=== PATIENT | female | born 1945 | race Caucasian/White ===

== ENCOUNTER 2025-01-26 16:02 | Inpatient (IN) | payer MEDICARE, OTHER, SELFPAY ==
[2025-01-26] VITALS (11 sets, daily range): BP systolic 111–197; BP diastolic 52–86; PULSE 83–123; RESP 13–38; TEMP 36.9–39; O2SAT 94–99; BMI 23.0
--- NOTE | 2025-01-26 | ECG_ITS ---
Test Reason : ? stemi Blood Pressure : */* mmHG Vent. Rate : 121 BPM Atrial Rate : 121 BPM P-R Int : 154 ms QRS Dur : 90 ms QT Int : 328 ms P-R-T Axes : 95 24 96 degrees QTcB Int : 465 ms Sinus tachycardia with Premature atrial complexes Nonspecific ST and T wave abnormality Abnormal ECG When compared with ECG of 26-Jan-2025 16:06, No significant changes seen Referred By: Generic ED Physician Electronically Signed By: ALONSO BOX
--- NOTE | 2025-01-26 | ECG_ITS ---
Test Reason : tachycardia Blood Pressure : */* mmHG Vent. Rate : 119 BPM Atrial Rate : 119 BPM P-R Int : 160 ms QRS Dur : 86 ms QT Int : 338 ms P-R-T Axes : -5 -37 -28 degrees QTcB Int : 475 ms Sinus tachycardia Left axis deviation Nonspecific ST and T wave abnormality Abnormal ECG When compared with ECG of 26-Jan-2025 16:18, No significant changes seen Referred By: Moustapha Downing Electronically Signed By: ALONSO BOX
--- NOTE | 2025-01-26 | ECG_ITS ---
Test Reason : svt Blood Pressure : */* mmHG Vent. Rate : 182 BPM Atrial Rate : * BPM P-R Int : * ms QRS Dur : 86 ms QT Int : 230 ms P-R-T Axes : * 42 163 degrees QTcB Int : 400 ms Atrial fibrillation with rapid ventricular response Marked ST abnormality, possible lateral subendocardial injury Abnormal ECG When compared with ECG of 26-Jan-2025 18:33, Atrial fibrillation has replaced Sinus rhythm Vent. rate has increased by [address] now depressed in Anterior leads T wave inversion now evident in Lateral leads Referred By: Moustapha Downing Electronically Signed By: ALONSO BOX
--- NOTE | ~2025-01-26 | XR_ITS ---
CLINICAL HISTORY: vomiting Single view chest. Findings: The heart is enlarged. There is no CHF. No focal consolidation or pleural effusion is seen. Impression: No consolidation. There is prominence of the right hilum presumably due to the pulmonary artery however consider comparison to previous to ensure stability. This document has been electronically signed by: Grzegorz Flanagan MD on 01/26/2025 17:14:19
--- NOTE | ~2025-01-26 | FL_ITS ---
EXAMINATION: FL GUIDANCE ONLY HISTORY: RIGHT URETERAL STONE COMPARISON: Correlation is made with an unenhanced CT of the abdomen and pelvis dated 01/26/2025. TECHNIQUE: Fluoroscopy time: 96.6 seconds. Cumulative Dose: 27.39 mGy. Images: 4. FINDINGS: Images demonstrate placement of a right nephroureteral stent. Partial contrast opacification of the right intrarenal collecting system demonstrates a filling defect in the renal pelvis and an additional filling defect in a calyx in the interpolar region, compatible with calculi. FL/FL guidance in OR IMPRESSION: Fluoroscopy during procedure. Please see procedure report for additional information. Electronically signed by: Edgar Ayala MD 01/28/2025 07:12 AM EDT
--- NOTE | ~2025-01-26 | CT_ITS ---
CLINICAL HISTORY: fever, cough CT of the chest without contrast. No comparison. Findings: There is an incompletely visualized lipoma in the posterior paraspinous muscles on the right at the cervicothoracic junction. Small hiatal hernia. Mild mediastinal adenopathy is likely reactive. There is minimal pleural fluid on the right. There is severe interstitial pulmonary edema. Mild patchy airspace opacities bilaterally likely represent a combination of atelectasis and pulmonary edema. 5 mm pulmonary nodule adjacent to the left hilum series 4, image 57. There is mild motion artifact. Findings in the abdomen are described separately. Impression: Severe interstitial pulmonary edema. 5 mm nodule adjacent to the left hilum consider comparison to previous or follow-up. Other findings as above. This document has been electronically signed by: Grzegorz Flanagan MD on 01/26/2025 19:08:13
--- NOTE | ~2025-01-26 | CT_ITS ---
CLINICAL HISTORY: diffuse abd pain and vomiting CT of the abdomen and pelvis without intravenous contrast. No comparison. Findings: The liver is unremarkable. The gallbladder is mildly distended without definite cholelithiasis or adjacent inflammatory change. There is right nephrolithiasis. There are at least 2 stones in the proximal right ureter measuring up to 9 mm with moderate hydronephrosis and ill-defined perinephric fluid. There is pancreatic atrophy. There is no abdominal aortic aneurysm. There is severe aortoiliac atherosclerosis with multifocal high-grade stenosis. No diverticulitis is identified. Normal appendix. No bowel obstruction. There is a punctate collection of gas in the bladder. There are calcified uterine fibroids. There is prominent septal thickening in the lower lungs. Impression: Proximal right ureteral stones with moderate hydronephrosis. Severe aortoiliac atherosclerosis. Prominent septal thickening in the lower lung suspicious for pulmonary edema. Punctate collection of gas in the bladder possibly iatrogenic correlate clinically. Other findings as above. This document has been electronically signed by: Grzegorz Flanagan MD on 01/26/2025 18:12:21
--- NOTE | ~2025-01-26 | XR_ITS ---
CLINICAL HISTORY: ?chf 2 views chest Comparison: CT/SR - CT CHEST WO IV CON - 01/26/25 18:07 EDT CR - XR CHEST 1V - 01/26/25 16:38 EDT Findings: Cardiac and mediastinal contours are normal. Mild chronic interstitial prominence with scattered peribronchial thickening. No focal consolidation. Trace effusions possible. No pneumothorax. No acute osseous finding. Impression: Mild chronic interstitial prominence with scattered peribronchial thickening. No focal consolidation. No overt edema. Trace effusions possible. This document has been electronically signed by: Yang Wagner MD on 01/30/2025 11:33:40
--- NOTE | 2025-01-26 16:03 | ECG_ITS ---
Test Reason : CP Blood Pressure : */* mmHG Vent. Rate : 114 BPM Atrial Rate : 114 BPM P-R Int : 200 ms QRS Dur : 90 ms QT Int : 350 ms P-R-T Axes : 76 11 82 degrees QTcB Int : 482 ms Sinus tachycardia with Premature atrial complexes Nonspecific ST and T wave abnormality Abnormal ECG No previous ECGs available Referred By: Vanesa García Electronically Signed By: ALONSO BOX
--- NOTE | 2025-01-26 16:26 | ED.GENADULT ---
HPI - General Adult General Chief complaint: General Medical Stated complaint: chest pain Time Seen by Provider: 01/26/25 16:19 Source: patient and family ( Son) Mode of arrival: ambulatory Limitations: no limitations History of Present Illness ED Provider: DR. Downing HPI narrative: a 79-year-old female brought in by her son for evaluation of a generalized weakness, overall not feeling well, abdominal pain, nausea, and vomiting, no recent travel, no lower extremities swelling or tenderness, No chest pain, no shortness of breath, no fever no chills. Last bowel was this morning and was normal with no blood, no dysuria, no frequency urination. Related Data Allergies Allergy/AdvReac Type Severity Reaction Status Date / Time No Known Allergies Allergy Verified 01/26/25 16:32 Review of Systems Review of Systems: all other systems are reviewed and are negative Constitutional: Reports as per HPI and Reports no additional constitutional complaints Eyes: Reports as per HPI and Reports no additional eye complaints Reports system reviewed and no additional complaints, except as documented Cardiovascular: Reports as per HPI and Reports no additional cardiovascular complaints Respiratory: Reports as per HPI and Reports no additional respiratory complaints Gastrointestinal: Reports as per HPI and Reports no additional gastrointestinal complaints Genitourinary: Reports no additional female genitourinary complaints Musculoskeletal: Reports no additional musculoskeletal complaints Skin/Breast: Reports system reviewed and no additional complaints, except as docu Psychiatric: Reports no additional psychiatric complaints Endocrine: Reports no additional endocrine complaints Hematologic/Lymphatic: Reports no additional hematologic/lymphatic complaints Allergic/Immunologic: Reports no additional allergic/immunologic complaints Reports system reviewed and no additional complaints, except as documented and Reports Abnormal speech present [facility] Social History Social History Smoked in Last 30 Days: No Advance Directives: No Advance Directives Information Provided: No Physical Exam ED Vital Signs: Vital Signs - 24 hr 01/26/25 16:31 01/26/25 17:49 01/26/25 18:47 Temperature 101.4 F H 98.5 F Pulse Rate 114 H 116 H 123 H Respiratory Rate 18 24 H 38 H Blood Pressure 183/70 H 197/86 H 190/77 H Pulse Oximetry 94 97 96 Oxygen Delivery Method Room Air Oxymask Oxymask Oxygen Flow Rate 6 6 BMI result Body Mass Index 23.0 Vital signs have been reviewed and appear to be correct. Blood pressure elevated. Heart rate normal. Respiratory rate normal. Temperature normal. Oxygen saturation normal. Appearance: Alert. Oriented X3. No acute distress. Head: Normal external exam. Normocephalic. Atraumatic. No Love signs noted. No raccoon eyes noted Eyes: PERRLA. EOMI. Conjunctiva and sclera normal. Eyelids normal. ENT: TM's Normal. Pharynx normal. Uvula midline. Moist mucous membranes. No trismus noted. No drooling noted. No muffled voice noted. Neck: Normal inspection. Neck supple. FROM. No adenopathy. Thyroid Normal. No meningeal signs. No neck mass noted. CVS: Normal heart rate and rhythm. Heart sound normal. No murmurs noted. Pulses normal throughout. Respiratory: No respiratory distress. Painless inspiration. Breath sounds normal. No wheezes/rales/rhonchi noted. Chest nontender. No accessory muscle usage noted or decreased air movement noted. Abdomen: Soft and nontender. Bowel sounds normal in all 4 quadrants. No distention noted. No organomegaly noted. No visible injury noted. Back: R CVA tenderness. Full range of motion noted. Skin: Skin warm and dry. Normal skin color. Normal skin turgor. No rashes/lesions/lacerations noted. Extremities: No lower extremity edema. Extremities exhibit normal range of motion. Extremities nontender. Neuro: Oriented X 3. Cranial nerve exam: II-XII are grossly intact No motor deficit. No sensory deficit. Reflexes normal. Course Reevaluation(s) Reevaluation #1: 1. right proximal ureteric obstructive stone with perinephric stranding, patient with right pyelonephritis, patient received ceftriaxone, meet criteria for severe sepsis. 2. Patient received IV fluids for sepsis protocol, and ceftriaxone. 3. Case discussed with Dr. Bowers for obstructive uropathy wanted the patient to be admitted to medical service the case discussed with Dr. Conteh who accepted the patient to his service. 4. Patient had 1 episode of rapid atrial fibrillation that was controlled with metoprolol. Time: 19:19 Medications Administered Discontinued Medications Generic Name Dose Route Start Last Admin Trade Name Freq PRN Reason Stop Dose Admin Al Hydroxide/Mg Hydroxide 30 ml 01/26/25 16:26 01/26/25 17:51 Magnesium Hydrox/Alum Hydrox 30 Ml Oral.Susp PO 01/26/25 16:27 30 ml ONCE ONE Administration Ceftriaxone Sodium 1 gm 01/26/25 16:41 01/26/25 16:51 Ceftriaxone Sodium 1 Gm Vial IVPUSH 01/26/25 16:42 1 gm ONCE ONE Administration Famotidine 20 mg 01/26/25 16:26 01/26/25 16:30 Famotidine/Pf 20 Mg/2 Ml Vial IVPUSH 01/26/25 16:27 20 mg ONCE ONE Administration Sodium Chloride 1,000 mls @ 999 mls/hr 01/26/25 16:24 01/26/25 17:30 Ns IV 01/26/25 17:24 Infused .Q1H1M ONE Infusion Lactated Ringer's 1,000 mls @ 999 mls/hr 01/26/25 16:45 01/26/25 17:30 Lr IV 01/26/25 17:45 999 mls/hr .Q1H1M NATALIIA Infusion Acetaminophen 1,000 mg in 100 mls @ 400 mls/hr 01/26/25 18:58 01/26/25 19:00 Ofirmev IV 01/26/25 19:12 400 mls/hr ONCE ONE Administration Metoprolol Tartrate 5 mg 01/26/25 18:55 01/26/25 19:01 Metoprolol Tartrate 5 Mg/5 Ml Vial IVPUSH 01/26/25 18:56 5 mg ONCE ONE Administration Protocol Ondansetron HCl 4 mg 01/26/25 16:26 01/26/25 16:30 Ondansetron Hcl 4 Mg/2 Ml Vial IVPUSH 01/26/25 16:27 4 mg ONCE ONE Administration Ondansetron HCl 4 mg 01/26/25 18:57 01/26/25 19:00 Ondansetron Hcl 4 Mg/2 Ml Vial IVPUSH 01/26/25 18:58 4 mg ONCE ONE Administration Medical Decision Making Differential Diagnosis Differential Diagnoses: The differential diagnosis associated with the presentation includes ( simple UTI, pyelonephritis, kidney stone, pneumonia, pneumothorax, congestive heart failure, sepsis,) Admission/Observation Consideration of admission/observation: Escalation of care including admission/observation considered Consult Healthcare Provider Management of the patient was discussed with: Hospitalist ( Dr. Conteh) and [employer] ( Dr. Bowers) Lab Data MDM Lab Attestation statement: I reviewed the patient's lab results. 01/26/25 16:26 01/26/25 16:26 Labs: Lab Results 01/26/25 01/26/25 01/26/25 Range/Units 16:26 16:46 17:19 WBC 17.5 H (4.8-10.8) X10*3/uL RBC 5.21 (4.20-5.50) X10*6/uL Hgb 14.7 (12.0-16.0) g/dl Hct 40.8 (37.0-47.0) % MCV 78.3 L (80.0-98.0) fL MCH 28.2 (27.0-33.0) pg MCHC 36.0 H (31.0-35.0) g/dl RDW 13.8 (11.0-16.0) % Plt Count 205 (160-400) X10*3/uL MPV 9.9 (9.4-12.3) fL Immature Gran % (Auto) 0.6 H (0.0-0.4) % Neut % (Auto) 89.0 H (45-73) % Lymph % (Auto) 3.1 L (20-40) % [place] % (Auto) 7.2 (2-11) % Eos % (Auto) 0.0 (0-4) % Baso % (Auto) 0.1 (0-2) % Lymph # (Auto) 0.5 L (1.2-4.9) X10*3/uL [place] # (Auto) 1.3 H (0.1-1.2) X10*3/uL Eos # (Auto) 0.0 (0.0-0.4) X10*3/uL Baso # (Auto) 0.0 (0.0-0.2) X10*3/uL Abs Immat Gran (auto) 0.11 H (0.00-0.03) X10*3/uL Absolute Neuts (auto) 15.6 H (2.0-8.3) x10*3/uL Absolute Nucleated RBC 0.000 (0.0-0.012) X10*3/uL Nucleated RBC % (auto) 0.0 (0.0-0.2) /100WBC PT 13.1 H (10.9-12.4) SEC INR 1.1 (0.9-1.1) Hold Blue Top SEE NOTE Sodium 136 (135-145) mmol/L Potassium 3.9 (3.3-5.1) mmol/L Chloride 102 (96-108) mmol/L Carbon Dioxide 20 L (22-29) mmol/L Anion Gap 18 (12-20) BUN 32 H (9-16) mg/dL Creatinine 0.85 (0.5-1.4) mg/dL Estim Creat Clear Calc 41.1 Estimated GFR > 60 Random Glucose 235 H (60-115) mg/dL Lactic Acid 2.7 H* (0.5-2.0) mmol/L Calcium 10.1 (8.4-10.2) mg/dL Total Bilirubin 1.3 H (0.0-1.0) mg/dL Direct Bilirubin 0.4 (0.0-0.5) mg/dL AST 26 (5-31) U/L ALT 13 (0-31) U/L Alkaline Phosphatase 74 (39-117) U/L Troponin I High Sens 25.5 H (<3.5-17.0) ng/L B-Natriuretic Peptide 1041 H (<100) pg/mL Total Protein 7.9 (6.5-8.0) g/dL Albumin 4.5 (3.5-5.0) g/dL Lipase 15 (8-78) U/L Urine Color Yellow Urine Appearance Cloudy Urine pH 5.5 (5.0-9.0) Ur Specific [place] 1.025 (1.005-1.025) Urine Protein 300 (3+) H (Neg-Trace) mg/dL Urine Glucose (UA) >=1000 H (Negative) mg/dL Urine Ketones 15 (Negative) mg/dL Urine Blood Small (1+) H (Negative) Urine Nitrite Positive H (Negative) Ur Leukocyte Esterase Moderate (2+) H (Negative) Urine RBC 0-2 (0-2) /HPF Urine WBC 6-10 (0-5) /HPF Ur Squamous Epith Cells 0-2 (0-2) /HPF Urine Bacteria 4+ (None Seen) Hyaline Casts 3-5 (0-2) /LPF Influenza Type A (PCR) NEGATIVE (Negative) Influenza Type B (PCR) NEGATIVE (Negative) RSV RNA Qual (PCR) NEGATIVE (Negative) SARS-CoV-2 RNA (RT-PCR) NEGATIVE (Negative) Independent Interpretation I performed an independent interpretation of an: CT Scan ( chest: Abdomen pelvis:Severe interstitial pulmonary edema. 5 mm nodule adjacent to the left hilum consider comparison to previous or follow-up.Proximal right ureteral stones with moderate hydronephrosis. Severe aortoiliac atherosclerosis. Prominent septal thickening in the lower lung suspicious fo) Radiology Impression Discussion of test interpretation with radiology: I have reviewed the radiologist's reading. Critical Care Time Critical Care Time Critical Care Time: Yes Total Critical Care Time: 60 Attestation: The patient was critically ill with a high probability of imminent or life-threatening deterioration. I spent greater than 30 minutes of discontinuous time evaluating the patient, delivering critical care at the bedside, discussing evaluating data with consultants. Critical care time does not include time spent performing separately billable procedures or teaching. Time spent performing critical care was 60 minutes. Discharge Plan Discharge Clinical Impression: Acute pyelonephritis, Acute unilateral obstructive uropathy, Sepsis, Atrial fibrillation with RVR Patient Disposition: Admitted As Inpatient Print Language: Divehi
[2025-01-26] MEDS: 0.9 % Sodium Chloride 1,000 ML 999 ML IV (16:29)
[2025-01-26] MEDS: ondansetron HCL 4 MG/2 ML VIAL IVPUSH ×2 (16:30→19:00)
[2025-01-26] MEDS: Famotidine/PF 20 MG/2 ML VIAL IVPUSH (16:30)
[2025-01-26 16:36] LABS: MANUAL DIFF FLAG NO
[2025-01-26 16:38] LABS: Basophils Percent Auto 0.1 % (0-2); Hematocrit 40.8 % (37.0-47.0); Hemoglobin 14.7 g/dl (12.0-16.0); Imm Gran Abs Auto 0.11 X10*3/uL (0.00-0.03); Imm Gran Pct Auto 0.6 % (0.0-0.4); Lymphocytes Absolute Auto 0.5 X10*3/uL (1.2-4.9); Lymphocytes Percent Auto 3.1 % (20-40); Mean Corpuscular Hemoglobin 28.2 pg (27.0-33.0); Mean Corpuscular Volume 78.3 fL (80.0-98.0); Mean Platelet Volume 9.9 fL (9.4-12.3); Monocytes Absolute Auto 1.3 X10*3/uL (0.1-1.2); Monocytes Percent Auto 7.2 % (2-11); Neutrophils Absolute Auto 15.6 x10*3/uL (2.0-8.3); Platelet Count 205 X10*3/uL (160-400); Red Blood Count 5.21 X10*6/uL (4.20-5.50); Red Cell Distribution Width 13.8 % (11.0-16.0); White Blood Count 17.5 X10*3/uL (4.8-10.8)
[2025-01-26 16:48] LABS: INTERNATIONAL NORM RATIO 1.1 (0.9-1.1); Prothrombin Time 13.1 SEC (10.9-12.4)
[2025-01-26] MEDS: cefTRIAXone sodium 1 GM VIAL IVPUSH (16:51)
[2025-01-26] MEDS: Lactated Ringers 1,000 ML 999 ML IV (16:52)
[2025-01-26 17:00] LABS: B Type Natriuretic Peptide 1041 pg/mL (<100); Troponin-I High Sensitivity 25.5 ng/L (<3.5-17.0)
[2025-01-26 17:01] LABS: Alanine Aminotransferase 13 U/L (0-31); Albumin Level 4.5 g/dL (3.5-5.0); Alkaline Phosphatase 74 U/L (39-117); Anion Gap 18 (12-20); Aspartate Amino Transferase 26 U/L (5-31); Bilirubin Direct 0.4 mg/dL (0.0-0.5); Bilirubin Total 1.3 mg/dL (0.0-1.0); Blood Urea Nitrogen 32 mg/dL (9-16); Calcium 10.1 mg/dL (8.4-10.2); Carbon Dioxide 20 mmol/L (22-29); Chloride 102 mmol/L (96-108); Creatinine Clr Calc Pharmacy 41.1; Estimated Glomerular Filt Rate > 60; Glucose Random 235 mg/dL (60-115); Lipase 15 U/L (8-78); Potassium 3.9 mmol/L (3.3-5.1); Sodium 136 mmol/L (135-145); Total Protein 7.9 g/dL (6.5-8.0)
[2025-01-26 17:13] LABS: Lactic Acid 2.7 mmol/L (0.5-2.0)
[2025-01-26 17:29] LABS: Appearance Urine Cloudy; Color Urine Yellow; Glucose Urine UA >=1000 mg/dL (Negative); Leukocyte Esterase Urine Moderate (2+) (Negative); Nitrite Urine Positive (Negative); PH 5.5 (5.0-9.0); Specific Gravity - Urine 1.025 (1.005-1.025); UMIC TRIGGER UACC YES; Urine Blood Small (1+) (Negative); Urine Ketones 15 mg/dL (Negative); Urine Protein 300 (3+) mg/dL (Neg-Trace)
[2025-01-26 17:46] LABS: Bacteria Urine 4+ (None Seen); RBC Urine 0-2 /HPF (0-2); Squamous Epithelial Cell Urine 0-2 /HPF (0-2); UACC Culture Trigger YES
--- NOTE | 2025-01-26 17:49 | PC.NURSE ---
patient was found to be hypoxic at 81% on room air and tachypneic w/ respirations in the 30's. patient reporting feeling short of breath. placed on 6L oxymask, oxygen now 97%. provider made aware.
[2025-01-26] MEDS: Magnesium Hydrox/Alum Hydrox 30 ML ORAL.SUSP PO (17:51)
[2025-01-26 17:58] LABS: Influenza A PCR NEGATIVE (Negative); Influenza B PCR NEGATIVE (Negative); Resp Syncy Virus RNA Qual PCR NEGATIVE (Negative); SARS COV2 PCR INHOUSE NEGATIVE (Negative)
[2025-01-26 18:50] LABS: Reflex Lactate? Lactic Acid Added
[2025-01-26] MEDS: Acetaminophen 1,000 MG/100 ML PIGGYBACK 400 MG IV (19:00)
[2025-01-26] MEDS: Metoprolol Tartrate 5 MG/5 ML VIAL IVPUSH (19:01)
[2025-01-26] MEDS: Furosemide 40 MG/4 ML VIAL IVPUSH (19:27)
--- NOTE | 2025-01-26 19:33 | P.HPHOSP_ITS ---
History of Present Illness Date of Service: 01/26/25 Chief Complaint: Abd pain, nausea, vomiting This is a 79-year-old female with pertinent history of dis-dulvjbl-unegwvajt diabetes mellitus, hypertension, mood disorder, mixed hyperlipidemia who presents due to the emergency department for evaluation of generalized weakness and abdominal pain. Patient states she has been feeling unwell for a week. She has been feeling weak and is with easy fatigability and malaise. Also has been having right-sided flank pain which radiates to her groin. Has associated nausea and nonbloody emesis. Also having chills but no documented temperature at home. Minimal dyspnea but no chest pain or palpitations. Patient does endorse burning with micturition but no changes in bowel habits. In the emergency department, patient was found to be septic and urine concerning for UTI. Imaging with right ureteral stone with hydronephrosis. Also found to be in AFib with RVR. Imaging also revealed interstitial pulmonary edema and BNP was found to be elevated. Review of Systems 2 Constitutional: Constitutional: Reports fatigue, Reports lethargy, Reports malaise and Reports weakness Cardiovascular: Cardiovascular: Reports dyspnea on exertion Respiratory: Respiratory: Reports dyspnea on exertion Gastrointestinal: Gastrointestinal: Reports no additional gastrointestinal complaints Genitourinary: Genitourinary: Reports dysuria Neurologic: Reports weakness Endocrine: Endocrine: Reports fatigue PMFSH Medical History Mood disorder Mixed hyperlipidemia Hypertension Non-insulin dependent type 2 diabetes mellitus Pertinent family history: No family history of early CAD Social History Smoked in Last 30 Days: No Advance Directives: No Advance Directives Information Provided: No Meds Allergies Allergy/AdvReac Type Severity Reaction Status Date / Time No Known Allergies Allergy Verified 01/26/25 16:32 Home Medications ?Medication ?Instructions ?Recorded ?Confirmed ?Last Taken ?Type atenolol 100 mg tablet 100 mg PO DAILY 01/26/25 Unknown History glipizide 2.5 mg tablet, extended 2.5 mg PO DAILY 01/26/25 Unknown History release 24 hr lisinopril 40 mg tablet 60 mg PO DAILY 01/26/25 Unknown History metformin 500 mg tablet,extended 500 mg PO TID 01/26/25 Unknown History release 24 hr nifedipine 30 mg tablet,extended 30 mg PO DAILY 01/26/25 Unknown History release sertraline 100 mg tablet 100 mg PO DAILY 01/26/25 Unknown History simvastatin 80 mg tablet 80 mg PO DAILY 01/26/25 Unknown History Physical Exam 2 Vital Signs and Narrative: Vital Signs: Last Vital Signs Temp 100 F 01/26/25 19:23 Pulse 114 H 01/26/25 19:23 Resp 17 01/26/25 19:23 BP 145/60 H 01/26/25 19:27 Pulse Ox 97 01/26/25 19:23 O2 Del Method Nasal Cannula 01/26/25 19:23 O2 Flow Rate 4 01/26/25 19:23 BMI result Body Mass Index 23.0 Middle-aged female lying in bed in no distress Neck supple Irregularly irregular Bilateral crackles present Abdomen with right-sided CVA tenderness, no rigidity Patient is awake, alert and oriented x3; no focal motor deficit Psych: Normal mood Results Labs 01/26/25 16:26 01/26/25 16:26 Labs: Laboratory Results - last 24 hr 01/26/25 01/26/25 01/26/25 16:26 16:46 17:19 MCV 78.3 L MCH 28.2 MCHC 36.0 H RDW 13.8 Plt Count 205 MPV 9.9 Immature Gran % (Auto) 0.6 H Neut % (Auto) 89.0 H Lymph % (Auto) 3.1 L [place] % (Auto) 7.2 Eos % (Auto) 0.0 Baso % (Auto) 0.1 Lymph # (Auto) 0.5 L [place] # (Auto) 1.3 H Eos # (Auto) 0.0 Baso # (Auto) 0.0 Abs Immat Gran (auto) 0.11 H Absolute Neuts (auto) 15.6 H Absolute Nucleated RBC 0.000 Nucleated RBC % (auto) 0.0 PT 13.1 H INR 1.1 Hold Blue Top SEE NOTE Anion Gap 18 Estim Creat Clear Calc 41.1 Estimated GFR > 60 Random Glucose 235 H Lactic Acid 2.7 H* Calcium 10.1 Total Bilirubin 1.3 H Direct Bilirubin 0.4 AST 26 ALT 13 Alkaline Phosphatase 74 B-Natriuretic Peptide 1041 H Total Protein 7.9 Albumin 4.5 Lipase 15 Urine Color Yellow Urine Appearance Cloudy Urine pH 5.5 Ur Specific [place] 1.025 Urine Protein 300 (3+) H Urine Glucose (UA) >=1000 H Urine Ketones 15 Urine Blood Small (1+) H Urine Nitrite Positive H Ur Leukocyte Esterase Moderate (2+) H Urine RBC 0-2 Urine WBC 6-10 Ur Squamous Epith Cells 0-2 Urine Bacteria 4+ Hyaline Casts 3-5 Influenza Type A (PCR) NEGATIVE Influenza Type B (PCR) NEGATIVE RSV RNA Qual (PCR) NEGATIVE SARS-CoV-2 RNA (RT-PCR) NEGATIVE Assessment and Plan (1) Sepsis: Status: Acute (2) Atrial fibrillation with RVR: Status: Acute (3) Acute unilateral obstructive uropathy: Status: Acute (4) Acute pyelonephritis: Status: Acute (5) Congestive heart failure: Status: Acute Plan This is a 79-year-old female with pertinent history of lrh-trwgzaa-uurxzjhzy diabetes mellitus, hypertension, mood disorder, mixed hyperlipidemia who presents due to the emergency department for evaluation of generalized weakness and abdominal pain. #. Severe sepsis due to right-sided clinical pyelonephritis with ureteral stones and moderate hydronephrosis: Will admit patient with IV ceftriaxone. Consulted Urology, appreciate assistance. Lactic acid, urine culture and blood culture obtained #. AFib with RVR: Rate controlled with IV Lopressor push in the ER. Continue to monitor. Obtaining TSH and echo. Consulted Cardiology #. Acute decompensated congestive heart failure, unknown EF: Likely worsened due to iatrogenic administration of crystalloids. Will give 1 dose of IV Lasix and monitor volume status. Echo as above #. Acute lactic acidosis due to sepsis #. Xol-icqtkbs-ushippqmc diabetes mellitus with hyperglycemia: Initiating Accu-Cheks with sliding scale insulin #. Hypertension: Resume home antihypertensives once med rec is complete #. Mixed hyperlipidemia: On statin #. Mood disorder: Resume home mood stabilizers Med rec pending DVT prophylaxis: Hold Lovenox until urological evaluation Full code. Discussed with patient at bedside Admit as inpatient and will require two night minimum hospital stay for IV antibiotics, IV diuresis, monitoring of heart rate (as above), which is not possible in a lesser acute setting. Specialist consult pending Quality Stroke Does the patient have a stroke diagnosis?: No VTE Prior VTE?: No VTE Risk Level:: Medical - moderate - high VTE Device Contraindication: N/A - Device Ordered VTE Drug Contraindication: Treatment Not Indicated
[2025-01-26 19:40] LABS: ~Lactic Acid-LAB USE ONLY 2.1 mmol/L (0.5-2.0)
[2025-01-26 20:24] LABS: Troponin-I High Sensitivity 47.7 ng/L (<3.5-17.0)
[2025-01-26 21:14] LABS: Reflex Lactate? 2 Y
[2025-01-26 21:49] LABS: ~Lactic Acid-LAB USE ONLY 1.7 mmol/L (0.5-2.0)
--- NOTE | 2025-01-26 22:39 | PHA.MEDREC ---
Addendum entered by Geoffrey Barrera 01/26/25 22:52: reviewed Original Note: Pharmacy Consult ? Medication Reconciliation Pharmacy has completed the medication reconciliation. Spoke with patient and she was able to confirm her medications. Patient confirmed her Lisinopril 40mg tab and confirmed she takes 1 1/2 tab (60mg) daily of that.
[2025-01-26] MEDS: Insulin Lispro 100 UNIT/ML 3 ML VIAL SUBCUT (23:10)
[2025-01-26 23:16] LABS: Glucose, Whole Blood 257 mg/dL (60-115)
[2025-01-27] VITALS (13 sets, daily range): BP systolic 131–197; BP diastolic 51–87; PULSE 68–98; RESP 17–24; TEMP 36.2–38.4; O2SAT 86–98; BMI 23.2
--- NOTE | 2025-01-27 07:00 | CA_ITS ---
Transthoracic Echocardiogram Patient (Last, First, Middle): Yumiko Rosenbaum C Gender: Female Date of : 1945 Age: 79 Procedure Date: 01/27/2025 Procedure Type: Transthoracic Echocardiogram Location: [facility] – [place] Height: 154.94 cm Weight: 55.34 kg BSA: 1.53 m2 Heart Rate: bpm BP: 147 / 63 mmHg Rn House Supervisor: TO Referring MD: Renee Conteh MD Symptoms: CHF Study Quality: Adequate ECG Rhythm: Sinus Conclusions: - The left ventricular systolic function is low normal. The calculated ejection fraction is 54% by biplane method. - Evidence suggests grade II (moderate) diastolic dysfunction. - There is moderate mitral annular calcification. There is mild mitral valve regurgitation. - There is mild to moderate tricuspid valve regurgitation. - Moderate pulmonary hypertension is present. Findings Left Ventricle Normal left ventricular cavity size. The left ventricular systolic function is low normal. The calculated ejection fraction is 54% by biplane method. There is no evidence of regional wall motion abnormalities. Evidence suggests grade II (moderate) diastolic dysfunction. There is mild septal asymmetric hypertrophy. Right Ventricle Normal right ventricular cavity size and systolic function. Atria The left atrium is moderately dilated. The right atrium is mildly dilated. Aortic Valve There is a normal trileaflet aortic valve. There is mild calcification of the aortic valve. There is no aortic valve stenosis. There is no aortic valve regurgitation. Mitral Valve There is moderate mitral annular calcification. There is mild mitral valve regurgitation. There is no mitral valve stenosis. Pulmonic Valve The pulmonic valve is likely normal. Tricuspid Valve Normal tricuspid valve structure. There is mild to moderate tricuspid valve regurgitation. Moderate pulmonary hypertension is present. Great Vessels The asc aorta is normal in size. Venous The inferior vena cava is mildly dilated and collapses less than 50% with inspiration. Radiolucent structure in the liver, 9.4 x 4.2 cm. Cystic versus gallbladder. Correlate with dedicated imaging. Pericardium/Pleural There is no evidence of pericardial effusion. Prior Study Comparison No prior study available for comparison. Measurements 2D Linear Measurements IVSd: 1.13 0.6-0.9/0.6-1.0 cm LVIDd: 4.36 3.9-5.3/4.2-5.9 cm LVIDd Index: 2.85 2.4-3.2/2.2-3.1 cm/m2 LVIDs: 3.47 2.0-3.6 cm LVPWd: 0.83 0.7-1.1 cm LA Diam: 3.70 2.7-3.8/3.0-4.0 cm LAIDs Index: 2.42 1.5-2.3 cm/m2 LV Mass: 176.34 67-162/88-224 g LV Mass Index: 115.25 43-95/49-115 g/m2 LVOT Diam: 1.90 3.0+(-)1.3 cm 2D Systolic Function EF 4C: 56.10 >55% EF 2C: 51.10 >55% EF BiP: 53.90 >55% Mitral Valve MV VTI: 0.32 MV Pk Js: 1.48 MV Mn Js: 0.65 MV Pk Grad: 9.00 MV Mn Grad: 2.00 MV Pk E: 1.35 MV PK A: 0.44 MV Decel Time: 135.00 E/A: 3.10 E'Lateral: 4.24 E'Medial: 3.81 E/E' Med: 35.40 E/E' Lat: 31.80 PHT: 40.00 MVA PHT: 5.50 MVA Continuity: 1.21 Decel [place]: 10.02 Aortic Valve AoV Pk Js: 1.51 AoV Mn Js: 1.15 AoV VTI: 0.35 AoV Pk Grad: 9.00 Aov Mn Grad: 6.00 OMID Cont.VTI: 1.11 LVOT LVOT Pk Js: 0.61 LVOT Mn Js: 0.42 LVOT VTI: 0.14 LVOT Pk Grad: 1.00 LVOT Mn Grad: 1.00 LVOT Diam: 1.90 LVOT Area: 2.84 Diastolic Function MV Pk E: 1.35 MV Pk A: 0.44 E/A: 3.10 E'Medial: 3.81 E/E' Med: 35.40 E' Laterial: 4.24 E/E' Lat: 31.80 Right Ventricle TAPSE (mm): 16.10 TVS' Js: 11.30 Tricuspid Valve TR Pk Js: 3.61 TR Pk Grad: 52.00 RA Press: 15.00 RVSP: 67.00 Great Vessels Aorta Sinus of Valsalva: 2.97 2.0-3.5 cm Ao Asc: 3.30 2.1-3.4 cm Updated in Other Vendor System with Status of Final Simeon Rock MD electronically signed on 01/27/2025 3:33:15 PM with status of Final
[2025-01-27 07:51] LABS: Glucose, Whole Blood 182 mg/dL (60-115)
[2025-01-27 08:14] LABS: Hematocrit 34.8 % (37.0-47.0); Hemoglobin 12.2 g/dl (12.0-16.0); Mean Corpuscular HGB Conc 35.1 g/dl (31.0-35.0); Mean Corpuscular Hemoglobin 28.2 pg (27.0-33.0); Mean Corpuscular Volume 80.4 fL (80.0-98.0); Mean Platelet Volume 10.5 fL (9.4-12.3); Platelet Count 145 X10*3/uL (160-400); Red Blood Count 4.33 X10*6/uL (4.20-5.50); Red Cell Distribution Width 13.7 % (11.0-16.0); White Blood Count 10.7 X10*3/uL (4.8-10.8)
[2025-01-27 08:18] LABS: Anion Gap 14 (12-20); Blood Urea Nitrogen 27 mg/dL (9-16); Calcium 8.9 mg/dL (8.4-10.2); Carbon Dioxide 24 mmol/L (22-29); Chloride 104 mmol/L (96-108); Creatinine Clr Calc Pharmacy 47.9; Estimated Glomerular Filt Rate > 60; Glucose Random 176 mg/dL (60-115); Potassium 3.6 mmol/L (3.3-5.1); Sodium 138 mmol/L (135-145)
[2025-01-27] MEDS: Insulin Lispro 100 UNIT/ML 3 ML VIAL SUBCUT ×3 (08:18→22:04)
[2025-01-27] MEDS: 0.9 % Sodium Chloride Flush 3 ML SYRINGE IVFLUSH ×3 (08:19→17:52)
[2025-01-27] MEDS: atenoloL 100 MG TABLET PO (08:20)
[2025-01-27 08:43] LABS: Thyroid Stimulating Hormone 0.57 uIU/mL (0.32-4.0)
--- NOTE | 2025-01-27 09:04 | MHC.CM.PN ---
IMM 01/27/25, Pt lives alone, she does not have home health services or use DME. PCP is confirmed: Zhao Carrillo, HCP is her sons, she will complete form here and it will be added to chart. Family to transport home at [place]. DCP: home, self care, CM to follow for DC needs.
--- NOTE | 2025-01-27 09:49 | HO.PM.IMPN ---
Subjective Subjective Date of Service: 01/27/25 Interval History: weakness, right flank pain Physical Exam Vital Signs: Vital Signs: Last Vital Signs Temp 97.7 F 01/27/25 08:00 Pulse 93 01/27/25 08:00 Resp 17 01/27/25 08:00 BP 183/74 H 01/27/25 08:00 Pulse Ox 98 01/27/25 08:00 O2 Del Method Room Air 01/27/25 08:00 O2 Flow Rate 2 01/27/25 02:42 BMI result Body Mass Index 23.2 General: AO X 3, no acute distress Resp: CTA bilateral, no accessory muscles used CVS: S1,S2,RRR GI: soft, non tender, non distended Neuro: motor grossly intact, alert Psych: appropriate affect, appropriate insight Objective Data Active Medications Acetaminophen (Acetaminophen 325 Mg Tablet) 650 mg PO Q6H PRN PRN Reason: Pain, Mild 1-3,fever,headache Atenolol (Atenolol 100 Mg Tablet) 100 mg PO DAILY [facility] TO [facility]; Protocol Last Admin: 01/27/25 08:20 Dose: 100 mg Documented By: ZULEYKA Calcium Carbonate (Calcium Carbonate 750 Mg Tab.Chew) 750 mg PO Q4H PRN PRN Reason: Heartburn Ceftriaxone Sodium (Ceftriaxone Sodium 1 Gm Vial) 1 gm IVPUSH Q24H [facility]ENDING S[facility] TO [facility] Dextrose (Dextrose 50 % 25 Gm/50 Ml Syringe) 25 gm IVPUSH Q15M PRN; Protocol PRN Reason: per Hypoglycemia Standing Ord. Glucose (Glucose Gel 15 Gm Gel..Gram.) 15 gm PO Q15M PRN; Protocol PRN Reason: per Hypoglycemia Standing Ord. Insulin Human Lispro (Insulin Lispro 100 Unit/Ml 3 Ml Vial) 0 unit SUBCUT QIDACHS [facility]ENDING [facility] TO [facility]; Protocol Last Admin: 01/27/25 08:18 Dose: 2 unit Documented By: ZULEYKA Magnesium Hydroxide (Milk Of Magnesia 30 Ml Oral.Susp) 30 ml PO DAILY PRN PRN Reason: Constipation Melatonin (Melatonin 3 Mg Tablet) 6 mg PO BEDTIME PRN PRN Reason: Insomnia Ondansetron HCl (Ondansetron Hcl 4 Mg/2 Ml Vial) 4 mg IVPUSH Q8H PRN PRN Reason: Nausea and Vomiting Sertraline HCl (Sertraline Hcl 100 Mg Tablet) 100 mg PO DAILY [facility] Sodium Chloride (0.9 % Sodium Chloride Flush 3 Ml Syringe) 3 ml IVFLUSH QSHIFT PENDING S[facility] Last Admin: 01/27/25 08:19 Dose: 3 ml Documented By: ZULEYKA Labs 01/27/25 07:17 01/27/25 07:17 Labs: Laboratory Results - last 24 hr 01/26/25 01/26/25 01/26/25 16:26 16:46 17:19 MCV 78.3 L MCH 28.2 MCHC 36.0 H RDW 13.8 Plt Count 205 MPV 9.9 Immature Gran % (Auto) 0.6 H Neut % (Auto) 89.0 H Lymph % (Auto) 3.1 L [place] % (Auto) 7.2 Eos % (Auto) 0.0 Baso % (Auto) 0.1 Lymph # (Auto) 0.5 L [place] # (Auto) 1.3 H Eos # (Auto) 0.0 Baso # (Auto) 0.0 Abs Immat Gran (auto) 0.11 H Absolute Neuts (auto) 15.6 H Absolute Nucleated RBC 0.000 Nucleated RBC % (auto) 0.0 PT 13.1 H INR 1.1 Hold Blue Top SEE NOTE Anion Gap 18 Estim Creat Clear Calc 41.1 Estimated GFR > 60 POC Glucose Random Glucose 235 H Lactic Acid 2.7 H* Lactic Acid F/U @ 2Hr Lactic Acid F/U @ 4Hr Calcium 10.1 Total Bilirubin 1.3 H Direct Bilirubin 0.4 AST 26 ALT 13 Alkaline Phosphatase 74 B-Natriuretic Peptide 1041 H Total Protein 7.9 Albumin 4.5 Lipase 15 TSH Urine Color Yellow Urine Appearance Cloudy Urine pH 5.5 Ur Specific [place] 1.025 Urine Protein 300 (3+) H Urine Glucose (UA) >=1000 H Urine Ketones 15 Urine Blood Small (1+) H Urine Nitrite Positive H Ur Leukocyte Esterase Moderate (2+) H Urine RBC 0-2 Urine WBC 6-10 Ur Squamous Epith Cells 0-2 Urine Bacteria 4+ Hyaline Casts 3-5 Influenza Type A (PCR) NEGATIVE Influenza Type B (PCR) NEGATIVE RSV RNA Qual (PCR) NEGATIVE SARS-CoV-2 RNA (RT-PCR) NEGATIVE 01/26/25 01/26/25 01/26/25 19:11 21:30 23:07 MCV MCH MCHC RDW Plt Count MPV Immature Gran % (Auto) Neut % (Auto) Lymph % (Auto) [place] % (Auto) Eos % (Auto) Baso % (Auto) Lymph # (Auto) [place] # (Auto) Eos # (Auto) Baso # (Auto) Abs Immat Gran (auto) Absolute Neuts (auto) Absolute Nucleated RBC Nucleated RBC % (auto) PT INR Hold Blue Top Anion Gap Estim Creat Clear Calc Estimated GFR POC Glucose 257 H Random Glucose Lactic Acid Lactic Acid F/U @ 2Hr 2.1 H* Lactic Acid F/U @ 4Hr 1.7 Calcium Total Bilirubin Direct Bilirubin AST ALT Alkaline Phosphatase B-Natriuretic Peptide Total Protein Albumin Lipase TSH Urine Color Urine Appearance Urine pH Ur Specific [place] Urine Protein Urine Glucose (UA) Urine Ketones Urine Blood Urine Nitrite Ur Leukocyte Esterase Urine RBC Urine WBC Ur Squamous Epith Cells Urine Bacteria Hyaline Casts Influenza Type A (PCR) Influenza Type B (PCR) RSV RNA Qual (PCR) SARS-CoV-2 RNA (RT-PCR) 01/27/25 01/27/25 07:17 07:41 MCV 80.4 MCH 28.2 MCHC 35.1 H RDW 13.7 Plt Count 145 L D MPV 10.5 Immature Gran % (Auto) Neut % (Auto) Lymph % (Auto) [place] % (Auto) Eos % (Auto) Baso % (Auto) Lymph # (Auto) [place] # (Auto) Eos # (Auto) Baso # (Auto) Abs Immat Gran (auto) Absolute Neuts (auto) Absolute Nucleated RBC 0.000 Nucleated RBC % (auto) 0.0 PT INR Hold Blue Top Anion Gap 14 Estim Creat Clear Calc 47.9 Estimated GFR > 60 POC Glucose 182 H Random Glucose 176 H Lactic Acid Lactic Acid F/U @ 2Hr Lactic Acid F/U @ 4Hr Calcium 8.9 D Total Bilirubin Direct Bilirubin AST ALT Alkaline Phosphatase B-Natriuretic Peptide Total Protein Albumin Lipase TSH 0.57 Urine Color Urine Appearance Urine pH Ur Specific [place] Urine Protein Urine Glucose (UA) Urine Ketones Urine Blood Urine Nitrite Ur Leukocyte Esterase Urine RBC Urine WBC Ur Squamous Epith Cells Urine Bacteria Hyaline Casts Influenza Type A (PCR) Influenza Type B (PCR) RSV RNA Qual (PCR) SARS-CoV-2 RNA (RT-PCR) Microbiology Microbiology Results: Microbiology 01/26/25 16:30 Blood Culture - Preliminary Blood - Venous Prelim: GNR Gram Stain only 01/26/25 16:26 Blood Culture - Preliminary Blood - Venous Prelim: GNR Gram Stain only Assessment and Plan (1) Atrial fibrillation with RVR: Status: Acute Plan 79F PMH dm, htn, mood disorder, hld presented with weaknness and right flank pain, found to have sepsis right obstructing stone, afib with rvr Sepsis due to right nephrolithiasis obstructing with hydronephrosis and acute pyelonephritis complicated by Gram-negative hermelinda bacteremia Continue ceftriaxone, follow up Urology and cultures New onset AFib with RVR Continue atenolol, follow up echo, cardiology Acute unspecified CHF Improved with IV Lasix, follow up echo on cardio Diabetes with hyperglycemia Insulin sliding scale Hypertension Continue atenolol, lisinopril, nifedipine Mood disorder Sertraline DVT prophylaxis mechanical due to possible urological intervention Full code reason for continued hospitalization: Septic Quality Stroke Does the patient have a stroke diagnosis?: No VTE Prior VTE?: No VTE Risk Level:: Medical - moderate - high VTE Device Contraindication: N/A - Device Ordered VTE Drug Contraindication: Treatment Not Indicated
--- NOTE | 2025-01-27 10:00 | P.CONCA_ITS ---
History of Present Illness History of Present Illness Date of Service: 01/27/25 Chief complaint: Abd pain Narrative: This is a cardiology consultation regarding atrial fibrillation and congestive heart failure. Patient presents to the ER with abdominal pain and weakness. In this context, diagnosed with pyelonephritis/hydronephrosis. Complicated by atrial fibrillation rapid rate and question of heart failure. Patient herself denies any prior cardiac history. No coronary disease or myocardial infarction or cardiomyopathy or in fact any other cardiac issues. She also denies any complaints like angina or shortness of breath or palpitations or any other cardiac complaints at this time. She states that she feels okay. Review of Systems 2 Review of Systems: Yes all other systems are reviewed and are negative Constitutional: Constitutional: Reports as per HPI and Reports no additional constitutional complaints Eyes: Eyes: Reports as per HPI and Denies no additional eye complaints ENT: Denies system reviewed and no additional complaints, except as documented and Reports as per HPI Cardiovascular: Cardiovascular: Reports as per HPI, Reports no additional cardiovascular complaints, Denies acrocyanosis, Denies cool extremities, Denies chest pain, Denies leg edema, Denies lightheadedness, Denies palpitations and Denies dyspnea Respiratory: Respiratory: Reports as per HPI, Denies no additional respiratory complaints and Denies dyspnea Gastrointestinal: Gastrointestinal: Reports as per HPI and Denies no additional gastrointestinal complaints Genitourinary: Genitourinary: Reports as per HPI Musculoskeletal: Musculoskeletal: Reports no additional musculoskeletal complaints and Reports as per HPI Integumentary/Breasts: Skin/Breast: Reports system reviewed and no additional complaints, except as docu Neurologic: Reports system reviewed and no additional complaints, except as documented and Reports as per HPI Psychiatric: Psychiatric: Reports no additional psychiatric complaints and Reports as per HPI Endocrine: Endocrine: Reports no additional endocrine complaints, Reports as per HPI and Denies palpitations Hematologic/Lymphatic: Hematologic/Lymphatic: Reports no additional hematologic/lymphatic complaints and Reports as per HPI Allergic/Immunologic: Allergic/Immunologic: Reports no additional allergic/immunologic complaints and Reports as per HPI [facility] Past Medical History Medical History Mood disorder Mixed hyperlipidemia Hypertension Non-insulin dependent type 2 diabetes mellitus Family History Pertinent family history: No pertinent family history Social History Social History Household Members: None Housing: House Do you presently have visiting nurse or other home services: No Patient Tobacco Use Status: Never used Tobacco service: No Meds Allergies Allergy/AdvReac Type Severity Reaction Status Date / Time No Known Allergies Allergy Verified 01/26/25 16:32 Active Medications: Current Medications Acetaminophen (Acetaminophen 325 Mg Tablet) 650 mg PO Q6H PRN PRN Reason: Pain, Mild 1-3,fever,headache Atenolol (Atenolol 100 Mg Tablet) 100 mg PO DAILY [facility]; Protocol Last Admin: 01/27/25 08:20 Dose: 100 mg Calcium Carbonate (Calcium Carbonate 750 Mg Tab.Chew) 750 mg PO Q4H PRN PRN Reason: Heartburn Ceftriaxone Sodium (Ceftriaxone Sodium 1 Gm Vial) 1 gm IVPUSH Q24H [facility] Dextrose (Dextrose 50 % 25 Gm/50 Ml Syringe) 25 gm IVPUSH Q15M PRN; Protocol PRN Reason: per Hypoglycemia Standing Ord. Glucose (Glucose Gel 15 Gm Gel..Gram.) 15 gm PO Q15M PRN; Protocol PRN Reason: per Hypoglycemia Standing Ord. Insulin Human Lispro (Insulin Lispro 100 Unit/Ml 3 Ml Vial) 0 unit SUBCUT QIDACHS [facility]; Protocol Last Admin: 01/27/25 08:18 Dose: 2 unit Lisinopril (Lisinopril 20 Mg Tablet) 60 mg PO DAILY [facility]; Protocol Magnesium Hydroxide (Milk Of Magnesia 30 Ml Oral.Susp) 30 ml PO DAILY PRN PRN Reason: Constipation Melatonin (Melatonin 3 Mg Tablet) 6 mg PO BEDTIME PRN PRN Reason: Insomnia Nifedipine (Nifedipine Er 30 Mg Tab.Er.24) 30 mg PO DAILY [facility] Ondansetron HCl (Ondansetron Hcl 4 Mg/2 Ml Vial) 4 mg IVPUSH Q8H PRN PRN Reason: Nausea and Vomiting Sertraline HCl (Sertraline Hcl 100 Mg Tablet) 100 mg PO DAILY [facility] Sodium Chloride (0.9 % Sodium Chloride Flush 3 Ml Syringe) 3 ml IVFLUSH QSHIFT [facility] Last Admin: 01/27/25 08:19 Dose: 3 ml Home Medications ?Medication ?Instructions ?Recorded ?Confirmed ?Last Taken ?Type acetaminophen 325 mg tablet 325 mg PO Q4H PRN Pain 01/26/25 01/26/25 Unknown History (Tylenol) atenolol 100 mg tablet 100 mg PO DAILY 01/26/25 01/26/25 01/25/25 History calcium carbonate 500 mg PO DAILY 01/26/25 01/26/25 01/25/25 History glipizide 2.5 mg tablet, extended 2.5 mg PO DAILY 01/26/25 01/26/25 01/25/25 History release 24 hr lisinopril 40 mg tablet 60 mg PO DAILY 01/26/25 01/26/25 01/25/25 History metformin 500 mg tablet,extended 500 mg PO TID 01/26/25 01/26/25 01/25/25 History release 24 hr [id number] ac 400 1 tab PO DAILY 01/26/25 01/26/25 01/25/25 History mcg-calcium carb 500 mg-vit K1 20 mcg tablet (Women's 50 Plus Multivitamin) nifedipine 30 mg tablet,extended 30 mg PO DAILY 01/26/25 01/26/25 01/25/25 History release sertraline 100 mg tablet 100 mg PO DAILY 01/26/25 01/26/25 01/25/25 History simvastatin 80 mg tablet 80 mg PO BEDTIME 01/26/25 01/26/25 01/25/25 History Physical Exam 2 Vital Signs: Vital Signs: Last Vital Signs Temp 97.7 F 01/27/25 08:00 Pulse 93 01/27/25 08:00 Resp 17 01/27/25 08:00 BP 183/74 H 01/27/25 08:00 Pulse Ox 98 01/27/25 08:00 O2 Del Method Room Air 01/27/25 08:00 O2 Flow Rate 2 01/27/25 02:42 BMI result Body Mass Index 23.2 Const: General: comfortable and no acute distress O rientation/consciousness: patient oriented x3 HEENT: Other: Unremarkable Head: Yes normal to inspection Neck: Neck: Yes normal visual inspection Chest: Chest palpation & inspection: normal inspection of the chest Resp: Auscultation: clear to auscultation bilaterally Cardio: Palpation: normal PMI Heart sounds: S1 normal heart sound present, S2 normal heart sound present, no gallops, no murmurs and no rubs GI: Palpation (GI): Soft to palpation Back/Spine/Pelvis: Other: unremarkable Skin: General skin exam: no rashes or lesions noted Neuro: General: patient oriented x3 Extrem: General: Yes normal to inspection Psych: Mental Status: mental status grossly normal Objective Labs and Meds 01/27/25 07:17 01/27/25 07:17 Lab results: Laboratory Results - last 24 hr 01/26/25 01/26/25 01/26/25 16:26 16:46 17:19 WBC 17.5 H RBC 5.21 Hgb 14.7 Hct 40.8 MCV 78.3 L MCH 28.2 MCHC 36.0 H RDW 13.8 Plt Count 205 MPV 9.9 Immature Gran % (Auto) 0.6 H Neut % (Auto) 89.0 H Lymph % (Auto) 3.1 L [place] % (Auto) 7.2 Eos % (Auto) 0.0 Baso % (Auto) 0.1 Lymph # (Auto) 0.5 L [place] # (Auto) 1.3 H Eos # (Auto) 0.0 Baso # (Auto) 0.0 Abs Immat Gran (auto) 0.11 H Absolute Neuts (auto) 15.6 H Absolute Nucleated RBC 0.000 Nucleated RBC % (auto) 0.0 PT 13.1 H INR 1.1 Hold Blue Top SEE NOTE Sodium 136 Potassium 3.9 Chloride 102 Carbon Dioxide 20 L Anion Gap 18 BUN 32 H Creatinine 0.85 Estim Creat Clear Calc 41.1 Estimated GFR > 60 POC Glucose Random Glucose 235 H Lactic Acid 2.7 H* Lactic Acid F/U @ 2Hr Lactic Acid F/U @ 4Hr Calcium 10.1 Total Bilirubin 1.3 H Direct Bilirubin 0.4 AST 26 ALT 13 Alkaline Phosphatase 74 Troponin I High Sens 25.5 H B-Natriuretic Peptide 1041 H Total Protein 7.9 Albumin 4.5 Lipase 15 TSH Urine Color Yellow Urine Appearance Cloudy Urine pH 5.5 Ur Specific [place] 1.025 Urine Protein 300 (3+) H Urine Glucose (UA) >=1000 H Urine Ketones 15 Urine Blood Small (1+) H Urine Nitrite Positive H Ur Leukocyte Esterase Moderate (2+) H Urine RBC 0-2 Urine WBC 6-10 Ur Squamous Epith Cells 0-2 Urine Bacteria 4+ Hyaline Casts 3-5 Influenza Type A (PCR) NEGATIVE Influenza Type B (PCR) NEGATIVE RSV RNA Qual (PCR) NEGATIVE SARS-CoV-2 RNA (RT-PCR) NEGATIVE 0501/26/25 01/26/25 19:11 19:46 21:30 WBC RBC Hgb Hct MCV MCH MCHC RDW Plt Count MPV Immature Gran % (Auto) Neut % (Auto) Lymph % (Auto) [place] % (Auto) Eos % (Auto) Baso % (Auto) Lymph # (Auto) [place] # (Auto) Eos # (Auto) Baso # (Auto) Abs Immat Gran (auto) Absolute Neuts (auto) Absolute Nucleated RBC Nucleated RBC % (auto) PT INR Hold Blue Top Sodium Potassium Chloride Carbon Dioxide Anion Gap BUN Creatinine Estim Creat Clear Calc Estimated GFR POC Glucose Random Glucose Lactic Acid Lactic Acid F/U @ 2Hr 2.1 H* Lactic Acid F/U @ 4Hr 1.7 Calcium Total Bilirubin Direct Bilirubin AST ALT Alkaline Phosphatase Troponin I High Sens 47.7 H D B-Natriuretic Peptide Total Protein Albumin Lipase TSH Urine Color Urine Appearance Urine pH Ur Specific [place] Urine Protein Urine Glucose (UA) Urine Ketones Urine Blood Urine Nitrite Ur Leukocyte Esterase Urine RBC Urine WBC Ur Squamous Epith Cells Urine Bacteria Hyaline Casts Influenza Type A (PCR) Influenza Type B (PCR) RSV RNA Qual (PCR) SARS-CoV-2 RNA (RT-PCR) 01/26/25 01/27/25 01/27/25 23:07 07:17 07:41 WBC 10.7 RBC 4.33 Hgb 12.2 Hct 34.8 L MCV 80.4 MCH 28.2 MCHC 35.1 H RDW 13.7 Plt Count 145 L D MPV 10.5 Immature Gran % (Auto) Neut % (Auto) Lymph % (Auto) [place] % (Auto) Eos % (Auto) Baso % (Auto) Lymph # (Auto) [place] # (Auto) Eos # (Auto) Baso # (Auto) Abs Immat Gran (auto) Absolute Neuts (auto) Absolute Nucleated RBC 0.000 Nucleated RBC % (auto) 0.0 PT INR Hold Blue Top Sodium 138 Potassium 3.6 Chloride 104 Carbon Dioxide 24 Anion Gap 14 BUN 27 H Creatinine 0.73 Estim Creat Clear Calc 47.9 Estimated GFR > 60 POC Glucose 257 H 182 H Random Glucose 176 H Lactic Acid Lactic Acid F/U @ 2Hr Lactic Acid F/U @ 4Hr Calcium 8.9 D Total Bilirubin Direct Bilirubin AST ALT Alkaline Phosphatase Troponin I High Sens B-Natriuretic Peptide Total Protein Albumin Lipase TSH 0.57 Urine Color Urine Appearance Urine pH Ur Specific [place] Urine Protein Urine Glucose (UA) Urine Ketones Urine Blood Urine Nitrite Ur Leukocyte Esterase Urine RBC Urine WBC Ur Squamous Epith Cells Urine Bacteria Hyaline Casts Influenza Type A (PCR) Influenza Type B (PCR) RSV RNA Qual (PCR) SARS-CoV-2 RNA (RT-PCR) ECG Interpretation: EKG with atrial fibrillation rate of 182/Min with nonspecific ST-T changes. Prior to that, sinus tachycardia at 119/Min. Nonspecific ST-T changes. Question of inferior STEMI in the 1st EKG but do not believe it is the case. Assessment and Plan (1) Atrial fibrillation with RVR: Status: Acute (2) Congestive heart failure: Status: Acute (3) Sepsis: Status: Acute (4) Acute pyelonephritis: Status: Acute Plan Cardiac BNP level 1041. High sensitivity troponin levels are [address] chest reported have interstitial pulmonary edema. However, in the chest x- ray prior to that, no mention of pulmonary edema. It seems that she has had atrial fibrillation yesterday upon arrival but that seems to be resolved. Keep her on home dose of beta-case. May switch nifedipine to diltiazem. Hold off anticoagulation for now. Diuretics as necessary. Obtain echocardiogram. We will follow up with you. Procedures Date of Service Date of Service: 01/27/25
[2025-01-27] MEDS: Sertraline HCL 100 MG TABLET PO (11:17)
[2025-01-27 11:50] LABS: Glucose, Whole Blood 168 mg/dL (60-115)
[2025-01-27] MEDS: dilTIAZem HCL CD 120 MG CAP.ER.DEG PO (12:24)
--- NOTE | 2025-01-27 13:00 | P.CNUR_ITS ---
History of Present Illness Consult details Consult date: 01/27/25 Narrative: 79-year-old female with pertinent history of [id number] diabetes mellitus, hypertension, mood disorder, mixed hyperlipidemia who presents due to the emergency department for evaluation of generalized weakness and abdominal pain. CTAP - Right proximal ureteral stones with hydronephrosis PMFSH Past Medical History Medical History Mood disorder Mixed hyperlipidemia Hypertension Non-insulin dependent type 2 diabetes mellitus Social History Social History Household Members: None Housing: House Do you presently have visiting nurse or other home services: No Patient Tobacco Use Status: Never used Tobacco service: No Meds Allergies Allergy/AdvReac Type Severity Reaction Status Date / Time No Known Allergies Allergy Verified 01/26/25 16:32 Active Medications: Current Medications Acetaminophen (Acetaminophen 325 Mg Tablet) 650 mg PO Q6H PRN PRN Reason: Pain, Mild 1-3,fever,headache Atenolol (Atenolol 100 Mg Tablet) 100 mg PO DAILY NATALIIA; Protocol Last Admin: 01/27/25 08:20 Dose: 100 mg Calcium Carbonate (Calcium Carbonate 750 Mg Tab.Chew) 750 mg PO Q4H PRN PRN Reason: Heartburn Ceftriaxone Sodium (Ceftriaxone Sodium 1 Gm Vial) 1 gm IVPUSH Q24H NATALIIA Dextrose (Dextrose 50 % 25 Gm/50 Ml Syringe) 25 gm IVPUSH Q15M PRN; Protocol PRN Reason: per Hypoglycemia Standing Ord. Diltiazem HCl (Diltiazem Hcl Cd 120 Mg Cap.Er.Deg) 120 mg PO DAILY NATALIIA; Protocol Last Admin: 01/27/25 12:24 Dose: 120 mg Glucose (Glucose Gel 15 Gm Gel..Gram.) 15 gm PO Q15M PRN; Protocol PRN Reason: per Hypoglycemia Standing Ord. Insulin Human Lispro (Insulin Lispro 100 Unit/Ml 3 Ml Vial) 0 unit SUBCUT QIDACHS [facility]; Protocol Last Admin: 01/27/25 12:24 Dose: 2 unit Lisinopril (Lisinopril 20 Mg Tablet) 60 mg PO DAILY NATALIIA; Protocol Magnesium Hydroxide (Milk Of Magnesia 30 Ml Oral.Susp) 30 ml PO DAILY PRN PRN Reason: Constipation Melatonin (Melatonin 3 Mg Tablet) 6 mg PO BEDTIME PRN PRN Reason: Insomnia Ondansetron HCl (Ondansetron Hcl 4 Mg/2 Ml Vial) 4 mg IVPUSH Q8H PRN PRN Reason: Nausea and Vomiting Sertraline HCl (Sertraline Hcl 100 Mg Tablet) 100 mg PO DAILY [facility] Last Admin: 01/27/25 11:17 Dose: 100 mg Sodium Chloride (0.9 % Sodium Chloride Flush 3 Ml Syringe) 3 ml IVFLUSH QSHIFT [facility] Last Admin: 01/27/25 08:19 Dose: 3 ml Home Medications ?Medication ?Instructions ?Recorded ?Confirmed ?Last Taken ?Type acetaminophen 325 mg tablet 325 mg PO Q4H PRN Pain 01/26/25 01/26/25 Unknown History (Tylenol) atenolol 100 mg tablet 100 mg PO DAILY 01/26/25 01/26/25 01/25/25 History calcium carbonate 500 mg PO DAILY 01/26/25 01/26/25 01/25/25 History glipizide 2.5 mg tablet, extended 2.5 mg PO DAILY 01/26/25 01/26/25 01/25/25 History release 24 hr lisinopril 40 mg tablet 60 mg PO DAILY 01/26/25 01/26/25 01/25/25 History metformin 500 mg tablet,extended 500 mg PO TID 01/26/25 01/26/25 01/25/25 History release 24 hr fqnggldv-khd-ykkai ac 400 1 tab PO DAILY 01/26/25 01/26/25 01/25/25 History mcg-calcium carb 500 mg-vit K1 20 mcg tablet (Women's 50 Plus Multivitamin) nifedipine 30 mg tablet,extended 30 mg PO DAILY 01/26/25 01/26/25 01/25/25 History release sertraline 100 mg tablet 100 mg PO DAILY 01/26/25 01/26/25 01/25/25 History simvastatin 80 mg tablet 80 mg PO BEDTIME 01/26/25 01/26/25 01/25/25 History Physical Exam 2 Vital Signs: Vital Signs: Last Vital Signs Temp 98.3 F 01/27/25 12:00 Pulse 77 01/27/25 12:00 Resp 18 01/27/25 12:00 BP 163/68 H 01/27/25 12:00 Pulse Ox 97 01/27/25 12:00 O2 Del Method Nasal Cannula 01/27/25 12:00 O2 Flow Rate 2 01/27/25 12:00 BMI result Body Mass Index 23.2 Const: General: cooperative Orientation/consciousness: patient oriented x3 HEENT: Head: Yes normal to inspection, Yes normocephalic and Yes atraumatic Eyes: Conjunctivae: conjunctivae normal Neck: Neck: Yes normal visual inspection and Yes trachea midline Chest: Chest palpation & inspection: normal inspection of the chest Resp: Other: Nasal cannula GI: Inspection: Yes normal to inspection Neuro: General: patient oriented x3 Psych: Appearance: grossly normal Results Labs 01/27/25 07:17 01/27/25 07:17 Labs: Abnormal lab results 01/26/25 01/26/25 01/26/25 Range/Units 16:26 16:46 17:19 WBC 17.5 H (4.8-10.8) X10*3/uL Hct (37.0-47.0) % MCV 78.3 L (80.0-98.0) fL MCHC 36.0 H (31.0-35.0) g/dl Plt Count (160-400) X10*3/uL Immature Gran % (Auto) 0.6 H (0.0-0.4) % Neut % (Auto) 89.0 H (45-73) % Lymph % (Auto) 3.1 L (20-40) % Lymph # (Auto) 0.5 L (1.2-4.9) X10*3/uL [place] # (Auto) 1.3 H (0.1-1.2) X10*3/uL Abs Immat Gran (auto) 0.11 H (0.00-0.03) X10*3/uL Absolute Neuts (auto) 15.6 H (2.0-8.3) x10*3/uL PT 13.1 H (10.9-12.4) SEC Carbon Dioxide 20 L (22-29) mmol/L BUN 32 H (9-16) mg/dL POC Glucose (60-115) mg/dL Random Glucose 235 H (60-115) mg/dL Lactic Acid 2.7 H* (0.5-2.0) mmol/L Lactic Acid F/U @ 2Hr (0.5-2.0) mmol/L Total Bilirubin 1.3 H (0.0-1.0) mg/dL Troponin I High Sens 25.5 H (<3.5-17.0) ng/L B-Natriuretic Peptide 1041 H (<100) pg/mL Urine Protein 300 (3+) H (Neg-Trace) mg/dL Urine Glucose (UA) >=1000 H (Negative) mg/dL Urine Blood Small (1+) H (Negative) Urine Nitrite Positive H (Negative) Ur Leukocyte Esterase Moderate (2+) H (Negative) 01/26/25 01/26/25 01/26/25 Range/Units 19:11 19:46 23:07 WBC (4.8-10.8) X10*3/uL Hct (37.0-47.0) % MCV (80.0-98.0) fL MCHC (31.0-35.0) g/dl Plt Count (160-400) X10*3/uL Immature Gran % (Auto) (0.0-0.4) % Neut % (Auto) (45-73) % Lymph % (Auto) (20-40) % Lymph # (Auto) (1.2-4.9) X10*3/uL [place] # (Auto) (0.1-1.2) X10*3/uL Abs Immat Gran (auto) (0.00-0.03) X10*3/uL Absolute Neuts (auto) (2.0-8.3) x10*3/uL PT (10.9-12.4) SEC Carbon Dioxide (22-29) mmol/L BUN (9-16) mg/dL POC Glucose 257 H (60-115) mg/dL Random Glucose (60-115) mg/dL Lactic Acid (0.5-2.0) mmol/L Lactic Acid F/U @ 2Hr 2.1 H* (0.5-2.0) mmol/L Total Bilirubin (0.0-1.0) mg/dL Troponin I High Sens 47.7 H D (<3.5-17.0) ng/L B-Natriuretic Peptide (<100) pg/mL Urine Protein (Neg-Trace) mg/dL Urine Glucose (UA) (Negative) mg/dL Urine Blood (Negative) Urine Nitrite (Negative) Ur Leukocyte Esterase (Negative) 01/27/25 01/27/25 01/27/25 Range/Units 07:17 07:41 11:43 WBC (4.8-10.8) X10*3/uL Hct 34.8 L (37.0-47.0) % MCV (80.0-98.0) fL MCHC 35.1 H (31.0-35.0) g/dl Plt Count 145 L D (160-400) X10*3/uL Immature Gran % (Auto) (0.0-0.4) % Neut % (Auto) (45-73) % Lymph % (Auto) (20-40) % Lymph # (Auto) (1.2-4.9) X10*3/uL [place] # (Auto) (0.1-1.2) X10*3/uL Abs Immat Gran (auto) (0.00-0.03) X10*3/uL Absolute Neuts (auto) (2.0-8.3) x10*3/uL PT (10.9-12.4) SEC Carbon Dioxide (22-29) mmol/L BUN 27 H (9-16) mg/dL POC Glucose 182 H 168 H (60-115) mg/dL Random Glucose 176 H (60-115) mg/dL Lactic Acid (0.5-2.0) mmol/L Lactic Acid F/U @ 2Hr (0.5-2.0) mmol/L Total Bilirubin (0.0-1.0) mg/dL Troponin I High Sens (<3.5-17.0) ng/L B-Natriuretic Peptide (<100) pg/mL Urine Protein (Neg-Trace) mg/dL Urine Glucose (UA) (Negative) mg/dL Urine Blood (Negative) Urine Nitrite (Negative) Ur Leukocyte Esterase (Negative) Short CBC 01/26/25 01/27/25 Range/Units 16:26 07:17 WBC 17.5 H 10.7 (4.8-10.8) X10*3/uL Hgb 14.7 12.2 (12.0-16.0) g/dl Hct 40.8 34.8 L (37.0-47.0) % Plt Count 205 145 L D (160-400) X10*3/uL BMP 01/26/25 01/27/25 16:26 07:17 Sodium 136 138 Potassium 3.9 3.6 Chloride 102 104 Carbon Dioxide 20 L 24 BUN 32 H 27 H Creatinine 0.85 0.73 Calcium 10.1 8.9 D Liver Function 01/26/25 Range/Units 16:26 Total Bilirubin 1.3 H (0.0-1.0) mg/dL Direct Bilirubin 0.4 (0.0-0.5) mg/dL AST 26 (5-31) U/L ALT 13 (0-31) U/L Alkaline Phosphatase 74 (39-117) U/L Albumin 4.5 (3.5-5.0) g/dL Urine 01/26/25 Range/Units 17:19 Urine Color Yellow Urine Appearance Cloudy Urine pH 5.5 (5.0-9.0) Ur Specific [place] 1.025 (1.005-1.025) Urine Protein 300 (3+) H (Neg-Trace) mg/dL Urine Glucose (UA) >=1000 H (Negative) mg/dL Imaging Abdomen CT scan report/results: report reviewed and image reviewed CT scan - pelvis: report reviewed and image reviewed Additional studies: Date of Service: 01/26/25 CLINICAL HISTORY: diffuse abd pain and vomiting CT of the abdomen and pelvis without intravenous contrast. No comparison. Findings: The liver is unremarkable. The gallbladder is mildly distended without definite cholelithiasis or adjacent inflammatory change. There is right nephrolithiasis. There are at least 2 stones in the proximal right ureter measuring up to 9 mm with moderate hydronephrosis and ill-defined perinephric fluid. There is pancreatic atrophy. There is no abdominal aortic aneurysm. There is severe aortoiliac atherosclerosis with multifocal high-grade stenosis. No diverticulitis is identified. Normal appendix. No bowel obstruction. There is a punctate collection of gas in the bladder. There are calcified uterine fibroids. There is prominent septal thickening in the lower lungs. Impression: Proximal right ureteral stones with moderate hydronephrosis. Severe aortoiliac atherosclerosis. Prominent septal thickening in the lower lung suspicious for pulmonary edema. Punctate collection of gas in the bladder possibly iatrogenic correlate clinically. Other findings as above. Assessment and Plan (1) Acute pyelonephritis: Status: Acute (2) Ureteral stone with hydronephrosis: Status: Acute Plan NPO, russell, for right ureteral stent today Procedures Date of Service Date of Service: 01/27/25
[2025-01-27] MEDS: HYDROmorphone HCl 0.5 MG/0.5 ML SYRINGE IVPUSH (13:49)
[2025-01-27 16:15] LABS: Glucose, Whole Blood 134 mg/dL (60-115)
--- NOTE | 2025-01-27 17:29 | P.CONAN_ITS ---
HPI - Anesthesia Eval Consult details Narrative: Right ureter stone PMFSH Active Problems Active Problems: All Active Problems Ureteral stone with hydronephrosis (Acute) Mood disorder (Acute) Mixed hyperlipidemia (Acute) Hypertension (Acute) Non-insulin dependent type 2 diabetes mellitus (Acute) Congestive heart failure (Acute) Atrial fibrillation with RVR (Acute) Sepsis (Acute) Acute unilateral obstructive uropathy (Acute) Acute pyelonephritis (Acute) Past Medical History Medical History Mood disorder Mixed hyperlipidemia Hypertension Non-insulin dependent type 2 diabetes mellitus Family History Family history of problems with anesthesia: No Surgical History History of Problems with Anesthesia: No Social History Social History Household Members: None Housing: House Do you presently have visiting nurse or other home services: No Patient Tobacco Use Status: Never used Tobacco service: No Meds Allergies Allergy/AdvReac Type Severity Reaction Status Date / Time No Known Allergies Allergy Verified 01/26/25 16:32 Active Medications: Current Medications Acetaminophen (Acetaminophen 325 Mg Tablet) 650 mg PO Q6H PRN PRN Reason: Pain, Mild 1-3,fever,headache Atenolol (Atenolol 100 Mg Tablet) 100 mg PO DAILY [facility]A; Protocol Last Admin: 01/27/25 08:20 Dose: 100 mg Calcium Carbonate (Calcium Carbonate 750 Mg Tab.Chew) 750 mg PO Q4H PRN PRN Reason: Heartburn Ceftriaxone Sodium (Ceftriaxone Sodium 1 Gm Vial) 1 gm IVPUSH Q24H NATALIIA Dextrose (Dextrose 50 % 25 Gm/50 Ml Syringe) 25 gm IVPUSH Q15M PRN; Protocol PRN Reason: per Hypoglycemia Standing Ord. Diltiazem HCl (Diltiazem Hcl Cd 120 Mg Cap.Er.Deg) 120 mg PO DAILY NATALIIA; Protocol Last Admin: 01/27/25 12:24 Dose: 120 mg Glucose (Glucose Gel 15 Gm Gel..Gram.) 15 gm PO Q15M PRN; Protocol PRN Reason: per Hypoglycemia Standing Ord. Hydromorphone HCl (Hydromorphone Hcl 0.5 Mg/0.5 Ml Syringe) 0.5 mg IVPUSH Q4H PRN; Protocol PRN Reason: Pain, Severe (Pain Scale 7-10) Last Admin: 01/27/25 13:49 Dose: 0.5 mg Lactated Ringer's (Lr) 500 mls @ 20 mls/hr IVCONT .Q24H [facility] Insulin Human Lispro (Insulin Lispro 100 Unit/Ml 3 Ml Vial) 0 unit SUBCUT QIDACHS [facility]; Protocol Last Admin: 01/27/25 16:33 Dose: Not Given Lisinopril (Lisinopril 20 Mg Tablet) 60 mg PO DAILY [facility]; Protocol Magnesium Hydroxide (Milk Of Magnesia 30 Ml Oral.Susp) 30 ml PO DAILY PRN PRN Reason: Constipation Melatonin (Melatonin 3 Mg Tablet) 6 mg PO BEDTIME PRN PRN Reason: Insomnia Ondansetron HCl (Ondansetron Hcl 4 Mg/2 Ml Vial) 4 mg IVPUSH Q8H PRN PRN Reason: Nausea and Vomiting Sertraline HCl (Sertraline Hcl 100 Mg Tablet) 100 mg PO DAILY [facility] Last Admin: 01/27/25 11:17 Dose: 100 mg Sodium Chloride (0.9 % Sodium Chloride Flush 3 Ml Syringe) 3 ml IVFLUSH QSHIFT [facility] Last Admin: 01/27/25 08:19 Dose: 3 ml Home Medications ?Medication ?Instructions ?Recorded ?Confirmed ?Last Taken ?Type acetaminophen 325 mg tablet 325 mg PO Q4H PRN Pain 01/26/25 01/26/25 Unknown History (Tylenol) atenolol 100 mg tablet 100 mg PO DAILY 01/26/25 01/26/25 01/25/25 History calcium carbonate 500 mg PO DAILY 01/26/25 01/26/25 01/25/25 History glipizide 2.5 mg tablet, extended 2.5 mg PO DAILY 01/26/25 01/26/25 01/25/25 History release 24 hr lisinopril 40 mg tablet 60 mg PO DAILY 01/26/25 01/26/25 01/25/25 History metformin 500 mg tablet,extended 500 mg PO TID 01/26/25 01/26/25 01/25/25 History release 24 hr doyrwbfi-osl-hvkma ac 400 1 tab PO DAILY 01/26/25 01/26/25 01/25/25 History mcg-calcium carb 500 mg-vit K1 20 mcg tablet (Women's 50 Plus Multivitamin) nifedipine 30 mg tablet,extended 30 mg PO DAILY 01/26/25 01/26/25 01/25/25 History release sertraline 100 mg tablet 100 mg PO DAILY 01/26/25 01/26/25 01/25/25 History simvastatin 80 mg tablet 80 mg PO BEDTIME 01/26/25 01/26/25 01/25/25 History Exam Height,Weight and Vital Signs: Height 5 ft 1 in Weight 55.6 kg Last Vital Signs Temp 98.1 F 01/27/25 16:44 Pulse 69 01/27/25 16:44 Resp 18 01/27/25 16:44 BP 151/51 H 01/27/25 16:44 Pulse Ox 97 01/27/25 16:44 O2 Del Method Nasal Cannula 01/27/25 16:44 O2 Flow Rate 2 01/27/25 16:44 Pertinent Lab Results Pertinent Lab Results: Laboratory Tests 01/26/25 01/26/25 01/26/25 16:26 16:46 17:19 WBC 17.5 H RBC 5.21 Hgb 14.7 Hct 40.8 MCV 78.3 L MCH 28.2 MCHC 36.0 H RDW 13.8 Plt Count 205 MPV 9.9 Immature Gran % (Auto) 0.6 H Neut % (Auto) 89.0 H Lymph % (Auto) 3.1 L [place] % (Auto) 7.2 Eos % (Auto) 0.0 Baso % (Auto) 0.1 Lymph # (Auto) 0.5 L [place] # (Auto) 1.3 H Eos # (Auto) 0.0 Baso # (Auto) 0.0 Abs Immat Gran (auto) 0.11 H Absolute Neuts (auto) 15.6 H Absolute Nucleated RBC 0.000 Nucleated RBC % (auto) 0.0 PT 13.1 H INR 1.1 Hold Blue Top SEE NOTE Sodium 136 Potassium 3.9 Chloride 102 Carbon Dioxide 20 L Anion Gap 18 BUN 32 H Creatinine 0.85 Estim Creat Clear Calc 41.1 Estimated GFR > 60 POC Glucose Random Glucose 235 H Lactic Acid 2.7 H* Lactic Acid F/U @ 2Hr Lactic Acid F/U @ 4Hr Calcium 10.1 Total Bilirubin 1.3 H Direct Bilirubin 0.4 AST 26 ALT 13 Alkaline Phosphatase 74 Troponin I High Sens 25.5 H B-Natriuretic Peptide 1041 H Total Protein 7.9 Albumin 4.5 Lipase 15 TSH Urine Color Yellow Urine Appearance Cloudy Urine pH 5.5 Ur Specific [place] 1.025 Urine Protein 300 (3+) H Urine Glucose (UA) >=1000 H Urine Ketones 15 Urine Blood Small (1+) H Urine Nitrite Positive H Ur Leukocyte Esterase Moderate (2+) H Urine RBC 0-2 Urine WBC 6-10 Ur Squamous Epith Cells 0-2 Urine Bacteria 4+ Hyaline Casts 3-5 Influenza Type A (PCR) NEGATIVE Influenza Type B (PCR) NEGATIVE RSV RNA Qual (PCR) NEGATIVE SARS-CoV-2 RNA (RT-PCR) NEGATIVE 01/26/25 01/26/25 01/26/25 19:11 19:46 21:30 WBC RBC Hgb Hct MCV MCH MCHC RDW Plt Count MPV Immature Gran % (Auto) Neut % (Auto) Lymph % (Auto) [place] % (Auto) Eos % (Auto) Baso % (Auto) Lymph # (Auto) [place] # (Auto) Eos # (Auto) Baso # (Auto) Abs Immat Gran (auto) Absolute Neuts (auto) Absolute Nucleated RBC Nucleated RBC % (auto) PT INR Hold Blue Top Sodium Potassium Chloride Carbon Dioxide Anion Gap BUN Creatinine Estim Creat Clear Calc Estimated GFR POC Glucose Random Glucose Lactic Acid Lactic Acid F/U @ 2Hr 2.1 H* Lactic Acid F/U @ 4Hr 1.7 Calcium Total Bilirubin Direct Bilirubin AST ALT Alkaline Phosphatase Troponin I High Sens 47.7 H D B-Natriuretic Peptide Total Protein Albumin Lipase TSH Urine Color Urine Appearance Urine pH Ur Specific [place] Urine Protein Urine Glucose (UA) Urine Ketones Urine Blood Urine Nitrite Ur Leukocyte Esterase Urine RBC Urine WBC Ur Squamous Epith Cells Urine Bacteria Hyaline Casts Influenza Type A (PCR) Influenza Type B (PCR) RSV RNA Qual (PCR) SARS-CoV-2 RNA (RT-PCR) 01/26/25 01/27/25 01/27/25 23:07 07:17 07:41 WBC 10.7 RBC 4.33 Hgb 12.2 Hct 34.8 L MCV 80.4 MCH 28.2 MCHC 35.1 H RDW 13.7 Plt Count 145 L D MPV 10.5 Immature Gran % (Auto) Neut % (Auto) Lymph % (Auto) [place] % (Auto) Eos % (Auto) Baso % (Auto) Lymph # (Auto) [place] # (Auto) Eos # (Auto) Baso # (Auto) Abs Immat Gran (auto) Absolute Neuts (auto) Absolute Nucleated RBC 0.000 Nucleated RBC % (auto) 0.0 PT INR Hold Blue Top Sodium 138 Potassium 3.6 Chloride 104 Carbon Dioxide 24 Anion Gap 14 BUN 27 H Creatinine 0.73 Estim Creat Clear Calc 47.9 Estimated GFR > 60 POC Glucose 257 H 182 H Random Glucose 176 H Lactic Acid Lactic Acid F/U @ 2Hr Lactic Acid F/U @ 4Hr Calcium 8.9 D Total Bilirubin Direct Bilirubin AST ALT Alkaline Phosphatase Troponin I High Sens B-Natriuretic Peptide Total Protein Albumin Lipase TSH 0.57 Urine Color Urine Appearance Urine pH Ur Specific [place] Urine Protein Urine Glucose (UA) Urine Ketones Urine Blood Urine Nitrite Ur Leukocyte Esterase Urine RBC Urine WBC Ur Squamous Epith Cells Urine Bacteria Hyaline Casts Influenza Type A (PCR) Influenza Type B (PCR) RSV RNA Qual (PCR) SARS-CoV-2 RNA (RT-PCR) 01/27/25 01/27/25 11:43 16:02 WBC RBC Hgb Hct MCV MCH MCHC RDW Plt Count MPV Immature Gran % (Auto) Neut % (Auto) Lymph % (Auto) [place] % (Auto) Eos % (Auto) Baso % (Auto) Lymph # (Auto) [place] # (Auto) Eos # (Auto) Baso # (Auto) Abs Immat Gran (auto) Absolute Neuts (auto) Absolute Nucleated RBC Nucleated RBC % (auto) PT INR Hold Blue Top Sodium Potassium Chloride Carbon Dioxide Anion Gap BUN Creatinine Estim Creat Clear Calc Estimated GFR POC Glucose 168 H 134 H Random Glucose Lactic Acid Lactic Acid F/U @ 2Hr Lactic Acid F/U @ 4Hr Calcium Total Bilirubin Direct Bilirubin AST ALT Alkaline Phosphatase Troponin I High Sens B-Natriuretic Peptide Total Protein Albumin Lipase TSH Urine Color Urine Appearance Urine pH Ur Specific [place] Urine Protein Urine Glucose (UA) Urine Ketones Urine Blood Urine Nitrite Ur Leukocyte Esterase Urine RBC Urine WBC Ur Squamous Epith Cells Urine Bacteria Hyaline Casts Influenza Type A (PCR) Influenza Type B (PCR) RSV RNA Qual (PCR) SARS-CoV-2 RNA (RT-PCR) Airway Mallampati Class: II TM Dist: >3cm Neck ROM: Full Loose/Missing/Broken Teeth: No Heart: RRR Lungs: CTAB Assessment and Plan Assessment Anesthesia Assessment: Anesthesia Plan Discussed Final Anesthetic Review Family History of Problems with Anesthesia: No History of Problems with Anesthesia: No NPO: Yes ASA Class: III and Emergency Final Preanesthetic Review: No Changes in Pt Med Stat, Meds/Allgs Chart Revi ewed, Consent Obtained/Reviewed and Anes Risks/Benef Reviewed Patient Risk: Intermediate Procedure Risk: Low Anesthetic Plan Anesthetic Plan: GA Disposition: Standard PACU
[2025-01-27] MEDS: Lactated Ringers 1,000 ML 100 ML IVCONT (17:33)
[2025-01-27] MEDS: Gentamicin Sulfate 160 MG in 0.9 % Sodium Chloride 100 ML 100 MG IV (17:50)
--- NOTE | 2025-01-27 19:04 | P.OP_ITS ---
Operative Note Operative Note Date of Service: 01/27/25 Narrative: PreOperative Diagnosis:?? Right ureteral stones proximal ureter, right hydronephrosis Post Operative Diagnosis:?? Right ureteral proximal stone, right hydronephrosis, torturous ureter Procedure: - Cystoscopy, retrograde, ureteroscopy, -right ureteral stent insertion 6 [place] by 24 cm Surgeon:?Dr Valdemar Shah Anesthesia:? General Indications for procedure: Yumiko presented to the ED with right flank pain workup included CTAP noting a 2 to proximal ureteral stones with hydronephrosis perinephric stranding, urine and blood cultures g negative rods. The patient received ceftriaxone IV antibiotics Procedure: After informed consent was verified the patient was brought to the operating placed on the OR table in supine position.? General Anesthesia was administered per protocol.? The patient was placed in lithotomy position, prepped and draped in the usual sterile fashion.? Safety pause time-out and side of surgery confirmed.? Antibiotics confirmed. Gentamicin 160 mg. A 22 [place] cystoscope was inserted transurethrally, The bladder was visualized.? The bladder mucosa noted erythematous changes with cystitis cystitis follicularis. Both ureteric orifices were in normal position. The right ureteral orifice was cannulated with the open-ended ureteral catheter and the guidewire was passed up into the kidney the open-ended ureteral catheter was passed alongside the guidewire after removing the guidewire urine was sent for culture and a retrograde was done noting the dilated renal pelvis. The guidewire was replaced and on retracting the open-ended ureteral catheter the guidewire was of pulled out of position within the renal pelvis. Attempts to reposition the guidewire under fluoroscopy along side the [place] was not successful the tip of the guidewire curled on itself in the proximal ureter the rigid ureteroscope was then used along the guidewire up to the area where the there was the guidewire was meeting resistance it was noted that the ureter became torturous at this area and the entire ureter was noted to be edematous a flexible ureteroscope was then used along side the guidewire and was able to be manipulated beyond the tortuosity of the ureter into the renal pelvis the g uidewire was placed into position after removing the flexible ureteroscope the cystoscope was passed over the guidewire in a 6 6 [place] by 24 cm guidewire was placed under fluoroscopic guidance the cystoscope was removed a Ballesteros catheter was replaced into the bladder the patient was brought out of general extubated and taken to recovery in stable condition. Complications: None EBL: minimal (<5 mL) Drains: 6 [place] by 24 cm ureteral stent, 16 [place] Ballesteros catheter
[2025-01-27] MEDS: Acetaminophen 1,000 MG/100 ML PIGGYBACK 400 MG IV (19:42)
[2025-01-27 21:12] LABS: Glucose, Whole Blood 187 mg/dL (60-115)
[2025-01-28] VITALS (7 sets, daily range): BP systolic 135–175; BP diastolic 61–74; PULSE 66–75; RESP 17–24; TEMP 36.3–37.2; O2SAT 94–98
--- NOTE | 2025-01-28 07:37 | HO.POSTANES ---
Post Anesthesia Evaluation Post Anesthesia Evaluation Date of Service: 01/28/25 Vital Signs: Vital Signs Temp Pulse Resp BP Pulse Ox O2 Del Method O2 Flow Rate 01/28/25 03:35 97.8 F 70 18 138/62 97 Nasal Cannula 2 01/28/25 00:00 97.4 F 75 18 135/61 97 Nasal Cannula 4 01/27/25 21:03 97.8 F 80 18 155/69 H 96 Nasal Cannula 4 01/27/25 20:10 99 F 87 20 180/60 H 94 Nasal Cannula 3 01/27/25 19:55 99.3 F 87 20 183/64 H 94 Nasal Cannula 4 01/27/25 19:40 101.1 F H 88 22 H 173/74 H 92 Nasal Cannula 4 Anesthesia: General Mental Status: Awake Pain Control: Satisfactory Nausea/Vomiting: None Hydration: Adequate Anesthesia-Related Issues: No Anes. Related Issues
[2025-01-28 07:50] LABS: Glucose, Whole Blood 173 mg/dL (60-115)
[2025-01-28] MEDS: 0.9 % Sodium Chloride Flush 3 ML SYRINGE IVFLUSH ×3 (07:52→21:12)
[2025-01-28] MEDS: Insulin Lispro 100 UNIT/ML 3 ML VIAL SUBCUT ×3 (07:52→21:13)
[2025-01-28 08:29] LABS: Hematocrit 33.2 % (37.0-47.0); Hemoglobin 11.6 g/dl (12.0-16.0); Mean Corpuscular HGB Conc 34.9 g/dl (31.0-35.0); Mean Corpuscular Hemoglobin 27.8 pg (27.0-33.0); Mean Corpuscular Volume 79.6 fL (80.0-98.0); Mean Platelet Volume 10.7 fL (9.4-12.3); Platelet Count 169 X10*3/uL (160-400); Red Blood Count 4.17 X10*6/uL (4.20-5.50); Red Cell Distribution Width 13.8 % (11.0-16.0)
[2025-01-28 08:44] LABS: Anion Gap 13 (12-20); Blood Urea Nitrogen 27 mg/dL (9-16); Calcium 8.9 mg/dL (8.4-10.2); Carbon Dioxide 24 mmol/L (22-29); Chloride 102 mmol/L (96-108); Creatinine Clr Calc Pharmacy 47.9; Estimated Glomerular Filt Rate > 60; Glucose Random 181 mg/dL (60-115); Potassium 3.9 mmol/L (3.3-5.1); Sodium 135 mmol/L (135-145)
[2025-01-28] MEDS: lisinopriL 20 MG TABLET 60 MG PO (09:25)
[2025-01-28] MEDS: dilTIAZem HCL CD 120 MG CAP.ER.DEG PO (09:25)
[2025-01-28] MEDS: Sertraline HCL 100 MG TABLET PO (09:26)
[2025-01-28] MEDS: atenoloL 100 MG TABLET PO (09:26)
[2025-01-28] MEDS: cefTRIAXone sodium 1 GM VIAL IVPUSH (09:26)
[2025-01-28] MEDS: ondansetron HCL 4 MG/2 ML VIAL IVPUSH (10:41)
--- NOTE | 2025-01-28 10:55 | HO.PM.IMPN ---
Subjective Subjective Date of Service: 01/28/25 Interval History: feeling better Physical Exam Vital Signs: Vital Signs: Last Vital Signs Temp 99 F 01/28/25 08:00 Pulse 69 01/28/25 08:00 Resp 17 01/28/25 08:00 BP 158/72 H 01/28/25 09:25 Pulse Ox 98 01/28/25 08:00 O2 Del Method Nasal Cannula 01/28/25 08:00 O2 Flow Rate 2 01/28/25 08:00 BMI result Body Mass Index 23.2 Const: General: cooperative Orientation/consciousness: patient oriented x3 HEENT: Head: Yes normal to inspection, Yes normocephalic and Yes atraumatic Eyes: Conjunctivae: conjunctivae normal Neck: Neck: Yes normal visual inspection and Yes trachea midline Chest: Chest palpation & inspection: normal inspection of the chest Resp: Other: Nasal cannula GI: Inspection: Yes normal to inspection Neuro: General: patient oriented x3 Psych: Appearance: grossly normal Objective Data Active Medications Acetaminophen (Acetaminophen 325 Mg Tablet) 650 mg PO Q6H PRN PRN Reason: Pain, Mild 1-3,fever,headache Atenolol (Atenolol 100 Mg Tablet) 100 mg PO DAILY [facility]; Protocol Last Admin: 01/28/25 09:26 Dose: 100 mg Documented By: KEE Calcium Carbonate (Calcium Carbonate 750 Mg Tab.Chew) 750 mg PO Q4H PRN PRN Reason: Heartburn Ceftriaxone Sodium (Ceftriaxone Sodium 1 Gm Vial) 1 gm IVPUSH Q24H [facility] Last Admin: 01/28/25 09:26 Dose: 1 gm Documented By: KEE Dextrose (Dextrose 50 % 25 Gm/50 Ml Syringe) 25 gm IVPUSH Q15M PRN; Protocol PRN Reason: per Hypoglycemia Standing Ord. Diltiazem HCl (Diltiazem Hcl Cd 120 Mg Cap.Er.Deg) 120 mg PO DAILY [facility]; Protocol Last Admin: 01/28/25 09:25 Dose: 120 mg Documented By: KEE Glucose (Glucose Gel 15 Gm Gel..Gram.) 15 gm PO Q15M PRN; Protocol PRN Reason: per Hypoglycemia Standing Ord. Hydromorphone HCl (Hydromorphone Hcl 0.5 Mg/0.5 Ml Syringe) 0.5 mg IVPUSH Q4H PRN; Protocol PRN Reason: Pain, Severe (Pain Scale 7-10) Last Admin: 01/27/25 13:49 Dose: 0.5 mg Documented By: ZULEYKA Insulin Human Lispro (Insulin Lispro 100 Unit/Ml 3 Ml Vial) 0 unit SUBCUT QIDACHS [facility]; Protocol Last Admin: 01/28/25 07:52 Dose: 2 unit Documented By: KEE Lisinopril (Lisinopril 20 Mg Tablet) 60 mg PO DAILY [facility]; Protocol Last Admin: 01/28/25 09:25 Dose: 60 mg Documented By: KEE Magnesium Hydroxide (Milk Of Magnesia 30 Ml Oral.Susp) 30 ml PO DAILY PRN PRN Reason: Constipation Melatonin (Melatonin 3 Mg Tablet) 6 mg PO BEDTIME PRN PRN Reason: Insomnia Ondansetron HCl (Ondansetron Hcl 4 Mg/2 Ml Vial) 4 mg IVPUSH Q8H PRN PRN Reason: Nausea and Vomiting Last Admin: 01/28/25 10:41 Dose: 4 mg Documented By: KEE Sertraline HCl (Sertraline Hcl 100 Mg Tablet) 100 mg PO DAILY [facility] Last Admin: 01/28/25 09:26 Dose: 100 mg Documented By: KEE Sodium Chloride (0.9 % Sodium Chloride Flush 3 Ml Syringe) 3 ml IVFLUSH QSHIFT [facility] Last Admin: 01/28/25 07:52 Dose: 3 ml Documented By: KEE Labs 01/28/25 07:41 01/28/25 07:41 Labs: Laboratory Results - last 24 hr 01/27/25 01/27/25 01/27/25 11:43 16:02 21:06 MCV MCH MCHC RDW Plt Count MPV Absolute Nucleated RBC Nucleated RBC % (auto) Anion Gap Estim Creat Clear Calc Estimated GFR POC Glucose 168 H 134 H 187 H Random Glucose Calcium 01/28/25 01/28/25 07:41 07:45 MCV 79.6 L MCH 27.8 MCHC 34.9 RDW 13.8 Plt Count 169 MPV 10.7 Absolute Nucleated RBC 0.000 Nucleated RBC % (auto) 0.0 Anion Gap 13 Estim Creat Clear Calc 47.9 Estimated GFR > 60 POC Glucose 173 H Random Glucose 181 H Calcium 8.9 Microbiology Microbiology Results: Microbiology 01/26/25 16:30 Blood Culture - Preliminary Blood - Venous Gram negative hermelinda 01/26/25 16:26 Blood Culture - Preliminary Blood - Venous Gram negative hermelinda 01/26/25 Unknown Urine Culture - Preliminary Urine Catheterized - Ballesteros Catheter Culture too young to evaluate. Assessment and Plan (1) Atrial fibrillation with RVR: Status: Acute Plan 79F PMH dm, htn, mood disorder, hld presented with weaknness and right flank pain, found to have sepsis right obstructing stone, afib with rvr Sepsis due to right nephrolithiasis obstructing with hydronephrosis and acute pyelonephritis complicated by Gram-negative hermelinda bacteremia Continue ceftriaxone s/p cysto and stent 01/27/25 follow up cultures New onset AFib with RVR Continue atenolol, cardio following now in sinus acute hypoxic respiratory failure due to Acute on chronic diastolic CHF Improved with IV Lasix Diabetes with hyperglycemia Insulin sliding scale Hypertension Continue atenolol, lisinopril, nifedipine Mood disorder Sertraline DVT prophylaxis lovenox Full code reason for continued hospitalization: Septic Quality Stroke Does the patient have a stroke diagnosis?: No VTE Prior VTE?: No VTE Risk Level:: Medical - moderate - high VTE Device Contraindication: N/A - Device Ordered VTE Drug Contraindication: Treatment Not Indicated
[2025-01-28 11:25] LABS: Glucose, Whole Blood 172 mg/dL (60-115)
[2025-01-28] MEDS: bisacodyL 10 MG SUPP.RECT PR (11:59)
--- NOTE | 2025-01-28 12:02 | PM.PNCARD ---
Subjective Subjective Date of Service: 01/28/25 Interval history: Patient states that she feels well. She has got no cardiac complaints. No angina or shortness of breath or palpitations or in fact anything else of that type. Review of Systems Review of Systems Yes all other systems are reviewed and are negative Constitutional: Reports as per HPI and Reports no additional constitutional complaints Eyes: Reports as per HPI and Denies no additional eye complaints Denies system reviewed and no additional complaints, except as documented and Reports as per HPI Cardiovascular: Reports as per HPI, Reports no additional cardiovascular complaints, Denies acrocyanosis, Denies cool extremities, Denies chest pain, Denies leg edema, Denies lightheadedness, Denies palpitations and Denies dyspnea Respiratory: Reports as per HPI, Denies no additional respiratory complaints and Denies dyspnea Gastrointestinal: Reports as per HPI and Denies no additional gastrointestinal complaints Genitourinary: Reports as per HPI Musculoskeletal: Reports no additional musculoskeletal complaints and Reports as per HPI Skin/Breast: Reports system reviewed and no additional complaints, except as docu Reports system reviewed and no additional complaints, except as documented and Reports as per HPI Psychiatric: Reports no additional psychiatric complaints and Reports as per HPI Endocrine: Reports no additional endocrine complaints, Reports as per HPI and Denies palpitations Hematologic/Lymphatic: Reports no additional hematologic/lymphatic complaints and Reports as per HPI Allergic/Immunologic: Reports no additional allergic/immunologic complaints and Reports as per HPI Physical Exam Vital Signs: Last Vital Signs Temp 99 F 01/28/25 08:00 Pulse 69 01/28/25 08:00 Resp 17 01/28/25 08:00 BP 158/72 H 01/28/25 09:25 Pulse Ox 98 01/28/25 08:00 O2 Del Method Nasal Cannula 01/28/25 08:00 O2 Flow Rate 2 01/28/25 08:00 BMI result Body Mass Index 23.2 Const General: comfortable and no acute distress Orientation/consciousness: patient oriented x3 HEENT Other: Unremarkable Head: Yes normal to inspection Neck Neck: Yes normal visual inspection Chest Chest palpation & inspection: normal inspection of the chest Resp Auscultation: clear to auscultation bilaterally Cardio Palpation: normal PMI Heart sounds: S1 normal heart sound present, S2 normal heart sound present, no gallops, no murmurs and no rubs GI Palpation (GI): Soft to palpation Back/Spine/Pelvis Other: unremarkable Skin General skin exam: no rashes or lesions noted Neuro General: patient oriented x3 Extrem General: Yes normal to inspection Psych Mental Status: mental status grossly normal Objective Labs and Meds 01/28/25 07:41 01/28/25 07:41 Lab results: Laboratory Results - last 24 hr 01/27/25 01/27/25 01/28/25 16:02 21:06 07:41 WBC 10.0 RBC 4.17 L Hgb 11.6 L Hct 33.2 L MCV 79.6 L MCH 27.8 MCHC 34.9 RDW 13.8 Plt Count 169 MPV 10.7 Absolute Nucleated RBC 0.000 Nucleated RBC % (auto) 0.0 Sodium 135 Potassium 3.9 Chloride 102 Carbon Dioxide 24 Anion Gap 13 BUN 27 H Creatinine 0.73 Estim Creat Clear Calc 47.9 Estimated GFR > 60 POC Glucose 134 H 187 H Random Glucose 181 H Calcium 8.9 01/28/25 01/28/25 07:45 11:20 WBC RBC Hgb Hct MCV MCH MCHC RDW Plt Count MPV Absolute Nucleated RBC Nucleated RBC % (auto) Sodium Potassium Chloride Carbon Dioxide Anion Gap BUN Creatinine Estim Creat Clear Calc Estimated GFR POC Glucose 173 H 172 H Random Glucose Calcium Imaging Radiologist's impression: Impressions Guidance Fluoroscopy 01/27/25 17:50 IMPRESSION: Fluoroscopy during procedure. Please see procedure report for additional information. Electronically signed by: Edgar Ayala MD 01/28/2025 07:12 AM EDT RP Progress Note: A&P Assessment and plan (1) Atrial fibrillation with RVR: Status: Acute (2) Congestive heart failure: Status: Acute (3) Sepsis: Status: Acute (4) Acute pyelonephritis: Status: Acute Plan Cardiac BNP level 1041. High sensitivity troponin levels are 25 and 47. In the echocardiogram, LVEF 54%. Moderate diastolic dysfunction. Moderate mitral annular calcification with mild regurgitation. [id number] tricuspid regurgitation moderate pulmonary hypertension. CT chest reported interstitial pulmonary edema. However, in the chest x-ray prior to that, no mention of pulmonary edema. It seems that she has had atrial fibrillation upon arrival but that seems to be resolved. She is in sinus rhythm. Keep her on home dose of beta-case. May switch nifedipine to diltiazem. Hold off anticoagulation for now as it seems to be an isolated episode in the setting of acute medical issue. CT findings as above but she has got clinically no heart failure. We can use diuretics as necessary. Echo findings may be related to chronic poorly controlled hypertension. Meds for that we will need to be optimized in due course. Discussed with son at the bedside. Time Spent With Patient Time: Total time managing care of this patient today ____ minutes. Progress Note: Quality Stroke Does the patient have a stroke diagnosis?: No Procedures Date of Service Date of Service: 01/28/25
--- NOTE | 2025-01-28 13:04 | MHC.CM.PN ---
Per rounds, pt. is not yet ready to DC, she requires post procedure and cardiac monitoring. CM to follow for DC needs.
[2025-01-28] MEDS: HYDROmorphone HCl 0.5 MG/0.5 ML SYRINGE IVPUSH ×2 (15:02→21:12)
[2025-01-28 16:27] LABS: Glucose, Whole Blood 249 mg/dL (60-115)
--- NOTE | 2025-01-28 17:12 | PC.NURSE ---
MD notified of elevated BP, nausea and abdominal pain. No vomiting. Medicated with ondansetron with continued pain and nausea. Last BM 01/24. Order for suppository given as ordered. Patient had small unformed brown BM.
[2025-01-28] MEDS: cloNIDine HCL 0.1 MG TABLET PO (17:37)
[2025-01-28 20:52] LABS: Glucose, Whole Blood 159 mg/dL (60-115)
[2025-01-29] VITALS: BP 139/65; PULSE 68; RESP 18; TEMP 36.2; O2SAT 97
[2025-01-29] MEDS: HYDROmorphone HCl 0.5 MG/0.5 ML SYRINGE IVPUSH ×2 (01:08→12:19)
[2025-01-29 04:00] VITALS: BP 152/70; PULSE 67; RESP 18; TEMP 36.3; O2SAT 95
[2025-01-29 07:06] VITALS: BP 142/99; PULSE 111; RESP 20; TEMP 37.2; O2SAT 98
[2025-01-29 07:18] LABS: Glucose, Whole Blood 161 mg/dL (60-115)
[2025-01-29 07:45] LABS: Hematocrit 32.8 % (37.0-47.0); Hemoglobin 11.1 g/dl (12.0-16.0); Mean Corpuscular HGB Conc 33.8 g/dl (31.0-35.0); Mean Corpuscular Hemoglobin 27.7 pg (27.0-33.0); Mean Corpuscular Volume 81.8 fL (80.0-98.0); Mean Platelet Volume 10.2 fL (9.4-12.3); Platelet Count 194 X10*3/uL (160-400); Red Blood Count 4.01 X10*6/uL (4.20-5.50); Red Cell Distribution Width 13.7 % (11.0-16.0); White Blood Count 8.1 X10*3/uL (4.8-10.8)
[2025-01-29 07:59] LABS: Anion Gap 16 (12-20); Blood Urea Nitrogen 27 mg/dL (9-16); Calcium 9.1 mg/dL (8.4-10.2); Carbon Dioxide 24 mmol/L (22-29); Chloride 103 mmol/L (96-108); Estimated Glomerular Filt Rate > 60; Glucose Random 142 mg/dL (60-115); Magnesium 2.1 mg/dL (1.6-2.6); Potassium 3.7 mmol/L (3.3-5.1); Sodium 139 mmol/L (135-145)
[2025-01-29] MEDS: Insulin Lispro 100 UNIT/ML 3 ML VIAL SUBCUT ×4 (08:24→21:47)
[2025-01-29] MEDS: cefTRIAXone sodium 1 GM VIAL IVPUSH (08:25)
[2025-01-29] MEDS: dilTIAZem HCL CD 120 MG CAP.ER.DEG PO (08:25)
[2025-01-29] MEDS: Sertraline HCL 100 MG TABLET PO (08:25)
[2025-01-29] MEDS: lisinopriL 20 MG TABLET 60 MG PO (08:25)
[2025-01-29] MEDS: Enoxaparin Sodium 40 MG/0.4 ML SYRINGE SUBCUT (08:25)
[2025-01-29] MEDS: atenoloL 100 MG TABLET PO (08:25)
[2025-01-29] MEDS: 0.9 % Sodium Chloride Flush 3 ML SYRINGE IVFLUSH ×2 (08:26→17:34)
--- NOTE | 2025-01-29 10:27 | P.PNIM_ITS ---
Subjective Subjective Date of Service: 01/29/25 Interval History: back into AFib this morning Physical Exam 2 Vital Signs: Vital Signs: Last Vital Signs Temp 98.9 F 01/29/25 07:06 Pulse 111 H 01/29/25 07:06 Resp 20 01/29/25 07:06 BP 142/99 H 01/29/25 07:06 Pulse Ox 98 01/29/25 07:06 O2 Del Method Nasal Cannula 01/29/25 07:06 O2 Flow Rate 2 01/29/25 07:06 BMI result Body Mass Index 23.2 General: AO X 3, no acute distress, frail appearing Resp: Diminished bilateral, no accessory muscles used CVS: S1,S2, rapid irregular GI: soft, non tender, non distended Neuro: motor grossly intact, alert Psych: appropriate affect, appropriate insight Objective Data Active Medications Acetaminophen (Acetaminophen 325 Mg Tablet) 650 mg PO Q6H PRN PRN Reason: Pain, Mild 1-3,fever,headache Apixaban (Apixaban 5 Mg Tablet) 5 mg PO BID [facility] Atenolol (Atenolol 100 Mg Tablet) 100 mg PO DAILY [facility]; Protocol Last Admin: 01/29/25 08:25 Dose: 100 mg Documented By: LUIS Calcium Carbonate (Calcium Carbonate 750 Mg Tab.Chew) 750 mg PO Q4H PRN PRN Reason: Heartburn Ceftriaxone Sodium (Ceftriaxone Sodium 1 Gm Vial) 1 gm IVPUSH Q24H [facility] Last Admin: 01/29/25 08:25 Dose: 1 gm Documented By: LUIS Dextrose (Dextrose 50 % 25 Gm/50 Ml Syringe) 25 gm IVPUSH Q15M PRN; Protocol PRN Reason: per Hypoglycemia Standing Ord. Diltiazem HCl (Diltiazem Hcl Cd 120 Mg Cap.Er.Deg) 120 mg PO DAILY [facility]; Protocol Last Admin: 01/29/25 08:25 Dose: 120 mg Documented By: LUIS Glucose (Glucose Gel 15 Gm Gel..Gram.) 15 gm PO Q15M PRN; Protocol PRN Reason: per Hypoglycemia Standing Ord. Hydromorphone HCl (Hydromorphone Hcl 0.5 Mg/0.5 Ml Syringe) 0.5 mg IVPUSH Q4H PRN; Protocol PRN Reason: Pain, Severe (Pain Scale 7-10) Last Admin: 01/29/25 01:08 Dose: 0.5 mg Documented By: JEANA Insulin Human Lispro (Insulin Lispro 100 Unit/Ml 3 Ml Vial) 0 unit SUBCUT QIDACHS [facility]; Protocol Last Admin: 01/29/25 08:24 Dose: 2 unit Documented By: LUIS Lisinopril (Lisinopril 20 Mg Tablet) 60 mg PO DAILY [facility]; Protocol Last Admin: 01/29/25 08:25 Dose: 60 mg Documented By: LUIS Magnesium Hydroxide (Milk Of Magnesia 30 Ml Oral.Susp) 30 ml PO DAILY PRN PRN Reason: Constipation Melatonin (Melatonin 3 Mg Tablet) 6 mg PO BEDTIME PRN PRN Reason: Insomnia Ondansetron HCl (Ondansetron Hcl 4 Mg/2 Ml Vial) 4 mg IVPUSH Q8H PRN PRN Reason: Nausea and Vomiting Last Admin: 01/28/25 10:41 Dose: 4 mg Documented By: KEE Sertraline HCl (Sertraline Hcl 100 Mg Tablet) 100 mg PO DAILY [facility] Last Admin: 01/29/25 08:25 Dose: 100 mg Documented By: LUIS Sodium Chloride (0.9 % Sodium Chloride Flush 3 Ml Syringe) 3 ml IVFLUSH QSHIFT [facility] Last Admin: 01/29/25 08:26 Dose: 3 ml Documented By: LUIS Labs 01/29/25 06:23 01/29/25 06:23 Labs: Laboratory Results - last 24 hr 01/28/25 01/28/25 01/28/25 11:20 16:22 20:48 MCV MCH MCHC RDW Plt Count MPV Absolute Nucleated RBC Nucleated RBC % (auto) Anion Gap Estim Creat Clear Calc Estimated GFR POC Glucose 172 H 249 H 159 H Random Glucose Calcium Magnesium 01/29/25 01/29/25 06:23 07:14 MCV 81.8 MCH 27.7 MCHC 33.8 RDW 13.7 Plt Count 194 MPV 10.2 Absolute Nucleated RBC 0.000 Nucleated RBC % (auto) 0.0 Anion Gap 16 Estim Creat Clear Calc 50.0 Estimated GFR > 60 POC Glucose 161 H Random Glucose 142 H Calcium 9.1 Magnesium 2.1 Microbiology Microbiology Results: Microbiology 01/27/25 18:05 Urine Culture - Final Urine Other - Kidney Right No growth. 01/26/25 16:30 Blood Culture - Final Blood - Venous Escherichia coli 01/26/25 16:26 Blood Culture - Final Blood - Venous Escherichia coli 01/26/25 Unknown Urine Culture - Final Urine Catheterized - Ballesteros Catheter Assessment and Plan (1) Atrial fibrillation with RVR: Status: Acute Plan 79F PMH dm, htn, mood disorder, hld presented with weaknness and right flank pain, found to have sepsis right obstructing stone, afib with rvr Sepsis due to right nephrolithiasis obstructing with hydronephrosis and acute pyelonephritis complicated by ecoli bacteremia Continue ceftriaxone s/p cysto and stent 01/27/25 New onset AFib with RVR Continue atenolol, Cardizem cardio appreciated now that has recurred will start apixaban acute hypoxic respiratory failure due to Acute on chronic diastolic CHF Improved with IV Lasix Diabetes with hyperglycemia Insulin sliding scale Hypertension Continue atenolol, lisinopril, nifedipine Mood disorder Sertraline DVT prophylaxis apixaban Full code reason for continued hospitalization: Septic Quality Stroke Does the patient have a stroke diagnosis?: No VTE Prior VTE?: No VTE Risk Level:: Medical - moderate - high VTE Device Contraindication: N/A - Device Ordered VTE Drug Contraindication: Treatment Not Indicated
--- NOTE | 2025-01-29 11:39 | PM.PNCARD ---
Subjective Subjective Date of Service: 01/29/25 Interval history: Feels weak but otherwise okay. She does not have any active cardiac complaints. This morning, she went back into atrial fibrillation. Review of Systems Review of Systems Yes all other systems are reviewed and are negative Constitutional: Reports as per HPI and Reports no additional constitutional complaints Eyes: Reports as per HPI and Denies no additional eye complaints Denies system reviewed and no additional complaints, except as documented and Reports as per HPI Cardiovascular: Reports as per HPI, Reports no additional cardiovascular complaints, Denies acrocyanosis, Denies cool extremities, Denies chest pain, Denies leg edema, Denies lightheadedness, Denies palpitations and Denies dyspnea Respiratory: Reports as per HPI, Denies no additional respiratory complaints and Denies dyspnea Gastrointestinal: Reports as per HPI and Denies no additional gastrointestinal complaints Genitourinary: Reports as per HPI Musculoskeletal: Reports no additional musculoskeletal complaints and Reports as per HPI Skin/Breast: Reports system reviewed and no additional complaints, except as docu Reports system reviewed and no additional complaints, except as documented and Reports as per HPI Psychiatric: Reports no additional psychiatric complaints and Reports as per HPI Endocrine: Reports no additional endocrine complaints, Reports as per HPI and Denies palpitations Hematologic/Lymphatic: Reports no additional hematologic/lymphatic complaints and Reports as per HPI Allergic/Immunologic: Reports no additional allergic/immunologic complaints and Reports as per HPI Physical Exam Vital Signs: Last Vital Signs Temp 98.9 F 01/29/25 07:06 Pulse 111 H 01/29/25 07:06 Resp 20 01/29/25 07:06 BP 142/99 H 01/29/25 07:06 Pulse Ox 98 01/29/25 07:06 O2 Del Method Nasal Cannula 01/29/25 07:06 O2 Flow Rate 2 01/29/25 07:06 BMI result Body Mass Index 23.2 Const General: comfortable and no acute distress Orientation/consciousness: patient oriented x3 HEENT Other: Unremarkable Head: Yes normal to inspection Neck Neck: Yes normal visual inspection Chest Chest palpation & inspection: normal inspection of the chest Resp Auscultation: clear to auscultation bilaterally Cardio Palpation: normal PMI Heart sounds: S1 normal heart sound present, S2 normal heart sound present, no gallops, no murmurs and no rubs GI Palpation (GI): Soft to palpation Back/Spine/Pelvis Other: unremarkable Skin General skin exam: no rashes or lesions noted Neuro General: patient oriented x3 Extrem General: Yes normal to inspection Psych Mental Status: mental status grossly normal Objective Labs and Meds 01/29/25 06:23 01/29/25 06:23 Lab results: Laboratory Results - last 24 hr 01/28/25 01/28/25 01/29/25 16:22 20:48 06:23 WBC 8.1 RBC 4.01 L Hgb 11.1 L Hct 32.8 L MCV 81.8 MCH 27.7 MCHC 33.8 RDW 13.7 Plt Count 194 MPV 10.2 Absolute Nucleated RBC 0.000 Nucleated RBC % (auto) 0.0 Sodium 139 Potassium 3.7 Chloride 103 Carbon Dioxide 24 Anion Gap 16 BUN 27 H Creatinine 0.70 Estim Creat Clear Calc 50.0 Estimated GFR > 60 POC Glucose 249 H 159 H Random Glucose 142 H Calcium 9.1 Magnesium 2.1 01/29/25 07:14 WBC RBC Hgb Hct MCV MCH MCHC RDW Plt Count MPV Absolute Nucleated RBC Nucleated RBC % (auto) Sodium Potassium Chloride Carbon Dioxide Anion Gap BUN Creatinine Estim Creat Clear Calc Estimated GFR POC Glucose 161 H Random Glucose Calcium Magnesium Progress Note: A&P Assessment and plan (1) Atrial fibrillation with RVR: Status: Acute (2) Congestive heart failure: Status: Acute (3) Sepsis: Status: Acute (4) Acute pyelonephritis: Status: Acute Plan Overall, atrial fibrillation episodes in the setting of acute illness but it seems to be recurrent. She initially had atrial fibrillation that resolved but she is back in atrial fibrillation this morning. For medications, she is on atenolol at home. Diltiazem has been added this morning. We can also try amiodarone to see if he will convert back to sinus rhythm. As it has been only a few hours, amiodarone acceptable. She needs anticoagulation. Already started Eliquis. Echo findings reviewed and seem to be from poorly controlled hypertension. We will follow up with you. Time Spent With Patient Time: Total time managing care of this patient today ____ minutes. Progress Note: Quality Stroke Does the patient have a stroke diagnosis?: No Procedures Date of Service Date of Service: 01/29/25
[2025-01-29 12:00] VITALS: BP 160/71; PULSE 106; RESP 18; TEMP 35.9; O2SAT 91
[2025-01-29 12:11] LABS: Glucose, Whole Blood 183 mg/dL (60-115)
[2025-01-29] MEDS: Apixaban 5 MG TABLET PO (12:19)
[2025-01-29] MEDS: Amiodarone HCL 200 MG TABLET 400 MG PO ×2 (12:19→20:01)
[2025-01-29 15:56] LABS: Glucose, Whole Blood 187 mg/dL (60-115)
[2025-01-29 16:00] VITALS: BP 123/66; PULSE 105; RESP 18; TEMP 35.9; O2SAT 95
[2025-01-29 20:00] VITALS: BP 162/83; PULSE 124; RESP 18; TEMP 36.7; O2SAT 97
[2025-01-29] MEDS: Phenazopyridine HCL 100 MG TABLET PO (20:01)
[2025-01-29] MEDS: Acetaminophen 325 MG TABLET 650 MG PO (20:03)
[2025-01-29 21:25] LABS: Glucose, Whole Blood 160 mg/dL (60-115)
[2025-01-30] VITALS (11 sets, daily range): BP systolic 102–165; BP diastolic 62–89; PULSE 101–150; RESP 16–20; TEMP 36–36.8; O2SAT 96–98
[2025-01-30] MEDS: Metoprolol Tartrate 5 MG/5 ML VIAL IVPUSH ×2 (04:51→22:40)
[2025-01-30] MEDS: 0.9 % Sodium Chloride Flush 3 ML SYRINGE IVFLUSH ×4 (04:53→21:00)
[2025-01-30] MEDS: dilTIAZem HCL CD 120 MG CAP.ER.DEG PO (06:27)
[2025-01-30] MEDS: HYDROmorphone HCl 0.5 MG/0.5 ML SYRINGE IVPUSH (06:27)
[2025-01-30 07:33] LABS: Hematocrit 36.2 % (37.0-47.0); Hemoglobin 12.3 g/dl (12.0-16.0); Mean Corpuscular Hemoglobin 27.3 pg (27.0-33.0); Mean Corpuscular Volume 80.4 fL (80.0-98.0); Platelet Count 243 X10*3/uL (160-400); Red Cell Distribution Width 13.4 % (11.0-16.0); White Blood Count 7.1 X10*3/uL (4.8-10.8)
[2025-01-30 07:51] LABS: Anion Gap 17 (12-20); Blood Urea Nitrogen 21 mg/dL (9-16); Calcium 9.3 mg/dL (8.4-10.2); Carbon Dioxide 24 mmol/L (22-29); Chloride 103 mmol/L (96-108); Creatinine Clr Calc Pharmacy 53.8; Estimated Glomerular Filt Rate > 60; Glucose Random 179 mg/dL (60-115); Potassium 3.5 mmol/L (3.3-5.1); Sodium 140 mmol/L (135-145)
[2025-01-30] MEDS: cefTRIAXone sodium 1 GM VIAL IVPUSH (08:06)
[2025-01-30] MEDS: Amiodarone HCL 200 MG TABLET 400 MG PO ×2 (08:06→21:00)
[2025-01-30] MEDS: lisinopriL 20 MG TABLET 60 MG PO (08:07)
[2025-01-30] MEDS: atenoloL 100 MG TABLET PO (08:08)
[2025-01-30] MEDS: Sertraline HCL 100 MG TABLET PO (08:08)
[2025-01-30] MEDS: Insulin Lispro 100 UNIT/ML 3 ML VIAL SUBCUT ×4 (08:19→21:00)
[2025-01-30 08:21] LABS: Glucose, Whole Blood 211 mg/dL (60-115)
[2025-01-30] MEDS: Apixaban 5 MG TABLET PO ×2 (08:30→21:00)
--- NOTE | 2025-01-30 09:18 | P.PNIM_ITS ---
Subjective Subjective Date of Service: 01/30/25 Interval History: had brief hematuira, resolved, still in rvr Physical Exam 2 Vital Signs: Vital Signs: Last Vital Signs Temp 96.8 F 01/30/25 07:57 Pulse 149 H 01/30/25 07:57 Resp 20 01/30/25 07:57 BP 102/76 01/30/25 07:57 Pulse Ox 98 01/30/25 07:57 O2 Del Method Nasal Cannula 01/30/25 07:57 O2 Flow Rate 2 01/30/25 07:57 BMI result Body Mass Index 23.2 Const: General: comfortable and no acute distress O rientation/consciousness: patient oriented x3 HEENT: Other: Unremarkable Head: Yes normal to inspection Neck: Neck: Yes normal visual inspection Chest: Chest palpation & inspection: normal inspection of the chest Resp: Auscultation: clear to auscultation bilaterally Cardio: Palpation: normal PMI Heart sounds: S1 normal heart sound present, S2 normal heart sound present, no gallops, no murmurs and no rubs GI: Palpation (GI): Soft to palpation Back/Spine/Pelvis: Other: unremarkable Skin: General skin exam: no rashes or lesions noted Neuro: General: patient oriented x3 Extrem: General: Yes normal to inspection Psych: Mental Status: mental status grossly normal Objective Data Active Medications Acetaminophen (Acetaminophen 325 Mg Tablet) 650 mg PO Q6H PRN PRN Reason: Pain, Mild 1-3,fever,headache Last Admin: 01/29/25 20:03 Dose: 650 mg Documented By: FELICIA Amiodarone HCl (Amiodarone Hcl 200 Mg Tablet) 400 mg PO BID [facility] Last Admin: 01/30/25 08:06 Dose: 400 mg Documented By: ZULEYKA Apixaban (Apixaban 5 Mg Tablet) 5 mg PO BID [facility] Last Admin: 01/29/25 20:00 Dose: Not Given Documented By: FELICIA Non-Admin Reason: Physician Held Med Atenolol (Atenolol 100 Mg Tablet) 100 mg PO DAILY [facility]; Protocol Last Admin: 01/30/25 08:08 Dose: 100 mg Documented By: ZULEYKA Calcium Carbonate (Calcium Carbonate 750 Mg Tab.Chew) 750 mg PO Q4H PRN PRN Reason: Heartburn Ceftriaxone Sodium (Ceftriaxone Sodium 1 Gm Vial) 1 gm IVPUSH Q24H [facility] Last Admin: 01/30/25 08:06 Dose: 1 gm Documented By: ZULEYKA Dextrose (Dextrose 50 % 25 Gm/50 Ml Syringe) 25 gm IVPUSH Q15M PRN; Protocol PRN Reason: per Hypoglycemia Standing Ord. Diltiazem HCl (Diltiazem Hcl Cd 120 Mg Cap.Er.Deg) 120 mg PO DAILY [facility]; Protocol Last Admin: 01/30/25 06:27 Dose: 120 mg Documented By: FELICIA Comments: given early per Glucose (Glucose Gel 15 Gm Gel..Gram.) 15 gm PO Q15M PRN; Protocol PRN Reason: per Hypoglycemia Standing Ord. Hydromorphone HCl (Hydromorphone Hcl 0.5 Mg/0.5 Ml Syringe) 0.5 mg IVPUSH Q4H PRN; Protocol PRN Reason: Pain, Severe (Pain Scale 7-10) Last Admin: 01/30/25 06:27 Dose: 0.5 mg Documented By: FELICIA Insulin Human Lispro (Insulin Lispro 100 Unit/Ml 3 Ml Vial) 0 unit SUBCUT QIDACHS [facility]; Protocol Last Admin: 01/30/25 08:19 Dose: 4 unit Documented By: ZULEYKA Lisinopril (Lisinopril 20 Mg Tablet) 60 mg PO DAILY [facility]; Protocol Last Admin: 01/30/25 08:07 Dose: 60 mg Documented By: ZULEYKA Magnesium Hydroxide (Milk Of Magnesia 30 Ml Oral.Susp) 30 ml PO DAILY PRN PRN Reason: Constipation Melatonin (Melatonin 3 Mg Tablet) 6 mg PO BEDTIME PRN PRN Reason: Insomnia Metoprolol Tartrate (Metoprolol Tartrate 5 Mg/5 Ml Vial) 5 mg IVPUSH Q6H PRN; Protocol PRN Reason: Heart Rate >100 Last Admin: 01/30/25 04:51 Dose: 5 mg Documented By: FELICIA Ondansetron HCl (Ondansetron Hcl 4 Mg/2 Ml Vial) 4 mg IVPUSH Q8H PRN PRN Reason: Nausea and Vomiting Last Admin: 01/28/25 10:41 Dose: 4 mg Documented By: KEE Sertraline HCl (Sertraline Hcl 100 Mg Tablet) 100 mg PO DAILY [facility] Last Admin: 01/30/25 08:08 Dose: 100 mg Documented By: ZULEYKA Sodium Chloride (0.9 % Sodium Chloride Flush 3 Ml Syringe) 3 ml IVFLUSH QSHIFT [facility] Last Admin: 01/30/25 06:28 Dose: 3 ml Documented By: FELICIA Labs 01/30/25 06:42 01/30/25 06:42 Labs: Laboratory Results - last 24 hr 01/29/25 01/29/25 01/29/25 12:02 15:51 21:12 MCV MCH MCHC RDW Plt Count MPV Absolute Nucleated RBC Nucleated RBC % (auto) Anion Gap Estim Creat Clear Calc Estimated GFR POC Glucose 183 H 187 H 160 H Random Glucose Calcium 01/30/25 01/30/25 06:42 08:18 MCV 80.4 MCH 27.3 MCHC 34.0 RDW 13.4 Plt Count 243 D MPV 10.0 Absolute Nucleated RBC 0.000 Nucleated RBC % (auto) 0.0 Anion Gap 17 Estim Creat Clear Calc 53.8 Estimated GFR > 60 POC Glucose 211 H Random Glucose 179 H Calcium 9.3 Microbiology Microbiology Results: Microbiology 01/27/25 18:05 Urine Culture - Final Urine Other - Kidney Right No growth. 01/26/25 16:30 Blood Culture - Final Blood - Venous Escherichia coli 01/26/25 16:26 Blood Culture - Final Blood - Venous Escherichia coli Assessment and Plan (1) Atrial fibrillation with RVR: Status: Acute Plan 79F PMH dm, htn, mood disorder, hld presented with weaknness and right flank pain, found to have sepsis right obstructing stone, afib with rvr Sepsis due to right nephrolithiasis obstructing with hydronephrosis and acute pyelonephritis complicated by ecoli bacteremia Continue ceftriaxone s/p cysto and stent 01/27/25 New onset AFib with RVR atenololo, cardize, amio, apixaban acute hypoxic respiratory failure due to Acute on chronic diastolic CHF Improved with IV Lasix Diabetes with hyperglycemia Insulin sliding scale Hypertension Continue atenolol, lisinopril, nifedipine Mood disorder Sertraline DVT prophylaxis apixaban Full code reason for continued hospitalization: rvr Quality Stroke Does the patient have a stroke diagnosis?: No VTE Prior VTE?: No VTE Risk Level:: Medical - moderate - high VTE Device Contraindication: N/A - Device Ordered VTE Drug Contraindication: Treatment Not Indicated
--- NOTE | 2025-01-30 11:12 | PM.PNCARD ---
Subjective Subjective Date of Service: 01/30/25 Interval history: She seems weak and deconditioned. No overt cardiac symptoms but she seems to be mostly in bed. Review of Systems Review of Systems Yes all other systems are reviewed and are negative Constitutional: Reports as per HPI and Reports no additional constitutional complaints Eyes: Reports as per HPI and Denies no additional eye complaints Denies system reviewed and no additional complaints, except as documented and Reports as per HPI Cardiovascular: Reports as per HPI, Reports no additional cardiovascular complaints, Denies acrocyanosis, Denies cool extremities, Denies chest pain, Denies leg edema, Denies lightheadedness, Denies palpitations and Denies dyspnea Respiratory: Reports as per HPI, Denies no additional respiratory complaints and Denies dyspnea Gastrointestinal: Reports as per HPI and Denies no additional gastrointestinal complaints Musculoskeletal: Reports no additional musculoskeletal complaints and Reports as per HPI Skin/Breast: Reports system reviewed and no additional complaints, except as docu Reports system reviewed and no additional complaints, except as documented and Reports as per HPI Psychiatric: Reports no additional psychiatric complaints and Reports as per HPI Endocrine: Reports no additional endocrine complaints, Reports as per HPI and Denies palpitations Hematologic/Lymphatic: Reports no additional hematologic/lymphatic complaints and Reports as per HPI Allergic/Immunologic: Reports no additional allergic/immunologic complaints and Reports as per HPI Physical Exam Vital Signs: Last Vital Signs Temp 96.8 F 01/30/25 07:57 Pulse 149 H 01/30/25 07:57 Resp 20 01/30/25 07:57 BP 102/76 01/30/25 07:57 Pulse Ox 98 01/30/25 07:57 O2 Del Method Nasal Cannula 01/30/25 07:57 O2 Flow Rate 2 01/30/25 07:57 BMI result Body Mass Index 23.2 Const General: comfortable and no acute distress Orientation/consciousness: patient oriented x3 HEENT Other: Unremarkable Head: Yes normal to inspection Neck Neck: Yes normal visual inspection Chest Chest palpation & inspection: normal inspection of the chest Resp Auscultation: clear to auscultation bilaterally Cardio Palpation: normal PMI Heart sounds: S1 normal heart sound present, S2 normal heart sound present, no gallops, no murmurs and no rubs GI Palpation (GI): Soft to palpation Back/Spine/Pelvis Other: unremarkable Skin General skin exam: no rashes or lesions noted Neuro General: patient oriented x3 Extrem General: Yes normal to inspection Psych Mental Status: mental status grossly normal Objective Labs and Meds 01/30/25 06:42 01/30/25 06:42 Lab results: Laboratory Results - last 24 hr 01/29/25 01/29/25 01/29/25 12:02 15:51 21:12 WBC RBC Hgb Hct MCV MCH MCHC RDW Plt Count MPV Absolute Nucleated RBC Nucleated RBC % (auto) Sodium Potassium Chloride Carbon Dioxide Anion Gap BUN Creatinine Estim Creat Clear Calc Estimated GFR POC Glucose 183 H 187 H 160 H Random Glucose Calcium 01/30/25 01/30/25 06:42 08:18 WBC 7.1 RBC 4.50 Hgb 12.3 Hct 36.2 L MCV 80.4 MCH 27.3 MCHC 34.0 RDW 13.4 Plt Count 243 D MPV 10.0 Absolute Nucleated RBC 0.000 Nucleated RBC % (auto) 0.0 Sodium 140 Potassium 3.5 Chloride 103 Carbon Dioxide 24 Anion Gap 17 BUN 21 H Creatinine 0.65 Estim Creat Clear Calc 53.8 Estimated GFR > 60 POC Glucose 211 H Random Glucose 179 H Calcium 9.3 Progress Note: A&P Assessment and plan (1) Atrial fibrillation with RVR: Status: Acute (2) Congestive heart failure: Status: Acute (3) Sepsis: Status: Acute (4) Acute pyelonephritis: Status: Acute Plan Overall, mainly came for urological issues and in that setting, developed initially transient atrial fibrillation, converted to sinus and then reverted back to atrial fibrillation and staying in atrial fibrillation. For medications, she is on atenolol 100 mg at home. Diltiazem has been added in the hospital. She also got amiodarone yesterday. We can try that another day to see if she converts back to sinus or not. If not, then we will have to stop it and just keep her on rate control only. In that case, may just add digoxin or just up titrate other medications. Continue anticoagulation with Eliquis. There is a question of hypoxia this morning and if she does have some crackles on exam. Hence consider getting a chest x-ray to see if there is any heart failure component. If so, we will need IV diuretics. Otherwise, overall trend is hypertension, but today, blood pressure seems to be okay. We will follow up with you. Discussed with Dr. Mccray. Time Spent With Patient Time: Total time managing care of this patient today ____ minutes. Progress Note: Quality Stroke Does the patient have a stroke diagnosis?: No Procedures Date of Service Date of Service: 01/30/25
[2025-01-30 11:58] LABS: Glucose, Whole Blood 178 mg/dL (60-115)
[2025-01-30 16:49] LABS: Glucose, Whole Blood 158 mg/dL (60-115)
[2025-01-30] MEDS: Furosemide 40 MG/4 ML VIAL IVPUSH (17:39)
[2025-01-30] MEDS: Phenazopyridine HCL 100 MG TABLET PO (18:11)
[2025-01-30] MEDS: HYDROmorphone HCl 2 MG TABLET 1 MG PO (18:11)
[2025-01-30 20:53] LABS: Glucose, Whole Blood 216 mg/dL (60-115)
[2025-01-31] VITALS (10 sets, daily range): BP systolic 132–170; BP diastolic 62–101; PULSE 74–126; RESP 16–18; TEMP 36.1–37.6; O2SAT 95–99
[2025-01-31] MEDS: dilTIAZem HCL 50 MG/10 ML VIAL IVPUSH (00:58)
[2025-01-31] MEDS: Acetaminophen 325 MG TABLET 650 MG PO (01:19)
[2025-01-31] MEDS: dilTIAZem HCL 125 MG in 0.9 % Sodium Chloride 100 ML IVCONT (03:59)
[2025-01-31] MEDS: Calcium Carbonate 750 MG TAB.CHEW PO (05:41)
--- NOTE | 2025-01-31 05:41 | ECG_ITS ---
Test Reason : RHYTHM Blood Pressure : */* mmHG Vent. Rate : 118 BPM Atrial Rate : * BPM P-R Int : * ms QRS Dur : 94 ms QT Int : 322 ms P-R-T Axes : * -2 98 degrees QTcB Int : 451 ms Atrial fibrillation with rapid ventricular response Abnormal QRS-T angle, consider primary T wave abnormality Abnormal ECG When compared with ECG of 26-Jan-2025 18:50, Vent. rate has decreased by [address] no longer depressed in Lateral leads T wave inversion no longer evident in Lateral leads Referred By: Moustapha Downing Electronically Signed By: PHOEBE ROLLE MD
--- NOTE | 2025-01-31 05:42 | ECG_ITS ---
Test Reason : RHYTHM Blood Pressure : */* mmHG Vent. Rate : 106 BPM Atrial Rate : 326 BPM P-R Int : * ms QRS Dur : 98 ms QT Int : 368 ms P-R-T Axes : 93 -2 80 degrees QTcB Int : 488 ms Atrial flutter with variable A-V block Abnormal ECG When compared with ECG of 31-Jan-2025 05:41, Atrial flutter has replaced Atrial fibrillation Referred By: Moustapha Downing Electronically Signed By: PHOEBE ROLLE MD
--- NOTE | 2025-01-31 06:08 | PM.EVENT ---
Event Note Date of Service: 01/31/25 Event Note: AFib with RVR: Patient's heart rate has been fluctuating. Patient went into AF with RVR with heart rate in 120s to 130s over the night. Given IV metoprolol with no significant improvement. For OB given IV diltiazem bolus is slight improvement in the heart rate. Followed by patient was started on diltiazem drip. Patient also reported heartburn-added Pepcid. EKG nonischemic Will obtain troponins Will pass on to the hospitalist Time Spent With Patient Time: Total time managing care of this patient today ____ minutes.
[2025-01-31 07:07] LABS: Hemoglobin 13.3 g/dl (12.0-16.0); Mean Corpuscular HGB Conc 34.1 g/dl (31.0-35.0); Mean Corpuscular Hemoglobin 27.2 pg (27.0-33.0); Mean Corpuscular Volume 79.8 fL (80.0-98.0); Mean Platelet Volume 9.5 fL (9.4-12.3); Platelet Count 268 X10*3/uL (160-400); Red Blood Count 4.89 X10*6/uL (4.20-5.50); Red Cell Distribution Width 13.3 % (11.0-16.0); White Blood Count 7.8 X10*3/uL (4.8-10.8)
[2025-01-31 07:15] LABS: Anion Gap 15 (12-20); Blood Urea Nitrogen 23 mg/dL (9-16); Calcium 9.4 mg/dL (8.4-10.2); Carbon Dioxide 26 mmol/L (22-29); Chloride 101 mmol/L (96-108); Creatinine Clr Calc Pharmacy 53.8; Estimated Glomerular Filt Rate > 60; Glucose Random 188 mg/dL (60-115); Potassium 3.4 mmol/L (3.3-5.1); Sodium 139 mmol/L (135-145)
[2025-01-31 07:18] LABS: Glucose, Whole Blood 184 mg/dL (60-115)
[2025-01-31 07:24] LABS: Troponin-I High Sensitivity 13.1 ng/L (<3.5-17.0)
[2025-01-31] MEDS: Insulin Lispro 100 UNIT/ML 3 ML VIAL SUBCUT ×3 (07:49→18:02)
[2025-01-31] MEDS: Amiodarone HCL 200 MG TABLET 400 MG PO (08:55)
[2025-01-31] MEDS: lisinopriL 20 MG TABLET 60 MG PO (08:55)
[2025-01-31] MEDS: Apixaban 5 MG TABLET PO ×2 (08:56→19:59)
[2025-01-31] MEDS: atenoloL 100 MG TABLET PO (08:56)
[2025-01-31] MEDS: Furosemide 40 MG/4 ML VIAL IVPUSH (08:56)
[2025-01-31] MEDS: Sertraline HCL 100 MG TABLET PO (08:56)
[2025-01-31] MEDS: dilTIAZem HCL CD 120 MG CAP.ER.DEG PO ×2 (08:56→19:59)
[2025-01-31] MEDS: cefTRIAXone sodium 1 GM VIAL IVPUSH (08:57)
--- NOTE | 2025-01-31 09:31 | P.PNIM_ITS ---
Subjective Subjective Date of Service: 01/31/25 Interval History: started on dilt drip overnight for rvr in 150s Physical Exam 2 Vital Signs: Vital Signs: Last Vital Signs Temp 97.1 F 01/31/25 08:00 Pulse 112 H 01/31/25 08:00 Resp 17 01/31/25 08:00 BP 146/69 H 01/31/25 08:00 Pulse Ox 98 01/31/25 08:00 O2 Del Method Nasal Cannula 01/31/25 08:00 O2 Flow Rate 1 01/31/25 08:00 BMI result Body Mass Index 23.2 Const: General: comfortable and no acute distress O rientation/consciousness: patient oriented x3 HEENT: Other: Unremarkable Head: Yes normal to inspection Neck: Neck: Yes normal visual inspection Chest: Chest palpation & inspection: normal inspection of the chest Resp: Auscultation: clear to auscultation bilaterally Cardio: Palpation: normal PMI Heart sounds: S1 normal heart sound present, S2 normal heart sound present, no gallops, no murmurs and no rubs GI: Palpation (GI): Soft to palpation Back/Spine/Pelvis: Other: unremarkable Skin: General skin exam: no rashes or lesions noted Neuro: General: patient oriented x3 Extrem: General: Yes normal to inspection Psych: Mental Status: mental status grossly normal Objective Data Active Medications Acetaminophen (Acetaminophen 325 Mg Tablet) 650 mg PO Q6H PRN PRN Reason: Pain, Mild 1-3,fever,headache Last Admin: 01/31/25 01:19 Dose: 650 mg Documented By: JOHNNA Amiodarone HCl (Amiodarone Hcl 200 Mg Tablet) 400 mg PO BID [facility] Last Admin: 01/31/25 08:55 Dose: 400 mg Documented By: KEE Apixaban (Apixaban 5 Mg Tablet) 5 mg PO BID [facility] Last Admin: 01/31/25 08:56 Dose: 5 mg Documented By: KEE Atenolol (Atenolol 100 Mg Tablet) 100 mg PO DAILY [facility]; Protocol Last Admin: 01/31/25 08:56 Dose: 100 mg Documented By: KEE Calcium Carbonate (Calcium Carbonate 750 Mg Tab.Chew) 750 mg PO Q4H PRN PRN Reason: Heartburn Last Admin: 01/31/25 05:41 Dose: 750 mg Documented By: JOHNNA Ceftriaxone Sodium (Ceftriaxone Sodium 1 Gm Vial) 1 gm IVPUSH Q24H [facility] Last Admin: 01/31/25 08:57 Dose: 1 gm Documented By: KEE Dextrose (Dextrose 50 % 25 Gm/50 Ml Syringe) 25 gm IVPUSH Q15M PRN; Protocol PRN Reason: per Hypoglycemia Standing Ord. Diltiazem HCl (Diltiazem Hcl Cd 120 Mg Cap.Er.Deg) 120 mg PO DAILY [facility]; Protocol Last Admin: 01/31/25 08:56 Dose: 120 mg Documented By: KEE Furosemide (Furosemide 40 Mg Tablet) 40 mg PO DAILY [facility]; Protocol Glucose (Glucose Gel 15 Gm Gel..Gram.) 15 gm PO Q15M PRN; Protocol PRN Reason: per Hypoglycemia Standing Ord. Hydromorphone HCl (Hydromorphone Hcl 0.5 Mg/0.5 Ml Syringe) 0.5 mg IVPUSH Q4H PRN; Protocol PRN Reason: Pain, Severe (Pain Scale 7-10) Last Admin: 01/30/25 06:27 Dose: 0.5 mg Documented By: FELICIA Diltiazem HCl 125 mg/ Sodium (Chloride) 125 mls @ 0 mls/hr IVCONT .Q0M [facility]; Protocol Last Titration: 01/31/25 05:43 Dose: 10 mg/hr, 10 mls/hr Documented By: JOHNNA Insulin Human Lispro (Insulin Lispro 100 Unit/Ml 3 Ml Vial) 0 unit SUBCUT QIDACHS [facility]; Protocol Last Admin: 01/31/25 07:49 Dose: 2 unit Documented By: KEE Lisinopril (Lisinopril 20 Mg Tablet) 60 mg PO DAILY [facility]; Protocol Last Admin: 01/31/25 08:55 Dose: 60 mg Documented By: KEE Magnesium Hydroxide (Milk Of Magnesia 30 Ml Oral.Susp) 30 ml PO DAILY PRN PRN Reason: Constipation Melatonin (Melatonin 3 Mg Tablet) 6 mg PO BEDTIME PRN PRN Reason: Insomnia Metoprolol Tartrate (Metoprolol Tartrate 5 Mg/5 Ml Vial) 5 mg IVPUSH Q6H PRN; Protocol PRN Reason: Heart Rate >100 Last Admin: 01/30/25 22:40 Dose: 5 mg Documented By: JOHNNA Ondansetron HCl (Ondansetron Hcl 4 Mg/2 Ml Vial) 4 mg IVPUSH Q8H PRN PRN Reason: Nausea and Vomiting Last Admin: 01/28/25 10:41 Dose: 4 mg Documented By: KEE Sertraline HCl (Sertraline Hcl 100 Mg Tablet) 100 mg PO DAILY [facility] Last Admin: 01/31/25 08:56 Dose: 100 mg Documented By: KEE Sodium Chloride (0.9 % Sodium Chloride Flush 3 Ml Syringe) 3 ml IVFLUSH QSHIFT [facility] Last Admin: 01/31/25 07:54 Dose: Not Given Documented By: KEE Non-Admin Reason: IV Running Labs 01/31/25 06:49 01/31/25 06:49 Labs: Laboratory Results - last 24 hr 01/30/25 01/30/25 01/30/25 11:51 16:39 20:49 MCV MCH MCHC RDW Plt Count MPV Absolute Nucleated RBC Nucleated RBC % (auto) Anion Gap Estim Creat Clear Calc Estimated GFR POC Glucose 178 H 158 H 216 H Random Glucose Calcium 01/31/25 01/31/25 06:49 07:09 MCV 79.8 L MCH 27.2 MCHC 34.1 RDW 13.3 Plt Count 268 MPV 9.5 Absolute Nucleated RBC 0.000 Nucleated RBC % (auto) 0.0 Anion Gap 15 Estim Creat Clear Calc 53.8 Estimated GFR > 60 POC Glucose 184 H Random Glucose 188 H Calcium 9.4 Assessment and Plan (1) Atrial fibrillation with RVR: Status: Acute Plan 79F PMH dm, htn, mood disorder, hld presented with weaknness and right flank pain, found to have sepsis right obstructing stone, afib with rvr Sepsis due to right nephrolithiasis obstructing with hydronephrosis and acute pyelonephritis complicated by ecoli bacteremia Continue ceftriaxone s/p cysto and stent 01/27/25 New onset AFib with RVR atenololol, cardizem po and continuous infusion, amio does not seem to be helping will dc, apixaban acute hypoxic respiratory failure due to Acute on chronic diastolic CHF Improved with IV Lasix, change to po wean o2 Diabetes with hyperglycemia Insulin sliding scale Hypertension Continue atenolol, lisinopril, nifedipine Mood disorder Sertraline DVT prophylaxis apixaban Full code reason for continued hospitalization: rvr Quality Stroke Does the patient have a stroke diagnosis?: No VTE Prior VTE?: No VTE Risk Level:: Medical - moderate - high VTE Device Contraindication: N/A - Device Ordered VTE Drug Contraindication: Treatment Not Indicated
--- NOTE | 2025-01-31 10:40 | PM.PNCARD ---
Subjective Subjective Date of Service: 01/31/25 Principal diagnosis: atrial fibrillation Interval history: patient developed rapid heart rate yesterday up to 130-140 beats per minute. Says felt some palpitations. This morning he is not feeling palpitation but remains in atrial fibrillation with heart rate of 100-110 on Cardizem drip. Was started on Cardizem drip last night. Still getting p.o. atenolol and Cardizem. Denies any anxiety. Denies any chest pain or shortness of breath. Overall otherwise asymptomatic. Review of Systems Constitutional: Reports other ( Anxious) Eyes: Reports no additional eye complaints Cardiovascular: Denies chest pain, Denies leg edema, Denies lightheadedness, Reports palpitations and Denies dyspnea Respiratory: Reports no additional respiratory complaints and Denies dyspnea Gastrointestinal: Reports no additional gastrointestinal complaints Skin/Breast: Reports system reviewed and no additional complaints, except as docu Psychiatric: Reports no additional psychiatric complaints Endocrine: Reports palpitations Allergic/Immunologic: Reports no additional allergic/immunologic complaints Physical Exam Vital Signs: Last Vital Signs Temp 97.1 F 01/31/25 08:00 Pulse 112 H 01/31/25 08:00 Resp 17 01/31/25 08:00 BP 146/69 H 01/31/25 08:00 Pulse Ox 98 01/31/25 08:00 O2 Del Method Nasal Cannula 01/31/25 08:00 O2 Flow Rate 1 01/31/25 08:00 BMI result Body Mass Index 23.2 Const General: cooperative, comfortable, alert, awake and anxious Nutritional Appearance: thin Orientation/consciousness: patient oriented x3 Neck Neck: Yes trachea midline, Yes supple and Yes no JVD Resp Effort & Inspection: normal respiratory effort Auscultation: clear to auscultation bilaterally Cardio Jugular venous distension: no JVD Rate: tachycardic Rhythm: abnormal rhythm irregularly irregular Heart sounds: S1 normal heart sound present, S2 normal heart sound present, no click, no gallops and no murmurs GI Auscultation: normal bowel sounds Skin General skin exam: no rashes or lesions noted Neuro General: patient oriented x3 and no focal motor deficits Extrem General: Yes no clubbing, cyanosis or edema Objective Labs and Meds 01/31/25 06:49 01/31/25 06:49 Lab results: Laboratory Results - last 24 hr 01/30/25 01/30/2525 11:51 16:39 20:49 WBC RBC Hgb Hct MCV MCH MCHC RDW Plt Count MPV Absolute Nucleated RBC Nucleated RBC % (auto) Sodium Potassium Chloride Carbon Dioxide Anion Gap BUN Creatinine Estim Creat Clear Calc Estimated GFR POC Glucose 178 H 158 H 216 H Random Glucose Calcium Troponin I High Sens 01/31/25 01/31/25 06:49 07:09 WBC 7.8 RBC 4.89 Hgb 13.3 Hct 39.0 MCV 79.8 L MCH 27.2 MCHC 34.1 RDW 13.3 Plt Count 268 MPV 9.5 Absolute Nucleated RBC 0.000 Nucleated RBC % (auto) 0.0 Sodium 139 Potassium 3.4 Chloride 101 Carbon Dioxide 26 Anion Gap 15 BUN 23 H Creatinine 0.65 Estim Creat Clear Calc 53.8 Estimated GFR > 60 POC Glucose 184 H Random Glucose 188 H Calcium 9.4 Troponin I High Sens 13.1 D Progress Note: A&P Assessment and plan (1) Atrial fibrillation with RVR: Status: Acute Assessment and Plan: atrial fibrillation with rapid ventricular response in this elderly woman admitted with ureteral stone with pyonephrosis and bacteremia related to E coli. Patient developed acute atrial fibrillation. Clinically appears mildly short of breath but not overtly in significant congestive heart failure. Would at this point time agree with rate control. Would add Cardizem CD 120 mg at nighttime and atenolol 50 mg at nighttime in addition to her morning dose. Continue Cardizem drip for now. Continue gentle diuresis. Obtain echocardiogram to evaluate LV systolic and diastolic function to evaluate filling pressures. Continue full oral anticoagulation as planned if there no surgical interventions planned. Continue Eliquis 5 mg b.i.d.. Will follow with you Time Spent With Patient Time: Total time managing care of this patient today ____ minutes. Progress Note: Quality Stroke Does the patient have a stroke diagnosis?: No Procedures Date of Service Date of Service: 01/31/25
[2025-01-31] MEDS: Potassium Chloride ER 20 MEQ TAB.ER.PRT 40 MEQ PO (10:45)
[2025-01-31 12:00] LABS: Glucose, Whole Blood 239 mg/dL (60-115)
--- NOTE | 2025-01-31 12:26 | MHC.CM.PN ---
Per rounds, pt is still acute, DCP: home, either self care or with services. CM to follow.
[2025-01-31] MEDS: HYDROmorphone HCl 0.5 MG/0.5 ML SYRINGE IVPUSH (14:06)
[2025-01-31 16:18] LABS: Glucose, Whole Blood 190 mg/dL (60-115)
[2025-01-31] MEDS: 0.9 % Sodium Chloride Flush 3 ML SYRINGE IVFLUSH ×2 (18:02→19:59)
[2025-01-31] MEDS: atenoloL 50 MG TABLET PO (19:59)
[2025-01-31 21:04] LABS: Glucose, Whole Blood 208 mg/dL (60-115)
[2025-02-01] VITALS (8 sets, daily range): BP systolic 126–172; BP diastolic 59–86; PULSE 85–135; RESP 17–20; TEMP 36.1–36.7; O2SAT 84–100
[2025-02-01] MEDS: Insulin Lispro 100 UNIT/ML 3 ML VIAL SUBCUT ×5 (00:18→21:26)
[2025-02-01 06:59] LABS: Glucose, Whole Blood 185 mg/dL (60-115)
[2025-02-01 07:32] LABS: Hematocrit 37.2 % (37.0-47.0); Hemoglobin 12.9 g/dl (12.0-16.0); Mean Corpuscular HGB Conc 34.7 g/dl (31.0-35.0); Mean Corpuscular Hemoglobin 27.7 pg (27.0-33.0); Mean Corpuscular Volume 79.8 fL (80.0-98.0); Mean Platelet Volume 9.9 fL (9.4-12.3); Platelet Count 301 X10*3/uL (160-400); Red Blood Count 4.66 X10*6/uL (4.20-5.50); Red Cell Distribution Width 13.4 % (11.0-16.0); White Blood Count 9.5 X10*3/uL (4.8-10.8)
[2025-02-01 07:52] LABS: Alanine Aminotransferase 14 U/L (0-31); Albumin Level 3.2 g/dL (3.5-5.0); Alkaline Phosphatase 123 U/L (39-117); Anion Gap 16 (12-20); Aspartate Amino Transferase 15 U/L (5-31); Bilirubin Direct 0.2 mg/dL (0.0-0.5); Bilirubin Total 0.4 mg/dL (0.0-1.0); Blood Urea Nitrogen 24 mg/dL (9-16); Calcium 9.1 mg/dL (8.4-10.2); Carbon Dioxide 28 mmol/L (22-29); Chloride 98 mmol/L (96-108); Creatinine Clr Calc Pharmacy 50.7; Estimated Glomerular Filt Rate > 60; Glucose Random 180 mg/dL (60-115); Magnesium 1.5 mg/dL (1.6-2.6); Potassium 3.7 mmol/L (3.3-5.1); Sodium 138 mmol/L (135-145); Total Protein 6.5 g/dL (6.5-8.0)
[2025-02-01] MEDS: cefTRIAXone sodium 1 GM VIAL IVPUSH (09:47)
[2025-02-01] MEDS: 0.9 % Sodium Chloride Flush 3 ML SYRINGE IVFLUSH ×3 (09:47→23:37)
[2025-02-01] MEDS: Sertraline HCL 100 MG TABLET PO (09:48)
[2025-02-01] MEDS: Furosemide 40 MG TABLET PO (09:48)
[2025-02-01] MEDS: Apixaban 5 MG TABLET PO ×2 (09:48→20:28)
[2025-02-01] MEDS: dilTIAZem HCL CD 120 MG CAP.ER.DEG PO ×2 (09:48→20:28)
[2025-02-01] MEDS: lisinopriL 20 MG TABLET 60 MG PO (09:48)
[2025-02-01] MEDS: atenoloL 100 MG TABLET PO (09:49)
[2025-02-01] MEDS: Digoxin 0.5 MG/2 ML AMPUL 0.25 MG IVPUSH ×3 (09:55→20:25)
--- NOTE | 2025-02-01 10:13 | PM.PNCARD ---
Subjective Subjective Date of Service: 02/01/25 Principal diagnosis: atrial fibrillation Interval history: Patient denies any symptoms. Remains rapid with heart rate with heart rate up in the 30s despite increasing medication. Blood pressure is elevated. Somewhat anxious to go home. Denies any shortness of breath. Says not been able to walk, currently on fall precautions. Review of Systems Constitutional: Reports weakness Eyes: Reports no additional eye complaints Cardiovascular: Reports no additional cardiovascular complaints Respiratory: Reports no additional respiratory complaints Gastrointestinal: Reports no additional gastrointestinal complaints Genitourinary: Reports no additional female genitourinary complaints Musculoskeletal: Reports no additional musculoskeletal complaints Reports weakness Physical Exam Vital Signs: Last Vital Signs Temp 98.0 F 02/01/25 07:09 Pulse 105 H 02/01/25 07:09 Resp 20 02/01/25 07:09 BP 150/86 H 02/01/25 07:09 Pulse Ox 100 02/01/25 07:09 O2 Del Method Nasal Cannula 02/01/25 07:09 O2 Flow Rate 1 02/01/25 07:09 BMI result Body Mass Index 23.2 Const General: cooperative, comfortable, alert, awake and anxious Nutritional Appearance: thin Orientation/consciousness: patient oriented x3 Neck Neck: Yes trachea midline, Yes supple and Yes no JVD Resp Effort & Inspection: normal respiratory effort Auscultation: clear to auscultation bilaterally Cardio Jugular venous distension: no JVD Rate: tachycardic Rhythm: abnormal rhythm irregularly irregular Heart sounds: S1 normal heart sound present, S2 normal heart sound present, no click, no gallops and no murmurs GI Auscultation: normal bowel sounds Skin General skin exam: no rashes or lesions noted Neuro General: patient oriented x3 and no focal motor deficits Extrem General: Yes no clubbing, cyanosis or edema Objective Labs and Meds 02/01/25 06:36 02/01/25 06:36 Lab results: Laboratory Results - last 24 hr 01/31/25 01/31/25 01/31/25 11:42 15:56 20:55 WBC RBC Hgb Hct MCV MCH MCHC RDW Plt Count MPV Absolute Nucleated RBC Nucleated RBC % (auto) Sodium Potassium Chloride Carbon Dioxide Anion Gap BUN Creatinine Estim Creat Clear Calc Estimated GFR POC Glucose 239 H 190 H 208 H Random Glucose Calcium Magnesium Total Bilirubin Direct Bilirubin AST ALT Alkaline Phosphatase Total Protein Albumin 02/01/25 02/01/25 06:36 06:51 WBC 9.5 RBC 4.66 Hgb 12.9 Hct 37.2 MCV 79.8 L MCH 27.7 MCHC 34.7 RDW 13.4 Plt Count 301 MPV 9.9 Absolute Nucleated RBC 0.000 Nucleated RBC % (auto) 0.0 Sodium 138 Potassium 3.7 Chloride 98 Carbon Dioxide 28 Anion Gap 16 BUN 24 H Creatinine 0.69 Estim Creat Clear Calc 50.7 Estimated GFR > 60 POC Glucose 185 H Random Glucose 180 H Calcium 9.1 Magnesium 1.5 L Total Bilirubin 0.4 Direct Bilirubin 0.2 AST 15 ALT 14 Alkaline Phosphatase 123 H Total Protein 6.5 Albumin 3.2 L Progress Note: A&P Assessment and plan (1) Atrial fibrillation with RVR: Status: Acute Assessment and Plan: Atrial fibrillation with difficult control rate could be related to anxiety. Will increase atenolol to 100 mg b.i.d. and continue Cardizem at current dose and continue IV Cardizem and digitalize at 0.25 mg IV push q.6 hours x3 doses. Continue monitor full disclosure cardiac telemetry. Blood pressure is adequately controlled at this point time. Continue full oral anticoagulation. (2) Congestive heart failure: Status: Acute Assessment and Plan: Heart failure has diuresed well overnight. Clinically appears to be euvolemic well compensated with no heart failure symptoms. Consider physical therapy consult to ambulate. Out of bed to chair. Incentive spirometry. Continue aggressive blood pressure control. Can consider addition of spironolactone for blood pressure as well as heart failure. Will continue to follow with you Time Spent With Patient Time: Total time managing care of this patient today ____ minutes. Progress Note: Quality Stroke Does the patient have a stroke diagnosis?: No Procedures Date of Service Date of Service: 02/01/25
--- NOTE | 2025-02-01 10:32 | HO.PM.IMPN ---
Subjective Subjective Date of Service: 02/01/25 Interval History: afib a bit better controlled still 100s-120s Physical Exam Vital Signs: Vital Signs: Last Vital Signs Temp 98.0 F 02/01/25 07:09 Pulse 105 H 02/01/25 07:09 Resp 20 02/01/25 07:09 BP 150/86 H 02/01/25 07:09 Pulse Ox 100 02/01/25 07:09 O2 Del Method Nasal Cannula 02/01/25 07:09 O2 Flow Rate 1 02/01/25 07:09 BMI result Body Mass Index 23.2 Const: General: comfortable and no acute distress Orientation/consciousness: patient oriented x3 HEENT: Other: Unremarkable Head: Yes normal to inspection Neck: Neck: Yes normal visual inspection Chest: Chest palpation & inspection: normal inspection of the chest Resp: Auscultation: clear to auscultation bilaterally Cardio: Palpation: normal PMI Heart sounds: S1 normal heart sound present, S2 normal heart sound present, no gallops, no murmurs and no rubs GI: Palpation (GI): Soft to palpation Back/Spine/Pelvis: Other: unremarkable Skin: General skin exam: no rashes or lesions noted Neuro: General: patient oriented x3 Extrem: General: Yes normal to inspection Psych: Mental Status: mental status grossly normal Objective Data Active Medications Acetaminophen (Acetaminophen 325 Mg Tablet) 650 mg PO Q6H PRN PRN Reason: Pain, Mild 1-3,fever,headache Last Admin: 01/31/25 01:19 Dose: 650 mg Documented By: JOHNNA Apixaban (Apixaban 5 Mg Tablet) 5 mg PO BID [facility] Last Admin: 02/01/25 09:48 Dose: 5 mg Documented By: BECKA Atenolol (Atenolol 50 Mg Tablet) 50 mg PO BEDTIME [facility]; Protocol Last Admin: 01/31/25 19:59 Dose: 50 mg Documented By: VICKEY Atenolol (Atenolol 100 Mg Tablet) 100 mg PO BID [facility]; Protocol Last Admin: 02/01/25 09:49 Dose: 100 mg Documented By: BECKA Calcium Carbonate (Calcium Carbonate 750 Mg Tab.Chew) 750 mg PO Q4H PRN PRN Reason: Heartburn Last Admin: 01/31/25 05:41 Dose: 750 mg Documented By: JOHNNA Ceftriaxone Sodium (Ceftriaxone Sodium 1 Gm Vial) 1 gm IVPUSH Q24H [facility] Last Admin: 02/01/25 09:47 Dose: 1 gm Documented By: BECKA Dextrose (Dextrose 50 % 25 Gm/50 Ml Syringe) 25 gm IVPUSH Q15M PRN; Protocol PRN Reason: per Hypoglycemia Standing Ord. Digoxin (Digoxin 0.5 Mg/2 Ml Ampul) 0.25 mg IVPUSH Q6H [facility]; Protocol Stop: 02/01/25 21:46 Last Admin: 02/01/25 09:55 Dose: 0.25 mg Documented By: BECKA Diltiazem HCl (Diltiazem Hcl Cd 120 Mg Cap.Er.Deg) 120 mg PO DAILY [facility]; Protocol Last Admin: 02/01/25 09:48 Dose: 120 mg Documented By: BECKA Diltiazem HCl (Diltiazem Hcl Cd 120 Mg Cap.Er.Deg) 120 mg PO BEDTIME [facility]; Protocol Last Admin: 01/31/25 19:59 Dose: 120 mg Documented By: VICKEY Furosemide (Furosemide 40 Mg Tablet) 40 mg PO DAILY [facility]; Protocol Last Admin: 02/01/25 09:48 Dose: 40 mg Documented By: BECKA Glucose (Glucose Gel 15 Gm Gel..Gram.) 15 gm PO Q15M PRN; Protocol PRN Reason: per Hypoglycemia Standing Ord. Hydromorphone HCl (Hydromorphone Hcl 0.5 Mg/0.5 Ml Syringe) 0.5 mg IVPUSH Q4H PRN; Protocol PRN Reason: Pain, Severe (Pain Scale 7-10) Last Admin: 01/31/25 14:06 Dose: 0.5 mg Documented By: KEE Insulin Human Lispro (Insulin Lispro 100 Unit/Ml 3 Ml Vial) 0 unit SUBCUT QIDACHS [facility]; Protocol Last Admin: 02/01/25 09:47 Dose: 2 unit Documented By: BECKA Lisinopril (Lisinopril 20 Mg Tablet) 60 mg PO DAILY [facility]; Protocol Last Admin: 02/01/25 09:48 Dose: 60 mg Documented By: BECKA Magnesium Hydroxide (Milk Of Magnesia 30 Ml Oral.Susp) 30 ml PO DAILY PRN PRN Reason: Constipation Melatonin (Melatonin 3 Mg Tablet) 6 mg PO BEDTIME PRN PRN Reason: Insomnia Metoprolol Tartrate (Metoprolol Tartrate 5 Mg/5 Ml Vial) 5 mg IVPUSH Q6H PRN; Protocol PRN Reason: Heart Rate >100 Last Admin: 01/30/25 22:40 Dose: 5 mg Documented By: JOHNNA Ondansetron HCl (Ondansetron Hcl 4 Mg/2 Ml Vial) 4 mg IVPUSH Q8H PRN PRN Reason: Nausea and Vomiting Last Admin: 01/28/25 10:41 Dose: 4 mg Documented By: KEE Sertraline HCl (Sertraline Hcl 100 Mg Tablet) 100 mg PO DAILY [facility] Last Admin: 02/01/25 09:48 Dose: 100 mg Documented By: BECKA Sodium Chloride (0.9 % Sodium Chloride Flush 3 Ml Syringe) [facility] Last Admin: 02/01/25 09:47 Dose: 3 ml Documented By: BECKA Labs 02/01/25 06:36 02/01/25 06:36 Labs: Laboratory Results - last 24 hr 01/31/25 01/31/25 01/31/25 11:42 15:56 20:55 MCV MCH MCHC RDW Plt Count MPV Absolute Nucleated RBC Nucleated RBC % (auto) Anion Gap Estim Creat Clear Calc Estimated GFR POC Glucose 239 H 190 H 208 H Random Glucose Calcium Magnesium Total Bilirubin Direct Bilirubin AST ALT Alkaline Phosphatase Total Protein Albumin 02/01/25 02/01/25 06:36 06:51 MCV 79.8 L MCH 27.7 MCHC 34.7 RDW 13.4 Plt Count 301 MPV 9.9 Absolute Nucleated RBC 0.000 Nucleated RBC % (auto) 0.0 Anion Gap 16 Estim Creat Clear Calc 50.7 Estimated GFR > 60 POC Glucose 185 H Random Glucose 180 H Calcium 9.1 Magnesium 1.5 L Total Bilirubin 0.4 Direct Bilirubin 0.2 AST 15 ALT 14 Alkaline Phosphatase 123 H Total Protein 6.5 Albumin 3.2 L Assessment and Plan (1) Atrial fibrillation with RVR: Status: Acute Plan 79F PMH dm, htn, mood disorder, hld presented with weaknness and right flank pain, found to have sepsis right obstructing stone, afib with rvr Sepsis due to right nephrolithiasis obstructing with hydronephrosis and acute pyelonephritis complicated by ecoli bacteremia Continue ceftriaxone s/p cysto and stent 01/27/25 New onset AFib with RVR atenololol - increase to 100mg bid, cardizem 120mg bid, amio does not seem to be helping dced 3 doses dig 0.25mg apixaban acute hypoxic respiratory failure due to Acute on chronic diastolic CHF Improved with IV Lasix, changed to po wean o2 Diabetes with hyperglycemia Insulin sliding scale Hypertension Continue atenolol, lisinopril, nifedipine Mood disorder Sertraline DVT prophylaxis apixaban Full code reason for continued hospitalization: rvr Quality Stroke Does the patient have a stroke diagnosis?: No VTE Prior VTE?: No VTE Risk Level:: Medical - moderate - high VTE Device Contraindication: N/A - Device Ordered VTE Drug Contraindication: Treatment Not Indicated
[2025-02-01] MEDS: Acetaminophen 325 MG TABLET 650 MG PO (11:49)
[2025-02-01] MEDS: ondansetron HCL 4 MG/2 ML VIAL IVPUSH (11:49)
[2025-02-01 16:32] LABS: Glucose, Whole Blood 188 mg/dL (60-115)
[2025-02-01 17:08] LABS: Glucose, Whole Blood 289 mg/dL (60-115)
[2025-02-01] MEDS: HYDROmorphone HCl 0.5 MG/0.5 ML SYRINGE IVPUSH (20:25)
[2025-02-01] MEDS: atenoloL 50 MG TABLET PO (20:29)
[2025-02-01 20:45] LABS: Glucose, Whole Blood 212 mg/dL (60-115)
[2025-02-02] VITALS (7 sets, daily range): BP systolic 112–158; BP diastolic 51–71; PULSE 56–109; RESP 16–18; TEMP 35.8–36.4; O2SAT 93–98
[2025-02-02 07:08] LABS: Glucose, Whole Blood 188 mg/dL (60-115)
[2025-02-02 07:14] LABS: Hemoglobin 12.9 g/dl (12.0-16.0); Mean Corpuscular HGB Conc 34.9 g/dl (31.0-35.0); Mean Corpuscular Hemoglobin 27.7 pg (27.0-33.0); Mean Corpuscular Volume 79.6 fL (80.0-98.0); Mean Platelet Volume 9.6 fL (9.4-12.3); Platelet Count 299 X10*3/uL (160-400); Red Blood Count 4.65 X10*6/uL (4.20-5.50); Red Cell Distribution Width 13.4 % (11.0-16.0); White Blood Count 7.9 X10*3/uL (4.8-10.8)
[2025-02-02 07:15] LABS: Anion Gap 13 (12-20); Blood Urea Nitrogen 20 mg/dL (9-16); Carbon Dioxide 30 mmol/L (22-29); Chloride 98 mmol/L (96-108); Creatinine Clr Calc Pharmacy 47.3; Estimated Glomerular Filt Rate > 60; Glucose Random 193 mg/dL (60-115); Sodium 137 mmol/L (135-145)
[2025-02-02] MEDS: Insulin Lispro 100 UNIT/ML 3 ML VIAL SUBCUT ×4 (07:51→21:17)
[2025-02-02] MEDS: Sertraline HCL 100 MG TABLET PO (07:52)
[2025-02-02] MEDS: atenoloL 100 MG TABLET PO ×2 (07:52→21:18)
[2025-02-02] MEDS: Furosemide 40 MG TABLET PO (07:52)
[2025-02-02] MEDS: Apixaban 5 MG TABLET PO ×2 (07:53→21:18)
[2025-02-02] MEDS: dilTIAZem HCL CD 120 MG CAP.ER.DEG PO ×2 (07:53→21:18)
[2025-02-02] MEDS: 0.9 % Sodium Chloride Flush 3 ML SYRINGE IVFLUSH ×2 (07:53→18:02)
[2025-02-02] MEDS: lisinopriL 20 MG TABLET 60 MG PO (07:53)
[2025-02-02] MEDS: cefTRIAXone sodium 1 GM VIAL IVPUSH (09:45)
[2025-02-02 10:56] LABS: Glucose, Whole Blood 231 mg/dL (60-115)
--- NOTE | 2025-02-02 10:57 | P.PNIM_ITS ---
Subjective Subjective Date of Service: 02/02/25 Interval History: AFiB is controlled, no other complaint, thinks she can go home Physical Exam 2 Vital Signs: Vital Signs: Last Vital Signs Temp 96.9 F 02/02/25 07:20 Pulse 79 02/02/25 07:20 Resp 18 02/02/25 07:20 BP 144/64 H 02/02/25 07:20 Pulse Ox 98 02/02/25 07:20 O2 Del Method Nasal Cannula 02/02/25 07:20 O2 Flow Rate 1 02/02/25 07:20 BMI result Body Mass Index 23.2 Const: General: cooperative, comfortable, alert, awake and anxious N utritional Appearance: thin Orientation/consciousness: patient oriented x3 Neck: Neck: Yes trachea midline, Yes supple and Yes no JVD Resp: Effort & Inspection: normal respiratory effort Auscultation: clear to auscultation bilaterally Cardio: Jugular venous distension: no JVD Rate: tachycardic Rhythm: a bnormal rhythm irregularly irregular Heart sounds: S1 normal heart sound present, S2 normal heart sound present, no click, no gallops and no murmurs GI: Auscultation: normal bowel sounds Skin: General skin exam: no rashes or lesions noted Neuro: General: patient oriented x3 and no focal motor deficits Extrem: General: Yes no clubbing, cyanosis or edema Objective Data Active Medications Acetaminophen (Acetaminophen 325 Mg Tablet) 650 mg PO Q6H PRN PRN Reason: Pain, Mild 1-3,fever,headache Last Admin: 02/01/25 11:49 Dose: 650 mg Documented By: BECKA Apixaban (Apixaban 5 Mg Tablet) 5 mg PO BID [facility] Last Admin: 02/02/25 07:53 Dose: 5 mg Documented By: BECKA Atenolol (Atenolol 50 Mg Tablet) 50 mg PO BEDTIME [facility]; Protocol Last Admin: 02/01/25 20:29 Dose: 50 mg Documented By: VICKEY Atenolol (Atenolol 100 Mg Tablet) 100 mg PO BID [facility]; Protocol Last Admin: 02/02/25 07:52 Dose: 100 mg Documented By: BECKA Calcium Carbonate (Calcium Carbonate 750 Mg Tab.Chew) 750 mg PO Q4H PRN PRN Reason: Heartburn Last Admin: 01/31/25 05:41 Dose: 750 mg Documented By: JOHNNA Ceftriaxone Sodium (Ceftriaxone Sodium 1 Gm Vial) 1 gm IVPUSH Q24H [facility] Last Admin: 02/01/25 09:47 Dose: 1 gm Documented By: BECKA Dextrose (Dextrose 50 % 25 Gm/50 Ml Syringe) 25 gm IVPUSH Q15M PRN; Protocol PRN Reason: per Hypoglycemia Standing Ord. Diltiazem HCl (Diltiazem Hcl Cd 120 Mg Cap.Er.Deg) 120 mg PO DAILY [facility]; Protocol Last Admin: 02/02/25 07:53 Dose: 120 mg Documented By: BECKA Diltiazem HCl (Diltiazem Hcl Cd 120 Mg Cap.Er.Deg) 120 mg PO BEDTIME [facility]; Protocol Last Admin: 02/01/25 20:28 Dose: 120 mg Documented By: VICKEY Furosemide (Furosemide 40 Mg Tablet) 40 mg PO DAILY [facility]; Protocol Last Admin: 02/02/25 07:52 Dose: 40 mg Documented By: BECKA Glucose (Glucose Gel 15 Gm Gel..Gram.) 15 gm PO Q15M PRN; Protocol PRN Reason: per Hypoglycemia Standing Ord. Hydromorphone HCl (Hydromorphone Hcl 0.5 Mg/0.5 Ml Syringe) 0.5 mg IVPUSH Q4H PRN; Protocol PRN Reason: Pain, Severe (Pain Scale 7-10) Last Admin: 02/01/25 20:25 Dose: 0.5 mg Documented By: VICKEY Insulin Human Lispro (Insulin Lispro 100 Unit/Ml 3 Ml Vial) 0 unit SUBCUT QIDACHS [facility]; Protocol Last Admin: 02/02/25 07:51 Dose: 2 unit Documented By: BECKA Lisinopril (Lisinopril 20 Mg Tablet) 60 mg PO DAILY [facility]; Protocol Last Admin: 02/02/25 07:53 Dose: 60 mg Documented By: BECKA Magnesium Hydroxide (Milk Of Magnesia 30 Ml Oral.Susp) 30 ml PO DAILY PRN PRN Reason: Constipation Melatonin (Melatonin 3 Mg Tablet) 6 mg PO BEDTIME PRN PRN Reason: Insomnia Metoprolol Tartrate (Metoprolol Tartrate 5 Mg/5 Ml Vial) 5 mg IVPUSH Q6H PRN; Protocol PRN Reason: Heart Rate >100 Last Admin: 01/30/25 22:40 Dose: 5 mg Documented By: JOHNNA Ondansetron HCl (Ondansetron Hcl 4 Mg/2 Ml Vial) 4 mg IVPUSH Q8H PRN PRN Reason: Nausea and Vomiting Last Admin: 02/01/25 11:49 Dose: 4 mg Documented By: BECKA Sertraline HCl (Sertraline Hcl 100 Mg Tablet) 100 mg PO DAILY [facility] Last Admin: 02/02/25 07:52 Dose: 100 mg Documented By: BECKA Sodium Chloride (0.9 % Sodium Chloride Flush 3 Ml Syringe) 3 ml IVFLUSH QSHIFT [facility] Last Admin: 02/02/25 07:53 Dose: 3 ml Documented By: BECKA Labs 02/02/25 06:48 02/02/25 06:48 Labs: Laboratory Results - last 24 hr 02/01/25 02/01/25 02/01/25 10:49 16:29 20:40 MCV MCH MCHC RDW Plt Count MPV Absolute Nucleated RBC Nucleated RBC % (auto) Anion Gap Estim Creat Clear Calc Estimated GFR POC Glucose 289 H 188 H 212 H Random Glucose Calcium 02/02/25 02/02/25 02/02/25 06:48 07:00 10:53 MCV 79.6 L MCH 27.7 MCHC 34.9 RDW 13.4 Plt Count 299 MPV 9.6 Absolute Nucleated RBC 0.000 Nucleated RBC % (auto) 0.0 Anion Gap 13 Estim Creat Clear Calc 47.3 Estimated GFR > 60 POC Glucose 188 H 231 H Random Glucose 193 H Calcium 9.0 Assessment and Plan (1) Atrial fibrillation with RVR: Status: Acute Plan 79F PMH dm, htn, mood disorder, hld presented with weaknness and right flank pain, found to have sepsis right obstructing stone, afib with rvr Sepsis due to right nephrolithiasis obstructing with hydronephrosis and acute pyelonephritis complicated by ecoli bacteremia Continue ceftriaxone for e coli in the urine s/p cysto and stent 01/27/25 New onset AFib with RVR atenololol adjusted to 100mg bid, cardizem 120mg bid, amio didn't help and stopped 3 doses dig 0.25mg apixaban acute hypoxic respiratory failure due to Acute on chronic diastolic CHF Improved with IV Lasix, changed to po wean o2 Diabetes with hyperglycemia Insulin sliding scale Hypertension Continue atenolol, lisinopril, cardizem Mood disorder Sertraline DVT prophylaxis apixaban Full code reason for continued hospitalization: rvr PT recommends STR, Quality Stroke Does the patient have a stroke diagnosis?: No VTE Prior VTE?: No VTE Risk Level:: Medical - moderate - high VTE Device Contraindication: N/A - Device Ordered VTE Drug Contraindication: Treatment Not Indicated
--- NOTE | 2025-02-02 11:18 | PM.PNCARD ---
Subjective Subjective Date of Service: 02/02/25 Principal diagnosis: atrial fibrillation Interval history: Atrial fibrillation rate is much better control after digoxin load. Currently doing well. No heart failure symptoms. Off oxygen. Denies any cardiac symptoms Review of Systems Constitutional: Reports weakness Eyes: Reports no additional eye complaints Cardiovascular: Reports no additional cardiovascular complaints Respiratory: Reports no additional respiratory complaints Genitourinary: Reports no additional female genitourinary complaints Reports weakness Physical Exam Vital Signs: Last Vital Signs Temp 97.3 F 02/02/25 11:01 Pulse 85 02/02/25 11:01 Resp 18 02/02/25 11:01 BP 154/63 H 02/02/25 11:01 Pulse Ox 96 02/02/25 11:01 O2 Del Method Room Air 02/02/25 11:01 O2 Flow Rate 1 02/02/25 07:20 BMI result Body Mass Index 23.2 Const General: cooperative, comfortable, alert, awake and anxious Nutritional Appearance: thin Orientation/consciousness: patient oriented x3 Neck Neck: Yes trachea midline, Yes supple and Yes no JVD Resp Effort & Inspection: normal respiratory effort Auscultation: clear to auscultation bilaterally Cardio Jugular venous distension: no JVD Rate: regular rate Rhythm: abnormal rhythm irregularly irregular Heart sounds: S1 normal heart sound present, S2 normal heart sound present, no click, no gallops and no murmurs GI Auscultation: normal bowel sounds Skin General skin exam: no rashes or lesions noted Neuro General: patient oriented x3 and no focal motor deficits Extrem General: Yes no clubbing, cyanosis or edema Objective Labs and Meds 02/02/25 06:48 02/02/25 06:48 Lab results: Laboratory Results - last 24 hr 02/01/25 02/01/25 02/01/25 10:49 16:29 20:40 WBC RBC Hgb Hct MCV MCH MCHC RDW Plt Count MPV Absolute Nucleated RBC Nucleated RBC % (auto) Sodium Potassium Chloride Carbon Dioxide Anion Gap BUN Creatinine Estim Creat Clear Calc Estimated GFR POC Glucose 289 H 188 H 212 H Random Glucose Calcium 02/02/25 02/02/25 02/02/25 06:48 07:00 10:53 WBC 7.9 RBC 4.65 Hgb 12.9 Hct 37.0 MCV 79.6 L MCH 27.7 MCHC 34.9 RDW 13.4 Plt Count 299 MPV 9.6 Absolute Nucleated RBC 0.000 Nucleated RBC % (auto) 0.0 Sodium 137 Potassium 4.0 Chloride 98 Carbon Dioxide 30 H Anion Gap 13 BUN 20 H Creatinine 0.74 Estim Creat Clear Calc 47.3 Estimated GFR > 60 POC Glucose 188 H 231 H Random Glucose 193 H Calcium 9.0 Progress Note: A&P Assessment and plan (1) Atrial fibrillation with RVR: Status: Acute Assessment and Plan: Atrial fibrillation with better rate control on triple therapy. Continue the same. Would add digoxin 0.125 mg to her regimen orally. Continue Cardizem and atenolol. Will set up for outpatient Holter monitor and follow-up. Continue full oral anticoagulation. Will schedule for outpatient follow-up after Holter monitor to discuss cardioversion. (2) Congestive heart failure: Status: Acute Assessment and Plan: Congestive heart failure, clinically euvolemic and well compensated. Continue current rate control as above. Continue aggressive blood pressure control. Low-dose diuretic as outpatient. Supportive care. Will set up for outpatient follow-up. Thank you for allowing me to partake in his care Time Spent With Patient Time: Total time managing care of this patient today ____ minutes. Progress Note: Quality Stroke Does the patient have a stroke diagnosis?: No Procedures Date of Service Date of Service: 02/02/25
--- NOTE | 2025-02-02 13:29 | MHC.CM.PN ---
EMR reviewed and per MD rounds, pt is not medically cleared for discharge due to management of atrial fibrillation with RVR. This CM met with pt to discuss discharge plan, PT has evaluated pt and recommended acute rehab. Pt states she is unsure if she wants to go to rehab vs going home, she states she needs another night to decide, she wants to work with PT here more and see how she does, then will let us know.
[2025-02-02 16:01] LABS: Glucose, Whole Blood 209 mg/dL (60-115)
[2025-02-02] MEDS: HYDROmorphone HCl 0.5 MG/0.5 ML SYRINGE IVPUSH (18:02)
[2025-02-02] MEDS: Digoxin 0.125 MG TABLET PO (18:33)
[2025-02-02 20:34] LABS: Glucose, Whole Blood 187 mg/dL (60-115)
[2025-02-02] MEDS: atenoloL 50 MG TABLET PO (21:27)
[2025-02-03] MEDS: 0.9 % Sodium Chloride Flush 3 ML SYRINGE IVFLUSH ×2 (00:19→08:03)
[2025-02-03] MEDS: Acetaminophen 325 MG TABLET 650 MG PO (00:23)
[2025-02-03 03:31] VITALS: BP 156/69; PULSE 75; RESP 18; TEMP 36.3; O2SAT 97
[2025-02-03 07:00] LABS: Glucose, Whole Blood 209 mg/dL (60-115)
[2025-02-03 07:13] VITALS: BP 152/62; PULSE 84; RESP 18; TEMP 36.1; O2SAT 97
[2025-02-03] MEDS: dilTIAZem HCL CD 120 MG CAP.ER.DEG PO (08:03)
[2025-02-03] MEDS: cefTRIAXone sodium 1 GM VIAL IVPUSH (08:03)
[2025-02-03] MEDS: Furosemide 40 MG TABLET PO (08:04)
[2025-02-03] MEDS: atenoloL 100 MG TABLET PO (08:04)
[2025-02-03] MEDS: Apixaban 5 MG TABLET PO (08:04)
[2025-02-03] MEDS: lisinopriL 20 MG TABLET 60 MG PO (08:04)
[2025-02-03] MEDS: Sertraline HCL 100 MG TABLET PO (08:04)
[2025-02-03] MEDS: Insulin Lispro 100 UNIT/ML 3 ML VIAL SUBCUT ×2 (08:05→11:58)
[2025-02-03 08:20] VITALS: O2SAT 94
[2025-02-03 10:50] LABS: Glucose, Whole Blood 289 mg/dL (60-115)
[2025-02-03 11:02] VITALS: BP 140/62; PULSE 87; RESP 20; TEMP 36.4; O2SAT 97
--- NOTE | 2025-02-03 14:40 | PM.DS ---
DS: Providers Provider Date of Service: 02/03/25 Date of admission: 01/26/25 19:20 Date of discharge: 02/03/25 Primary care physician: Bradly Carrillo MD Consults: 01/26/25 19:33 Consult to Urology Routine Consulting Provider: [facility] [place] [facility] Reason for consultation: Ureteral stone with hydronephrosis 01/26/25 19:40 Consult to Cardiology Routine Consulting Provider: [facility] [place] [facility] Reason for consultation: afib with rvr ; chf Has provider been notified: Yes DS: Diagnosis Discharge Diagnosis (1) Atrial fibrillation with RVR: Status: Acute (2) Congestive heart failure: Status: Acute (3) Ureteral stone with hydronephrosis: Status: Acute (4) Sepsis: Status: Acute (5) Acute unilateral obstructive uropathy: Status: Acute (6) Acute pyelonephritis: Status: Acute (7) E coli bacteremia: Status: Acute DS: Summary Hospital Course Hospital Course: Admission note HPI This is a 79-year-old female with pertinent history of [id number] diabetes mellitus, hypertension, mood disorder, mixed hyperlipidemia who presents due to the emergency department for evaluation of generalized weakness and abdominal pain. Patient states she has been feeling unwell for a week. She has been feeling weak and is with easy fatigability and malaise. Also has been having right-sided flank pain which radiates to her groin. Has associated nausea and nonbloody emesis. Also having chills but no documented temperature at home. Minimal dyspnea but no chest pain or palpitations. Patient does endorse burning with micturition but no changes in bowel habits. In the emergency department, patient was found to be septic and urine concerning for UTI. Imaging with right ureteral stone with hydronephrosis. Also found to be in AFib with RVR. Imaging also revealed interstitial pulmonary edema and BNP was found to be elevated. Hospital course She was evaluated and treated for Sepsis due to right nephrolithiasis obstructing with hydronephrosis and acute pyelonephritis complicated by ecoli bacteremia as showed on her CR scan from admission. Evaluated by dr Shah from Urology who did cysto and stent 01/27/25. blood and urine culture grew E.Coli that was treated with IV Ceftriaxone with good response. repeated cultures negative. pain improved. she has a plan to follow with [facility] [place] Urology as ouptatient. She was noted to have New onset AFib with RVR which was difficult to control but eventually controlled with Atenololol 100mg bid and 50 more at bedtime along with cardizem 120mg bid and Digoxin 0.125 mg Q2Days as Amiodarone didn't help and was stopped. Started on Eliquis with a plan to follow with cardiology as outpatient for monitoring. advised to take her time changing position and monitor her BP at home as she is on many medications that might affect it. acute hypoxic respiratory failure due to Acute on chronic diastolic CHF. Improved with IV Lasix as she was weaned off oxygen. evaluated by cardiology during hospital stay. To be discharged on 40 mg of Lasix daily with a plan to follow with cardiology as outpatient. She was evaluated by PT who recommended SNF placement but patient prefers to go home. Will go home with VNA and family support. Discharge plan Stop Nifidipine Increase Atenolol to 100 mg in morning and 150 mg bedtime Start Cardizem 120 mg CD two times a day Start Digoxin 0.125 mg every two days Start Eliquis 5 mg twice a day as blood thinner Start Lasix 40 mg daily Monitor your weight on daily basis and report changes to PCP Follow with Dr Shah from Urology as outpatient in 2 weeks Follow with cardiology as scheduled Time Attestation Discharge Coordination Time (in mins): 42 Quality: Safe Use of Opioids Does Pt have an Active Cancer Diagnosis on the Problem List?: No Quality: Stroke Does the patient have a stroke diagnosis?: No Physical Exam Vital Signs: Vital Signs: Last Vital Signs Temp 97.5 F 02/03/25 11:02 Pulse 87 02/03/25 11:02 Resp 20 02/03/25 11:02 BP 140/62 H 02/03/25 11:02 Pulse Ox 97 02/03/25 11:02 O2 Del Method Room Air 02/03/25 11:02 O2 Flow Rate 1 02/03/25 07:13 BMI result Body Mass Index 23.2 Const: Other: Constitutional : Awake, interactive, not in distress Neck : Normal inspection, Supple Cardiovascular : RRR, no JVP, no lower extremity edema Respiratory : good bilateral air entry, no crackles, wheezes or rhonchi Gastrointestinal: soft, lax, Normal bowel sounds, Non tender Skin : Warm, Dry Neurological : Alert & oriented x3, No focal deficit DS: Data Data Completed and Pending Labs on day of discharge: Laboratory Results - last 24 hr 02/02/25 02/02/25 02/03/25 15:57 20:25 06:55 POC Glucose 209 H 187 H 209 H 02/03/25 10:47 POC Glucose [address] scan - abdomen: Radiologist's impression: ITS Impressions Guidance Fluoroscopy 01/27/25 17:50 IMPRESSION: Fluoroscopy during procedure. Please see procedure report for additional information. Electronically signed by: Edgar Ayala MD 01/28/2025 07:[address] Abd Impression: Proximal right ureteral stones with moderate hydronephrosis. Severe aortoiliac atherosclerosis. Prominent septal thickening in the lower lung suspicious for pulmonary edema. Punctate collection of gas in the bladder possibly iatrogenic correlate clinically. Other findings as above. This document has been electronically signed by: Grzegorz Flanagan MD on 01/26/2025 18:12:21 Discharge Plan Discharge Anticipated Discharge Date/Time: 02/03/25 14:32 Patient Disposition: Home Health Service Discharge Diagnosis: Acute pyelonephritis Atrial fibrillation with rapid response HEart failure exacerbation Referrals: Bradly Carrillo MD [Primary Care Provider] - 1 Week Discharge Medications: New Eliquis 5 mg Tablet 5 mg PO BID Qty: 180 0RF furosemide 40 mg Tablet 40 mg PO DAILY Qty: 90 0RF Protocol: Hold for SBP< HOLD for SBP < : 90 atenolol 100 mg Tablet 100 mg PO BID Qty: 180 0RF Protocol: Hold for SBP/HR < HOLD for SBP < : 90 HOLD for HR < : 60 diltiazem HCl [Cardizem CD] 120 mg Capsule,Extended Release 24hr 120 mg PO DAILY Qty: 90 0RF Protocol: Hold for SBP/HR < HOLD for SBP < : 90 HOLD for HR < : 60 diltiazem HCl [Cardizem CD] 120 mg Capsule,Extended Release 24hr 120 mg PO BEDTIME Qty: 90 0RF Protocol: Hold for SBP/HR < HOLD for SBP < : 90 HOLD for HR < : 60 digoxin 125 mcg (0.125 mg) Tablet 0.125 mg PO Q2D Qty: 45 0RF Protocol: Hold for HR <: HOLD for HR < : 60 atenolol 50 mg Tablet 50 mg PO BEDTIME Qty: 90 0RF Protocol: Hold for SBP/HR < HOLD for SBP < : 90 HOLD for HR < : 60 cefuroxime axetil 500 mg tablet 500 mg PO BID Qty: 14 0RF Continued sertraline 100 mg tablet 100 mg PO DAILY simvastatin 80 mg tablet 80 mg PO BEDTIME glipizide 2.5 mg tablet extended release 24hr 2.5 mg PO DAILY lisinopril 40 mg tablet 60 mg PO DAILY metformin 500 mg tablet extended release 24 hr 500 mg PO TID acetaminophen [Tylenol] 325 mg Tablet 325 mg PO Q4H PRN (Reason: Pain) calcium carbonate 500 mg calcium (1,250 mg) Tablet 500 mg PO DAILY Women's 50 Plus Multivitamin 400 mcg-500 mg calcium-20 mcg Tablet 1 tab PO DAILY Discontinued atenolol 100 mg tablet 100 mg PO DAILY nifedipine 30 mg tablet extended release 30 mg PO DAILY Discharge Orders: Discharge Order (Routine); Ordered 02/03/25 Ordered By: Valerio Quinn Diet: Low salt diet Activity on Discharge: As tolerated Stand Alone Forms: Patient Portal Discharge page Print Language: Telugu Care Plan Goals: Stop Nifidipine Increase Atenolol to 100 mg in morning and 150 mg bedtime Start Cardizem 120 mg CD two times a day Start Digoxin 0.125 mg every two days Start Eliquis 5 mg twice a day as blood thinner Start Lasix 40 mg daily Monitor your weight on daily basis and report changes to PCP Follow with Dr Shah from Urology as outpatient in 2 weeks Follow with cardiology as scheduled Health Concerns: Heart failure Atrial fibrillation Pyelonephritis Plan of Treatment: Antibiotics Atenolol, Cardizem, Digoxin Follow up with Urology and Cardiology as outpatient Assessment: as above
--- NOTE | 2025-02-03 14:48 | W.MHC.F2F ---
Service Date Service Date: 02/03/25 Encounter Date of encounter: 02/03/25 Reasons for Services Signs and symptoms assessed: New medications physical deconditionig Reason for alf: medication management, medication treatment and teach disease management Reason for physical therapy: home safety and mobility and therapeutic exercises Homebound: Leaving the home is medically contraindicated at this time without the asist of a device and/or another person due th the listed conditions above and below. Reason homebound: unable to drive Certification: Based on the above findings, I certify that this patient is confined to the home and needs intermittent alf care, physical therapy and/or speech therapy, or continues to need occupational therapy. The patient is under my care, and I have initiated the establishment of the plan of care. The patient will be followed by a physician who will periodically review the plan of care. Time Spent With Patient Time: Total time managing care of this patient today ____ minutes.
--- NOTE | 2025-02-03 15:26 | MHC.CM.PN ---
Pt has been medically cleared to [place], she will go home via private transport, she declined to go to [facility], she will have home care services from [facility].
[2025-02-03 15:35] VITALS: BP 136/73; PULSE 84; RESP 18; TEMP 36.1; O2SAT 96
== END 2025-02-03 16:59 | disposition home health service (06) | DRG 853 ==
LOC: HO.ED 19:26 → HO.EDOVER 19:32 → HO.IMC 01-27 00:03
PROVIDERS: Hospitalist; Internal Medicine; Urology; Admitting Provider Student in an Organized Health Care Education/Training Program; Emergency Provider Emergency Medicine; PCP Internal Medicine; Visit Provider Student in an Organized Health Care Education/Training Program
PROC: 0T768DZ Dilation of Right Ureter with Intraluminal Device, Via Natural or Artificial Opening Endoscopic (ICD-10-PCS; principal; 2025-01-27 19:00)
DX: A41.9 Sepsis, unspecified organism (principal); I50.33 Acute on chronic diastolic (congestive) heart failure; J96.01 Acute respiratory failure with hypoxia; N13.6 Pyonephrosis; F39 Unspecified mood [affective] disorder; E78.2 Mixed hyperlipidemia; I48.91 Unspecified atrial fibrillation; E11.65 Type 2 diabetes mellitus with hyperglycemia; R65.20 Severe sepsis without septic shock; B96.20 Unspecified Escherichia coli [E. coli] as the cause of diseases classified elsewhere; I11.0 Hypertensive heart disease with heart failure; Z20.822 Contact with and (suspected) exposure to COVID-19; Z79.84 Long term (current) use of oral hypoglycemic drugs; Z79.899 Other long term (current) drug therapy
CPT/HCPCS: 0241U; 36415; 71045; 71250; 74176; 80048; 80076; 81001; 82947; 83605; 83690; 83735; 83880; 84443; 84484; 85025; 85027; 85610; 87040; 87077; 87086; 87186; 87205; 93005; 93306; 97116; 97162; 99285; C1758; C1769; C2617; J0131; J0330; J0696; J1160; J1171; J1308; J1580; J1650; J1938; J2003; J2405; J2704; J3010; J7120; Q9957; Q9967

== ENCOUNTER → 2025-01-26 16:24 | Outpatient (BNV) | payer SELFPAY | PROVIDERS: Emergency Provider Emergency Medicine; PCP Internal Medicine; Visit Provider Radiology Diagnostic Radiology | DX: N13.2 Hydronephrosis with renal and ureteral calculous obstruction (principal); I70.8 Atherosclerosis of other arteries; J81.0 Acute pulmonary edema; R91.1 Solitary pulmonary nodule; R11.10 Vomiting, unspecified | CPT/HCPCS: 71045; 71250; 74176 ==

== ENCOUNTER 2025-01-26 19:20 | Outpatient (BNV) | payer MEDICARE, OTHER, SELFPAY | END 2025-01-30 10:27 | PROVIDERS: Admitting Provider Student in an Organized Health Care Education/Training Program; Emergency Provider Emergency Medicine; PCP Internal Medicine; Visit Provider Radiology Vascular & Interventional Radiology | DX: I50.9 Heart failure, unspecified (principal); I48.91 Unspecified atrial fibrillation | CPT/HCPCS: 71045 ==

== ENCOUNTER 2025-01-26 19:20 | Outpatient (BNV) | payer MEDICARE, OTHER, SELFPAY | END 2025-01-27 07:00 | PROVIDERS: Admitting Provider Student in an Organized Health Care Education/Training Program; Emergency Provider Emergency Medicine; PCP Internal Medicine; Visit Provider Internal Medicine | DX: I35.0 Nonrheumatic aortic (valve) stenosis (principal); I34.81 Nonrheumatic mitral (valve) annulus calcification; I34.0 Nonrheumatic mitral (valve) insufficiency | CPT/HCPCS: 93306 ==

== ENCOUNTER 2025-01-26 19:20 | Outpatient (BNV) | payer MEDICARE, OTHER, SELFPAY | END 2025-01-31 05:41 | PROVIDERS: Admitting Provider Student in an Organized Health Care Education/Training Program; Emergency Provider Emergency Medicine; PCP Internal Medicine; Visit Provider Internal Medicine Cardiovascular Disease | DX: R94.31 Abnormal electrocardiogram [ECG] [EKG] (principal) | CPT/HCPCS: 93010 ==

== ENCOUNTER → 2025-01-26 19:20 | Outpatient (BNV) | payer MEDICARE, OTHER, SELFPAY | PROVIDERS: Admitting Provider Student in an Organized Health Care Education/Training Program; Emergency Provider Emergency Medicine; PCP Internal Medicine; Visit Provider Urology | DX: N10 Acute pyelonephritis (principal); N13.2 Hydronephrosis with renal and ureteral calculous obstruction | CPT/HCPCS: 99223 ==

== ENCOUNTER → 2025-01-26 19:20 | Outpatient (BNV) | payer MEDICARE, OTHER, SELFPAY | PROVIDERS: Admitting Provider Student in an Organized Health Care Education/Training Program; Emergency Provider Emergency Medicine; PCP Internal Medicine; Visit Provider Internal Medicine | DX: I48.91 Unspecified atrial fibrillation (principal); I50.9 Heart failure, unspecified; A41.9 Sepsis, unspecified organism; N10 Acute pyelonephritis | CPT/HCPCS: 93010; 99223 ==

== ENCOUNTER → 2025-01-26 19:20 | Outpatient (BNV) | payer MEDICARE, OTHER, SELFPAY | PROVIDERS: Admitting Provider Student in an Organized Health Care Education/Training Program; Emergency Provider Emergency Medicine; PCP Internal Medicine; Visit Provider Student in an Organized Health Care Education/Training Program | DX: I48.91 Unspecified atrial fibrillation (principal); A41.9 Sepsis, unspecified organism; N13.2 Hydronephrosis with renal and ureteral calculous obstruction | CPT/HCPCS: 99223; 99232; 99233 ==

== ENCOUNTER → 2025-02-08 10:34 | Outpatient (REF) | payer MEDICARE, OTHER, SELFPAY | LOC: HO.CARD 10:34 | PROVIDERS: Visit Provider Internal Medicine | DX: I48.91 Unspecified atrial fibrillation (principal); I50.9 Heart failure, unspecified | CPT/HCPCS: 93225 ==

== ENCOUNTER 2025-02-23 15:05 | Outpatient (REF) | payer MEDICARE, OTHER, SELFPAY | END 2025-02-23 15:06 | disposition home or self-care (01) | LOC: HO.LNP 15:05 | PROVIDERS: PCP Internal Medicine; Visit Provider Urology | DX: Z46.6 Encounter for fitting and adjustment of urinary device (principal); N10 Acute pyelonephritis; N13.9 Obstructive and reflux uropathy, unspecified; A41.9 Sepsis, unspecified organism; B96.20 Unspecified Escherichia coli [E. coli] as the cause of diseases classified elsewhere; N13.2 Hydronephrosis with renal and ureteral calculous obstruction | CPT/HCPCS: 52310; 81003; 87086; 87088; 87186; 99212 ==

== ENCOUNTER 2025-02-23 15:05 | Outpatient (AMB) | payer MEDICARE, OTHER, SELFPAY ==
--- NOTE | 2025-02-23 15:45 | A.OFFVIS_ITS ---
Intake Visit Reasons: cysto stent removal Intake Note: Patient presents today for cystoscopy stent removal Urology Medication:Finasteride, Tamsulosin Blood Thinner:None Antibiotic Allergies:None Allergies No Known Allergies Allergy (Verified 03/11/25 14:18) HPI Comments Details: 02/23/25--CYSTOSCOPY NOT DONE, stent remains, need to check KUB urine c/s sent, pt asymptomatic --History of Present Illness The patient is a 79-year-old female presenting with nephrolithiasis and the need for a cystoscopy and stent removal. Two weeks previously, she underwent a urethroscopy where significant inflammation and swelling in the ureter were observed, and a stent was placed. A CT scan performed on the of the last month showed right-sided nephrolithiasis. Initially, there was a plan to break up the stones during the urethroscopy; however, only stent placement was achieved due to the extent of inflammation. There have been no significant symptoms reported since the initial procedure, with the patient not experiencing pain or discomfort from the presence of the stent and no other typical symptoms of nephrolithiasis affecting her daily activities. Urinary Symptoms Review - No reported discomfort from the ureteral stent. - No report of lower back pain. - No urinary tract infection symptoms noted post-stent placement. Results - CT Scan 01/26/25--Stones present on the right ureter; no stones on the left side. Discussion Notes I discussed with the patient the results of the urethroscopy and the implications of the previous CT scan, which confirmed nephrolithiasis localized to the right side. During our conversation, I clarified that there was no stone fragmentation during the previous procedure owing to significant ureteral inflammation, necessitating a stent placement instead. The plan to remove the stent today had to be deferred as the stones remain untreated. I explained the follow-up requirement for re-imaging the kidneys via KUB without an appointment and discussed the steps needed to execute this follow-up. The potential for urinary tract infection with long-term stent use was also reviewed, and a urine culture is being taken. The patient understands that once the new imaging is complete, a plan will be discussed over the phone, and further actions will be organized based on those results. 01/27/25--79-year-old female with pertinent history of [id number]-[id number] diabetes mellitus, hypertension, mood disorder, mixed hyperlipidemia who presents due to the emergency department for evaluation of generalized weakness and abdominal pain. CTAP - Right proximal ureteral stones with hydronephrosis PFSH Medical History Congestive heart failure Mood disorder Mixed hyperlipidemia Hypertension Non-insulin dependent type 2 diabetes mellitus Social History Household Members: None Housing: House Do you presently have visiting nurse or other home services: No Patient Tobacco Use Status: Never used Tobacco service: No Review of Systems Const All systems reviewed & are unremarkable except as noted in HPI and below Reports no additional complaints Eyes Reports no additional complaints ENT Reports no additional complaints Card Reports no additional complaints Resp Reports no additional complaints GI Reports no additional complaints Reports as per HPI Musc Reports no additional complaints Skin/Breast Reports system reviewed and no additional complaints, except as documented Neuro Reports no additional complaints Psych Reports no additional complaints Endo Reports no additional complaints Josafat/Lymph Reports no additional complaints Aller/Immun Reports no additional complaints Office Procedures Cystoscopy Preparation . Procedure code (CPT) selection complete Office Meds lidocaine HCl 2 % mucosal jelly in applicator Performing Provider: Valdemar Shah MD Performing Location: [facility] Administered by: Lilian Urbina RN on 02/23/25 16:08 Dose Route Admin Location Dispensed Lot Number Expiration Date ND Care Transport Nurse 10 mL intra-urethral 10 mL nitrofurantoin monohydrate/macrocrystals 100 mg capsule Performing Provider: Valdemar Shah MD Performing Location: [facility] Administered by: Lilian Urbina RN on 02/23/25 16:08 Dose Route Admin Location Dispensed Lot Number Expiration Date NDC Care Transport Nurse 100 mg PO 1 cap phenazopyridine 200 mg tablet Performing Provider: Valdemar Shah MD Performing Location: [facility] Administered by: Lilian Urbina RN on 02/23/25 16:08 Dose Route Admin Location Dispensed Lot Number Expiration Date ND Care Transport Nurse 200 mg PO 1 tab Comments: Results AMB Urinalysis, Automated UA Leukoctes 500 Suzie/uL Last Edit by SMA Tram on 02/23/25 16:21 UA Nitrite Last Edit by SMA Tram on 02/23/25 16:21 UA Urobilinogen 0.2 mg/dL Last Edit by [place] Alexandra, [facility] on 02/23/25 16:21 UA Protein 30 mg/dL Last Edit by [place] Alexandra, [facility] on 02/23/25 16:21 UA pH 6.0 Last Edit by Villa Alexandra, [facility] on 02/23/25 16:21 UA Blood 200 Arvind/uL Last Edit by Villa Alexandra, [facility] on 02/23/25 16:21 UA Specific [place] 1.010 Last Edit by Villa Alexandra, [facility] on 02/23/25 16:21 UA Ketone Last Edit by Villa Alexandra, [facility] on 02/23/25 16:21 UA Bilirubin 0 mg/dL Last Edit by Villa Alexandra, [facility] on 02/23/25 16:21 UA Glucose 0 mg/dL Last Edit by Villa Alexandra, [facility] on 02/23/25 16:21 Results Reviewed Results Reviewed: Laboratory Last Values Urine pH (Auto) 6.0 02/23/25 16:05 Specific [place] (Auto) 1.010 02/23/25 16:05 Urine Protein (Auto) 30 mg/dL 02/23/25 16:05 Glucose (UA)(Auto) 0 mg/dL 02/23/25 16:05 Urine Blood (Auto) 200 Arvind/uL 02/23/25 16:05 Urine Bilirubin (Auto) 0 mg/dL 02/23/25 16:05 Urine Urobilinogen (Auto) 0.2 mg/dL 02/23/25 16:05 Leukocyte Esterase (Auto) 500 Suzie/uL 02/23/25 16:05 Date of Service: 01/26/25 CLINICAL HISTORY: diffuse abd pain and vomiting CT of the abdomen and pelvis without intravenous contrast. No comparison. Findings: The liver is unremarkable. The gallbladder is mildly distended without definite cholelithiasis or adjacent inflammatory change. There is right nephrolithiasis. There are at least 2 stones in the proximal right ureter measuring up to 9 mm with moderate hydronephrosis and ill-defined perinephric fluid. There is pancreatic atrophy. There is no abdominal aortic aneurysm. There is severe aortoiliac atherosclerosis with multifocal high-grade stenosis. No diverticulitis is identified. Normal appendix. No bowel obstruction. There is a punctate collection of gas in the bladder. There are calcified uterine fibroids. There is prominent septal thickening in the lower lungs. Impression: Proximal right ureteral stones with moderate hydronephrosis. Severe aortoiliac atherosclerosis. Prominent septal thickening in the lower lung suspicious for pulmonary edema. Punctate collection of gas in the bladder possibly iatrogenic correlate clinically. Other findings as above. Assessment & Plan Assessment & Plan (1) Right renal stone: Code(s): N20.0 - Calculus of kidney Category: Medical (2) Ureteral stent present: Code(s): Z96.0 - Presence of urogenital implants Category: Medical Plan Plan We planned to remove the ureteral stent today but this was deferred as the stones remain untreated. Re-imaging of the kidney using a KUB x-ray discussed Orders: Orders AMB Cystoscopy 02/23/25 N13.2 - Hydronephrosis with renal and ureteral calculous obstruction AMB Urinalysis Automated 02/23/25 Z13.9 - Encounter for screening, unspecified Urine Culture 02/23/25 R78.81 - Bacteremia, B96.20 - Unspecified Escherichia coli [E. coli] as the cause of diseases classified elsewhere, N10 - Acute pyelonephritis, N13.9 - Obstructive and reflux uropathy, unspecified, A41.9 - Sepsis, unspecified organism, N13.2 - Hydronephrosis with renal and ureteral calculous obstruction XR KUB 02/23/25 N20.0 - Calculus of kidney, Z96.0 - Presence of urogenital implants Patient Instructions: The patient had an opportunity to ask questions regarding treatment plan. The patient expressed understanding and agreement with the above treatment plan. The patient is aware they should contact our office by phone for worsening of their current condition or the appearance of new symptoms. Compliance is encouraged with any medications and followup testing that is ordered. It is a privilege to be allowed the opportunity to participate in the urologic care of your patient. If you have any questions or concerns regarding treatment for the above conditions please do not hesitate to contact me. The office telephone contact is [phone]. This note is constructed in part using voice recognition software. While every effort has been made to ensure accuracy [employer] music [employer] errors may have been included. Yours sincerely, Valdemar Shah MD Scribe Plan - Not visible on output: Patient was informed and verbally consented to the use of an ambient scribe for clinic note documentation during this visit. Coding Level of Care Code Est Pt Level 4 (82458) Diagnoses Right renal stone N20.0 Ureteral stent present Z96.0
== END 2025-02-23 16:46 | disposition home or self-care (01) ==
LOC: HO.HUSH 15:06
PROVIDERS: PCP Internal Medicine; Visit Provider Urology
DX: N13.2 Hydronephrosis with renal and ureteral calculous obstruction (principal); Z96.0 Presence of urogenital implants; Z13.9 Encounter for screening, unspecified
CPT/HCPCS: 52310; 99214

== ENCOUNTER 2025-02-28 08:09 | Outpatient (AMB) | payer MEDICARE, OTHER, SELFPAY ==
[2025-02-28 08:15] VITALS: BP 124/52; PULSE 78; BMI 20.6
--- NOTE | 2025-02-28 08:15 | MHC.OFFVIS ---
Vital Signs 02/28/25 08:15 Height 5 ft 1 in Weight 108 lb 14.534 oz BMI 20.6 BP 124/52 L Blood Pressure Location Lt brachial Position Sitting Pulse 78 Pulse Source Pulse Oximeter Intake Visit Reasons: s/p [facility] / holter/ labs Centrifugal Screen Tender Required: No Research And Development Researcher: Research And Development Researcher Present Allergies No Known Allergies Allergy (Verified 02/28/25 08:18) Medication List - Last Reconciled 02/28/25 by KLEVER RamosC acetaminophen (Tylenol) 325 mg PO Q4H PRN apixaban (Eliquis) 5 mg PO BID atenolol 100 mg See Protocol PO BID atenolol 50 mg See Protocol PO BEDTIME calcium carbonate 500 mg PO DAILY cefuroxime axetil 500 mg PO BID digoxin 0.125 mg See Protocol PO Q2D diltiazem HCl CD (Cardizem CD) 120 mg See Protocol PO DAILY furosemide 40 mg See Protocol PO DAILY glipizide ER 2.5 mg PO DAILY lisinopril 60 mg PO DAILY metformin ER 500 mg PO TID [id number]-bnwbm-calcium carb-K1 400 mcg-500 mg calcium-20 mcg (Women's 50 Plus Multivitamin) 1 tab PO DAILY sertraline 100 mg PO DAILY simvastatin 80 mg PO BEDTIME HPI HPI s/p [facility] / holter/ labs: Details: Yumiok is a 79-year-old female presenting with atrial fibrillation and congestive heart failure. Approximately one month prior, she was hospitalized for pyelonephritis and hydronephrosis, subsequently diagnosed with new-onset atrial fibrillation and CHF. A chest CT revealed interstitial pulmonary edema. AFib was managed with rate control medications, and CHF was addressed with diuretics. Discharge involved furosemide and outpatient monitoring. An echocardiogram showed a 54% EF, grade 2 diastolic dysfunction, moderate MR, mild to moderate TR, and moderate pulmonary hypertension. Holter monitor shows atrial fibrillation with average heart rate 82 beats per minute. Post-discharge, she reports no chest pain, dyspnea, or peripheral edema. Mild night palpitations occur intermittently, resolving quickly. Her daughter manages medication administration, and the patient inquired about medication-induced diarrhea. Cardioversion was discussed as a reset for AFib. Son is present [facility] Medical History Congestive heart failure Mood disorder Mixed hyperlipidemia Hypertension Non-insulin dependent type 2 diabetes mellitus Social History Household Members: None Housing: House Do you presently have visiting nurse or other home services: No Patient Tobacco Use Status: Never used Tobacco service: No Review of Systems Const All systems reviewed & are unremarkable except as noted in HPI and below ENT Denies no additional complaints and Denies dizziness Card Denies chest pain, Denies chest pain at rest, Denies chest pain with activity, Denies rapid heart rate, Denies pedal edema, Denies edema, Denies leg edema, Denies lightheadedness, Denies palpitations, Denies dyspnea, Denies dyspnea on exertion and Denies orthopnea Resp Denies cough, Denies dyspnea and Denies dyspnea on exertion GI Denies hematochezia and Denies change in stool character Musc Denies abnormal gait, Denies limited range of motion, Denies muscle cramps, Denies muscle weakness, Denies numbness, Denies radiating pain into limb, Denies stiffness and Denies tingling Neuro Denies abnormal gait, Denies dizziness, Denies numbness and Denies tingling Endo Denies palpitations Physical Exam Vital Signs: Last Vital Signs Pulse 78 02/28/25 08:15 BP 124/52 L 02/28/25 08:15 BMI result Body Mass Index 20.6 Const Other: petite elderly General: cooperative, comfortable and no acute distress Orientation/consciousness: patient oriented x3 Neck Neck: Yes normal visual inspection Resp Effort & Inspection: normal respiratory effort Auscultation: clear to auscultation bilaterally, no rales, no rhonchi and no wheezes Cardio Rate: regular rate Rhythm: abnormal rhythm Heart sounds: S1 normal heart sound present, S2 normal heart sound present, no gallops, no murmurs and no rubs Skin General skin exam: no rashes or lesions noted Neuro General: patient oriented x3 Extrem General: Yes normal to inspection, No no pedal edema and No calf tenderness Psych Appearance: grossly normal Mental Status: mental status grossly normal Speech and movement: Normal speech and movement present Results Reviewed Results Reviewed: - Echocardiogram 01/27/25: Ejection fraction 54%, grade 2 diastolic dysfunction, moderate mitral regurgitation, mild to moderate tricuspid regurgitation, moderate pulmonary hypertension Assessment & Plan Assessment & Plan (1) Afib: Code(s): I48.91 - Unspecified atrial fibrillation Category: Medical Plan: New finding of atrial fibrillation which has been seemingly persistent. Holter monitor done post hospital discharge shows atrial fibrillation throughout with controlled rate. Her echocardiogram showed normal EF, left atrium moderately dilated right atrium mildly dilated. She has been treated with heart rate control using atenolol, diltiazem and digoxin every other day. She is clinically in atrial fibrillation today based on irregular heart tones. She feels intermittent heart palpitations. Will check digoxin level, BMP, CBC (due to pale skin tone and use of anticoagulation). Continue medications including Eliquis without interruption. Her dose of 5 mg b.i.d. is appropriate for her age and creatinine. Benefits of restoring sinus rhythm reviewed with her. Will arrange cardioversion in the next few weeks. Cardiology follow-up 2 weeks after. (2) Congestive heart failure: Code(s): I50.9 - Heart failure, unspecified Category: Medical Plan: Mild Congestive heart failure during recent hospitalization. Diuresed and put on Lasix 40 mg daily. On exam today she does not appear fluid overloaded. Will check labs today. (3) Hypertension: Code(s): I10 - Essential (primary) hypertension Category: Medical Plan: Blood pressure goal less than 130/80. Well controlled at this time. No med changes made. (4) Hospital discharge follow-up: Code(s): Z09 - Encounter for follow-up examination after completed treatment for conditions other than malignant neoplasm Category: Medical Plan: Hospital discharge and and cardiology notes reviewed Plan During the visit, I discussed with the patient and her son the diagnosis and management of atrial fibrillation and CHF. I emphasized the complications associated with AFib, notably stroke risk, hence the continuation of anticoagulation with Eliquis. The potential efficacy and risks of cardioversion were detailed, including the necessity and process of the intervention, possible repeat applications, and expected outcomes. The need for follow-up post-cardioversion was discussed with the patient, and assurance was provided regarding the safety of the procedure. Inquiries about symptoms such as diarrhea possibly linked to current medication were addressed. I advised reviewing medication administration to alleviate any adverse effects. Follow-up timing and subsequent lab evaluations were agreed upon, and instructions provided to the patient's son to ensure medication adherence. Orders: Orders Cardioversion Today I48.91 - Unspecified atrial fibrillation Basic Metabolic Panel Today I48.91 - Unspecified atrial fibrillation Complete Blood Count Auto Diff Today I48.91 - Unspecified atrial fibrillation Digoxin Today I48.91 - Unspecified atrial fibrillation, I50.9 - Heart failure, unspecified Patient Instructions: - Continue taking all prescribed medications as directed. - Discuss diet and fluid intake with visiting nurse to ensure proper hydration. - Be aware of any new symptoms such as dizziness, bleeding, or shortness of breath. - Prepare for potential cardioversion procedure with no food intake and agreement on medications to hold on the morning of the procedure. - Coordinate with family for assistance with medication administration and transportation to appointments. - Follow up with lab work at designated hospital lab. - Contact healthcare provider if experiencing any concerns or worsening symptoms. - Review the cardioversion information provided and discuss with family members as needed. Patient was informed and verbally consented to the use of an ambient scribe for clinic note documentation during this visit. Visit time spent on chart review, interview, assessment, orders, documentation. Coding Level of Care Code Est Pt Level 4 (13815) Complex EM visit Add On G2211 Diagnoses Afib I48.91 Congestive heart failure I50.9 Hypertension I10 Hospital discharge follow-up Z09 Time Spent (min) 28
== END 2025-02-28 08:59 | disposition home or self-care (01) ==
LOC: HO.HCS 08:09
PROVIDERS: PCP Internal Medicine; Visit Provider Nurse Practitioner Family
DX: I48.91 Unspecified atrial fibrillation (principal); I50.9 Heart failure, unspecified; I10 Essential (primary) hypertension; Z09 Encounter for follow-up examination after completed treatment for conditions other than malignant neoplasm
CPT/HCPCS: 99214; G2211

== ENCOUNTER → 2025-02-28 08:09 | Outpatient (BNVA) | payer MEDICARE, OTHER, SELFPAY | PROVIDERS: PCP Internal Medicine; Visit Provider Nurse Practitioner Family | DX: Z09 Encounter for follow-up examination after completed treatment for conditions other than malignant neoplasm (principal); I11.0 Hypertensive heart disease with heart failure; I50.9 Heart failure, unspecified; I48.91 Unspecified atrial fibrillation | CPT/HCPCS: 99212 ==

== ENCOUNTER 2025-03-10 15:52 | Outpatient (REF) | payer MEDICARE, OTHER, SELFPAY ==
--- NOTE | ~2025-03-10 | XR_ITS ---
EXAMINATION: XR ABDOMEN KUB CLINICAL INDICATION: N20.0 - Calculus of kidney COMPARISON: CT January 26, 2025 TECHNIQUE: AP view of the abdomen. FINDINGS: Double-J catheter extends from the right renal pelvis to the bladder. A density just lateral to the proximal end of the catheter could represent residual stone. Popcorn calcification in the right hemipelvis is consistent with degenerated fibroid. Vascular calcifications track along the distal end of the catheter is well. Gas is seen scattered from the stomach through the rectum. XR/XR KUB IMPRESSION: Right-sided double-J catheter extends from renal pelvis to bladder. Suspected residual stone in the lower half of the right kidney. Calcified fibroid and vascular calcifications in the right hemipelvis Electronically signed by: Raymundo Hassan MD 03/10/2025 04:29 PM EDT
== END 2025-03-10 15:53 | disposition home or self-care (01) ==
LOC: HO.XRAY 15:52
PROVIDERS: PCP Internal Medicine; Visit Provider Urology
DX: N20.0 Calculus of kidney (principal); Z96.0 Presence of urogenital implants
CPT/HCPCS: 74018

== ENCOUNTER → 2025-03-10 15:58 | Outpatient (BNV) | payer MEDICARE, OTHER, SELFPAY | PROVIDERS: PCP Internal Medicine; Visit Provider Radiology Diagnostic Radiology | DX: Z18.83 Retained stone or crystalline fragments (principal) | CPT/HCPCS: 74018 ==

== ENCOUNTER → 2025-03-11 11:10 | Outpatient (BNVA) | payer MEDICARE, OTHER, SELFPAY | PROVIDERS: PCP Internal Medicine; Visit Provider Urology ==

== ENCOUNTER 2025-03-11 14:13 | Outpatient (AMB) | payer MEDICARE, OTHER, SELFPAY ==
--- NOTE | 2025-03-11 14:14 | MHC.OFFVIS ---
Intake Visit Reasons: KUB Results f/u Intake Note: Patient presents today for TELEHEALTH follow up , right renal stone , urogenital implants Imaging KUB: 03/10/25 Urology Medication:none Blood Thinner:eliquis Antibiotic Allergies:None Commodity Lead Required: No Allergies No Known Allergies Allergy (Verified 03/11/25 14:18) HPI Comments Details: 03/11/25-- History of Present Illness - The patient is a 79-year-old female presenting with kidney stone and obstructive uropathy. - Initially evaluated as an inpatient in January for a urinary tract infection and obstructive uropathy due to a right ureteral stone. - A right ureteral stent was placed to relieve the obstruction. - Recent imaging (KUB) indicates the stone has migrated into the right kidney. - Currently on Eliquis 5 mg twice daily for anticoagulation. - Scheduled for cardioversion to manage cardiac arrhythmia. Results - Imaging (KUB): Stone has migrated into the right kidney. Discussion Notes I discussed with the patient that the kidney stone has moved into the kidney and is no longer blocking the ureter. We will schedule shockwave lithotripsy to break up the stone and remove the stent. This procedure will be done in the hospital with anesthesia. The patient will need to stop Eliquis before the procedure, and we will coordinate with her lead generator for clearance. [facility] Medical History (Updated 03/16/25 @ 11:10 by Lilian Archer RN) Atrial fibrillation Congestive heart failure Mood disorder Mixed hyperlipidemia Hypertension Non-insulin dependent type 2 diabetes mellitus Surgical History (Updated 03/16/25 @ 11:07 by Lilian Archer RN) Hx of cystoscopy Social History Household Members: None Housing: House Do you presently have visiting nurse or other home services: No Patient Tobacco Use Status: Never used Tobacco Have you been hit, kicked, punched, or otherwise hurt by someone within the past year? If so, by whom?: No Are you DNR?: No Advance Directives: No Advance Directives Information Provided: Yes service: No Review of Systems Const All systems reviewed & are unremarkable except as noted in HPI and below Reports no additional complaints Eyes Reports no additional complaints ENT Reports no additional complaints Card Reports no additional complaints Resp Reports no additional complaints GI Reports no additional complaints Reports as per HPI Musc Reports no additional complaints Skin/Breast Reports system reviewed and no additional complaints, except as documented Neuro Reports no additional complaints Psych Reports no additional complaints Endo Reports no additional complaints Josafat/Lymph Reports no additional complaints Aller/Immun Reports no additional complaints Telehealth Telehealth Telehealth Platform: [employer] Location of provider rendering services: practice address Location of patient: address on file Patient Identification confirmed using: Name, : Yes Telehealth method: video Patient verbally consented to treatment: Yes Patient verbally consented to billing insurance company: Yes Patient informed of any privacy concerns related to visit: Yes Assessment & Plan Assessment & Plan (1) Right renal stone: Code(s): N20.0 - Calculus of kidney Category: Medical (2) Ureteral stent present: Code(s): Z96.0 - Presence of urogenital implants Category: Medical Plan Plan - Schedule shockwave lithotripsy to break up the right kidney stone and remove the stent. - Coordinate with the patient's lead generator to manage anticoagulation therapy, specifically stopping Eliquis prior to the procedure. Patient Instructions: The patient had an opportunity to ask questions regarding treatment plan. The patient expressed understanding and agreement with the above treatment plan. The patient is aware they should contact our office by phone for worsening of their current condition or the appearance of new symptoms. Compliance is encouraged with any medications and followup testing that is ordered. It is a privilege to be allowed the opportunity to participate in the urologic care of your patient. If you have any questions or concerns regarding treatment for the above conditions please do not hesitate to contact me. The office telephone contact is [phone]. This note is constructed in part using voice recognition software. While every effort has been made to ensure accuracy linux admin errors may have been included. Yours sincerely, Valdemar Shah MD Scribe Plan - Not visible on output: Patient was informed and verbally consented to the use of an ambient scribe for clinic note documentation during this visit. Coding Level of Care Code Tele Est Pt Level 4 (25443) Diagnoses Right renal stone N20.0 Ureteral stent present Z96.0
== END 2025-03-11 16:38 | disposition home or self-care (01) ==
PROVIDERS: PCP Internal Medicine; Visit Provider Urology
DX: N20.0 Calculus of kidney (principal); Z96.0 Presence of urogenital implants
CPT/HCPCS: 99214

== ENCOUNTER 2025-03-15 12:39 | Outpatient (REF) | payer MEDICARE, OTHER, SELFPAY ==
[2025-03-15 13:03] LABS: Appearance Urine Cloudy; Color Urine DK YELLOW; Glucose Urine UA Negative (Negative); Leukocyte Esterase Urine Moderate (2+) (Negative); Nitrite Urine Positive (Negative); PH 5.5 (5.0-9.0); Specific Gravity - Urine 1.025 (1.005-1.025); UMIC TRIGGER UACC YES; Urine Blood Large (3+) (Negative); Urine Ketones Trace mg/dL (Negative); Urine Protein 100 (2+) mg/dL (Neg-Trace)
[2025-03-15 13:17] LABS: Bacteria Urine 4+ (None Seen); RBC Urine >20 /HPF (0-2); Squamous Epithelial Cell Urine >20 /HPF (0-2); UACC Culture Trigger YES; WBC Urine 21-50 /HPF (0-5)
== END 2025-03-15 12:40 | disposition home or self-care (01) ==
LOC: HO.HVNA 12:39
PROVIDERS: Visit Provider Urology
DX: R30.0 Dysuria (principal)
CPT/HCPCS: 81001; 81003; 87086

== ENCOUNTER 2025-03-23 08:30 | Day surgery (SDC) | payer MEDICARE, OTHER, SELFPAY ==
--- NOTE | 2025-03-22 10:06 | HO.ANESPROP2 ---
Documented by User: Neli Dillon NP 03/22/25 10:10 HPI - Anesthesia Eval Consult details Narrative: 79yo F for Right Lithotripsy ESW with stent removal Eliquis for afib. Follows [facility]. OK'd hold preop [facility] Active Problems Active Problems: All Active Problems Hospital discharge follow-up (Acute) Afib (Acute) Ureteral stent present (Acute) Right renal stone (Acute) E coli bacteremia (Acute) Mood disorder (Acute) Mixed hyperlipidemia (Acute) Hypertension (Acute) Non-insulin dependent type 2 diabetes mellitus (Acute) Past Medical History Medical History (Updated 03/16/25 @ 11:10 by Lilian Archer RN) Atrial fibrillation Congestive heart failure Mood disorder Mixed hyperlipidemia Hypertension Non-insulin dependent type 2 diabetes mellitus Family History Family history of problems with anesthesia: No Surgical History Surgical History (Updated 03/16/25 @ 11:07 by Lilian Archer RN) Hx of cystoscopy History of Problems with Anesthesia: No Social History Social History Household Members: None Housing: House Do you presently have visiting nurse or other home services: No Patient Tobacco Use Status: Never used Tobacco Have you been hit, kicked, punched, or otherwise hurt by someone within the past year? If so, by whom?: No Are you DNR?: No Advance Directives: No Advance Directives Information Provided: Yes service: No Meds Allergies Allergy/AdvReac Type Severity Reaction Status Date / Time No Known Allergies Allergy Verified 03/11/25 14:18 Home Medications ?Medication ?Instructions ?Recorded ?Confirmed ?Last Taken ?Type acetaminophen 325 mg tablet 325 mg PO Q4H PRN Pain 01/26/25 03/16/25 Unknown History (Tylenol) calcium carbonate 500 mg PO DAILY 01/26/25 03/16/25 01/25/25 History glipizide 2.5 mg tablet, extended 2.5 mg PO DAILY 01/26/25 03/16/25 01/25/25 History release 24 hr lisinopril 40 mg tablet 60 mg PO DAILY 01/26/25 03/16/25 01/25/25 History metformin 500 mg tablet,extended 500 mg PO TID 01/26/25 03/16/25 01/25/25 History release 24 hr kcgdvozk-ipo-wchgy ac 400 1 tab PO DAILY 01/26/25 03/16/25 01/25/25 History mcg-calcium carb 500 mg-vit K1 20 mcg tablet (Women's 50 Plus Multivitamin) sertraline 100 mg tablet 100 mg PO DAILY 01/26/25 03/16/25 03/23/25 History simvastatin 80 mg tablet 80 mg PO BEDTIME 01/26/25 03/16/25 01/25/25 History Exam Pertinent Lab Results Pertinent Lab Results: Laboratory Tests 02/02/25 06:48 WBC 7.9 Hgb 12.9 Hct 37.0 Plt Count 299 Sodium 137 Potassium 4.0 Chloride 98 Carbon Dioxide 30 H BUN 20 H Creatinine 0.74 Narrative Narrative: ECHO 01/2025 Conclusions: - The left ventricular systolic function is low normal. The calculated ejection fraction is 54% by biplane method. - Evidence suggests grade II (moderate) diastolic dysfunction. - There is moderate mitral annular calcification. There is mild mitral valve regurgitation. - There is mild to moderate tricuspid valve regurgitation. - Moderate pulmonary hypertension is present. EKG 01/2025 Vent. Rate : 106 BPM Atrial Rate : 326 BPM P-R Int : * ms QRS Dur : 98 ms QT Int : 368 ms P-R-T Axes : 93 -2 80 degrees QTcB Int : 488 ms Atrial flutter with variable A-V block Abnormal ECG When compared with ECG of 31-Jan-2025 05:41, Atrial flutter has replaced Atrial fibrillation Holter 01/2025 1. Patient was monitored for total period of 2 days and 5 hours 2. Baseline was atrial fibrillation with average heart of 82 beats per minute with overall good rate control 3. No significant pauses noted 4. No patient reported events Assessment and Plan Assessment Anesthesia Assessment: Chart Reviewed Final Anesthetic Review Family History of Problems with Anesthesia: No History of Problems with Anesthesia: No Documented by User: Jesus España MD 03/23/25 11:03 [facility] Past Medical History Medical History (Updated 03/16/25 @ 11:10 by Lilian Archer RN) Atrial fibrillation Congestive heart failure Mood disorder Mixed hyperlipidemia Hypertension Non-insulin dependent type 2 diabetes mellitus Surgical History Surgical History (Updated 03/16/25 @ 11:07 by Lilian Archer RN) Hx of cystoscopy Social History Social History Household Members: None Housing: House Do you presently have visiting nurse or other home services: No Patient Tobacco Use Status: Never used Tobacco Have you been hit, kicked, punched, or otherwise hurt by someone within the past year? If so, by whom?: No Are you DNR?: No Advance Directives: No Advance Directives Information Provided: Yes service: No Meds Allergies Allergy/AdvReac Type Severity Reaction Status Date / Time No Known Allergies Allergy Verified 03/11/25 14:18 Home Medications ?Medication ?Instructions ?Recorded ?Confirmed ?Last Taken ?Type acetaminophen 325 mg tablet 325 mg PO Q4H PRN Pain 01/26/25 03/16/25 Unknown History (Tylenol) calcium carbonate 500 mg PO DAILY 01/26/25 03/16/25 01/25/25 History glipizide 2.5 mg tablet, extended 2.5 mg PO DAILY 01/26/25 03/16/25 01/25/25 History release 24 hr lisinopril 40 mg tablet 60 mg PO DAILY 01/26/25 03/16/25 01/25/25 History metformin 500 mg tablet,extended 500 mg PO TID 01/26/25 03/16/25 01/25/25 History release 24 hr godwffdi-etf-gdbjb ac 400 1 tab PO DAILY 01/26/25 03/16/25 01/25/25 History mcg-calcium carb 500 mg-vit K1 20 mcg tablet (Women's 50 Plus Multivitamin) sertraline 100 mg tablet 100 mg PO DAILY 01/26/25 03/16/25 03/23/25 History simvastatin 80 mg tablet 80 mg PO BEDTIME 01/26/25 03/16/25 01/25/25 History Exam Airway Mallampati Class: I TM Dist: >3cm Neck ROM: Full Loose/Missing/Broken Teeth: Yes, Upper and Lower Heart: ok. see above. Lungs: ok Assessment and Plan Assessment Anesthesia Assessment: Anesthesia Plan Discussed Final Anesthetic Review NPO: Yes ASA Class: IV Final Preanesthetic Review: No Changes in Pt Med Stat, Meds/Allgs Chart Reviewed, Consent Obtained/Reviewed and Anes Risks/Benef Reviewed Patient Risk: High Procedure Risk: Low Anesthetic Plan Anesthetic Plan: GA and Agree w/ Assess. and Plan Disposition: Standard PACU
--- NOTE | ~2025-03-23 | XR_ITS ---
EXAMINATION: XR ABDOMEN 1 VIEW (KUB) HISTORY: preESWL-right COMPARISON: Comparison is made with the prior examination dated 03/10/2025. FINDINGS: Two supine views of the abdomen are submitted. The bowel gas pattern is unremarkable, without evidence of mechanical obstruction. There is a large amount of stool throughout the colon. A right nephroureteral stent is again seen in place. Multiple clustered calcifications are again seen overlying the lower pole of the right renal shadow. Calcifications adjacent to the distal portion of the stent were shown to represent a calcified fibroid on CT 01/26/2025. There are no abnormal soft tissue masses. The bones are intact. There is calcification of the abdominal aorta. XR/XR KUB IMPRESSION: Right nephroureteral stent in place. Clustered calcifications overlying the lower pole of the right renal shadow. Electronically signed by: Edgar Ayala MD 03/23/2025 11:18 AM EDT
[2025-03-23 09:12] LABS: Glucose, Whole Blood 140 mg/dL (60-115)
[2025-03-23 09:25] VITALS: BP 175/74; PULSE 77; RESP 20; TEMP 37; O2SAT 97; BMI 21.8
[2025-03-23] MEDS: Lactated Ringers 1,000 ML 50 ML IVCONT (09:28)
--- NOTE | 2025-03-23 10:15 | PC.NURSE ---
pt recieved one liter fluid in preop
--- NOTE | 2025-03-23 10:56 | MHC.SHP ---
Pre-Procedural Eval Section A - 24 Hr Update-Section A only Date of Service: 03/23/25 The patient is an INPATIENT: No The patient has been examined within 24 hours of the surgical procedure. The History & Physical has been completed within 30 days and I have reviewed it.: Yes Section B - Complete if H&P > 30 days Chief Complaint: Calculus of kidney, right, ureteral stent present Allergies: Allergies Allergy/AdvReac Type Severity Reaction Status Date / Time No Known Allergies Allergy Verified 03/11/25 14:18 Plan Diagnosis/Plan: Unchanged I have reviewed the history and physical and performed a pertinent physical examination on my patient. No changes have occurred unless specified. Right ESWL. Cystoscopy remove right ureteral stent. Discussed risks to include but not limited to, blood in the urine, bruising to the skin, kidney hematoma, possible need for another procedure if a stone fragment obstructs the ureter while passing, possible need to repeat procedure if stone is not completely fragmented. Time Spent With Patient Time: Total time managing care of this patient today ____ minutes.
--- NOTE | 2025-03-23 10:56 | W.PM.OPN ---
Operative Note Operative Note Date of Service: 03/23/25 Narrative: PreOperative Diagnosis:? ? Right Renal stone Post Operative Diagnosis:? Right? Renal stone Procedure:? Right? ESWL, cystoscopy stent removal Surgeon:?Dr Valdemar Shah Anesthesia:? General Disposible Flexible Cystoscope Used Indications for procedure: The patient understands there is a risk of bruising or hematoma to the kidney, infection, and stone migration following the procedure and subsequent intervention may be required.? - Imaging 8 x 7 mm stone Procedure: After informed consent was verified the patient was brought to the operating room and placed in a supine position.? Anesthesia was performed per protocol. Safety pause time-out was performed. Imaging was displayed in the room and laterality confirmed. The patient was repositioned, frog/leged, the genitalia was prepped, the disposable flexible cystoscope was passed into the bladder the stent was visualized using a grasper the stent was removed without difficulty. The patient was returned to supine position, right ESWL was performed.?The stone was visualized on both fluoroscopy and ultrasound.? Shockwave lithotripsy was performed, with a maximum rate of 120 hertz. After the first 300 shocks a pause for 3 minutes was completed.? After 1500 shocks there was minimal change in the stone which appeared very dense, the last 1000 shocks were done at a rate of 60 hertz. A total of 2500 shocks to a maximum of power of 18 with a maximum rate of 120 hertz.? Some fragmentation of the stone was appreciated. The patient tolerated the procedure well and was transferred to the recovery area upon completion. Complications: None
[2025-03-23 12:02] VITALS: BP 150/56; PULSE 73; RESP 18; TEMP 36.2; O2SAT 99
[2025-03-23 12:07] VITALS: BP 153/57; PULSE 72; RESP 17; O2SAT 100
[2025-03-23 12:12] VITALS: BP 175/60; PULSE 69; RESP 16; O2SAT 99
[2025-03-23 12:17] VITALS: BP 165/64; PULSE 62; RESP 16; O2SAT 96
[2025-03-23 12:32] VITALS: BP 168/50; PULSE 70; RESP 16; TEMP 36.4; O2SAT 97
== END 2025-03-23 13:19 | disposition home or self-care (01) ==
PROVIDERS: PCP Internal Medicine; Visit Provider Urology
PROC: (CPT 50590; principal; 2025-03-23 11:20)
DX: N20.0 Calculus of kidney (principal); N13.8 Other obstructive and reflux uropathy; Z96.0 Presence of urogenital implants; I11.0 Hypertensive heart disease with heart failure; I50.9 Heart failure, unspecified; E78.2 Mixed hyperlipidemia; E11.9 Type 2 diabetes mellitus without complications; F39 Unspecified mood [affective] disorder; I48.91 Unspecified atrial fibrillation; Z79.01 Long term (current) use of anticoagulants; Z79.84 Long term (current) use of oral hypoglycemic drugs; Z79.899 Other long term (current) drug therapy
CPT/HCPCS: 50590; 74018; 82947; 87086; 87088; 87186; J0131; J0690; J2003; J2704; J3010

== ENCOUNTER → 2025-03-23 08:30 | Outpatient (BNV) | payer MEDICARE, OTHER, SELFPAY | PROVIDERS: PCP Internal Medicine; Visit Provider Urology | DX: N20.0 Calculus of kidney (principal); Z96.0 Presence of urogenital implants | CPT/HCPCS: 50590; 52310 ==

== ENCOUNTER → 2025-03-23 09:00 | Outpatient (BNV) | payer MEDICARE, OTHER, SELFPAY | PROVIDERS: PCP Internal Medicine; Visit Provider Radiology Diagnostic Radiology | DX: Z96.0 Presence of urogenital implants (principal) | CPT/HCPCS: 74018 ==

== ENCOUNTER 2025-04-21 10:37 | Outpatient (AMB) | payer MEDICARE, OTHER, SELFPAY ==
--- NOTE | 2025-04-21 11:13 | MHC.OFFVIS ---
Vital Signs 04/21/25 11:15 Height 4 ft 11 in Weight 101 lb 6.602 oz BMI 20.5 BP 128/66 Blood Pressure Location Lt brachial Position Sitting Pulse 68 Pulse Source Pulse Oximeter Intake Visit Reasons: 6 week follow up per Tiffanie Allergies No Known Allergies Allergy (Verified 03/11/25 14:18) Medication List - Last Reconciled 04/21/25 by Simeon Rock MD acetaminophen (Tylenol) 325 mg PO Q4H PRN apixaban (Eliquis) 5 mg PO BID atenolol 100 mg See Protocol PO BID atenolol 50 mg See Protocol PO BEDTIME calcium carbonate 500 mg PO DAILY digoxin 0.125 mg See Protocol PO Q2D diltiazem HCl CD (Cardizem CD) 120 mg See Protocol PO DAILY furosemide 40 mg See Protocol PO DAILY glipizide ER 2.5 mg PO DAILY lisinopril 60 mg PO DAILY metformin ER 500 mg PO TID dj-leh-atalt-calcium carb-K1 400 mcg-500 mg calcium-20 mcg (Women's 50 Plus Multivitamin) 1 tab PO DAILY nitrofurantoin monohyd/m-cryst 100 mg (Macrobid) 100 mg PO Q12H 5 days oxycodone-acetaminophen 5-325 mg (Percocet) 1 tab PO Q6H PRN sertraline 100 mg PO DAILY simvastatin 80 mg PO BEDTIME HPI Comments Details: Isela returns for follow-up. She was recently admitted to the hospital for urological issues. In that setting, she was going back and forth atrial fibrillation. Eventually, it seems that she had persistent atrial fibrillation which was difficult to control. She was discharged home on diltiazem, atenolol as well as digoxin. Also on Eliquis. There was planned for cardioversion but it got delayed because she need more urologic procedures. Overall, she states she feels okay. No clear-cut cardiac symptoms. [facility] Medical History (Updated 04/21/25 @ 11:55 by Simeon Rock MD) Atrial fibrillation Congestive heart failure Mood disorder Mixed hyperlipidemia Hypertension Non-insulin dependent type 2 diabetes mellitus Surgical History (Updated 03/16/25 @ 11:07 by Lilian Archer RN) Hx of cystoscopy Social History Household Members: None Housing: House Do you presently have visiting nurse or other home services: No Patient Tobacco Use Status: Never used Tobacco service: No Review of Systems Const Denies weakness ENT Denies dizziness Card Denies chest pain, Denies chest pain with activity, Denies syncope, Denies rapid heart rate, Denies pedal edema, Denies edema, Denies leg edema, Denies lightheadedness, Denies palpitations, Denies dyspnea, Denies dyspnea on exertion and Denies orthopnea Resp Denies cough, Denies dyspnea and Denies dyspnea on exertion GI Denies hematochezia and Denies change in stool character Musc Denies abnormal gait, Denies muscle cramps, Denies muscle weakness, Denies numbness, Denies radiating pain into limb and Denies tingling Neuro Denies abnormal gait, Denies dizziness, Denies syncope, Denies numbness, Denies tingling and Denies weakness Endo Denies palpitations Physical Exam Vital Signs: Last Vital Signs Pulse 68 04/21/25 11:15 BP 128/66 04/21/25 11:15 BMI result Body Mass Index 20.5 Const General: comfortable and no acute distress Orientation/consciousness: patient oriented x3 HEENT Other: Unremarkable Head: Yes normal to inspection Neck Neck: Yes normal visual inspection Chest Chest palpation & inspection: normal inspection of the chest Resp Auscultation: clear to auscultation bilaterally Cardio Palpation: normal PMI Heart sounds: S1 normal heart sound present, S2 normal heart sound present, no gallops, no murmurs and no rubs GI Palpation (GI): Soft to palpation Back/Spine/Pelvis Other: unremarkable Skin General skin exam: no rashes or lesions noted Neuro General: patient oriented x3 Extrem General: Yes normal to inspection Psych Mental Status: mental status grossly normal Office Procedures EKG Details: EKG today shows atrial flutter at a rate of 65/Min. [id number], Complete Assessment & Plan Assessment & Plan (1) Persistent atrial fibrillation: Code(s): I48.19 - Other persistent atrial fibrillation Category: Medical Plan: She is currently on high-dose of beta-blockers along with diltiazem and digoxin. It would be preferable to restore sinus rhythm. We will schedule cardioversion. She has taken uninterrupted anticoagulation for the last few weeks. Advised to stop all rate control medications 2 days prior to cardioversion to avoid any postprocedure bradycardia. To take Eliquis till the morning of procedure. Also to get routine labs before the procedure. Possibly short-term amiodarone followed by [place]. (2) Atrial flutter: Code(s): I48.92 - Unspecified atrial flutter Category: Medical Plan: As above. (3) Chronic heart failure with preserved ejection fraction: Code(s): I50.32 - Chronic diastolic (congestive) heart failure Category: Medical Plan: Stable. On diuretics. Plan Discussion Notes I discussed with the patient the current status of her atrial fibrillation, which is controlled but persistent. We reviewed her medication regimen and planned for a cardioversion procedure next week. The patient was informed about the need for pre-procedure blood work. Patient was informed and verbally consented to the use of an ambient scribe for clinic note documentation during this visit. Patient Instructions: - Prepare for cardioversion procedure next week. - contact the clinic with any questions. Coding Level of Care Code Est Pt Level 4 (61169) Complex EM visit Add On G2211 Diagnoses Persistent atrial fibrillation I48.19 Atrial flutter I48.92 Chronic heart failure with preserved ejection fraction I50.32 CPT Codes EKG - CPT: 17662-[id number], Complete ([id number])
[2025-04-21 11:15] VITALS: BP 128/66; PULSE 68; BMI 20.5
== END 2025-04-21 13:08 | disposition home or self-care (01) ==
LOC: HO.HCS 10:38
PROVIDERS: PCP Internal Medicine; Visit Provider Internal Medicine
DX: I48.19 Other persistent atrial fibrillation (principal); I48.92 Unspecified atrial flutter; I50.32 Chronic diastolic (congestive) heart failure
CPT/HCPCS: 93010; 99214; G2211

== ENCOUNTER → 2025-04-21 10:37 | Outpatient (BNVA) | payer MEDICARE, OTHER, SELFPAY | PROVIDERS: PCP Internal Medicine; Visit Provider Internal Medicine | DX: I48.19 Other persistent atrial fibrillation (principal); I48.92 Unspecified atrial flutter; I50.32 Chronic diastolic (congestive) heart failure; I44.39 Other atrioventricular block; R94.31 Abnormal electrocardiogram [ECG] [EKG] | CPT/HCPCS: 93005; 99212 ==